=== PATIENT | male | born 1950 | race Caucasian/White ===

== ENCOUNTER 2017-06-15 05:14 | Emergency (ER) | payer OTHER, MEDICARE ==
[2017-06-15] MEDS ORDERED: Sodium Chloride 0.9% 2.5 ML Syringe FLUSH PRN (06:01)
[2017-06-15] MEDS ORDERED: Sodium Chloride 0.9% 10 ML Syringe FLUSH PRN (06:01)
[2017-06-15] MEDS ORDERED: Sodium Chloride 0.9% 1,000 ML IV ONE (06:03)
--- NOTE | 2017-06-15 06:03 | EDM.PDOC ---
ED HPI GENERAL MEDICAL PROBLEM - General Chief Complaint: Skin Complaint Stated Complaint: LIGHT-HEADED, FEVERISH, NEW MEDICINE Time Seen by Provider: 06/15/17 06:59 - History of Present Illness INITIAL COMMENTS - FREE TEXT/NARRATIVE: HISTORY AND PHYSICAL: History of present illness: Patient 67-year-old male presents with a concern of intermittent fever chills who recently had a cellulitis on his right leg for which he was put on Bactrim. He's had no chest pain no shortness of breath describes an episode of diaphoresis today. He denies abdominal pain and does also admit that the cellulitis on his right leg is markedly improved. Review of systems: As per history of present illness and below otherwise all systems reviewed and negative. Past medical history: As per history of present illness and as reviewed below otherwise noncontributory. Surgical history: As per history of present illness and as reviewed below otherwise noncontributory. Social history: No reported history of drug or alcohol abuse. Family history: As per history of present illness and as reviewed below otherwise noncontributory. Physical exam: HEENT: Atraumatic, normocephalic, pupils reactive, negative for conjunctival pallor or scleral icterus, mucous membranes moist, throat clear, neck supple, nontender, trachea midline. Lungs: Clear to auscultation, breath sounds equal bilaterally, chest nontender. Heart: S1S2, regular, negative for clicks, rubs, or JVD. Abdomen: Soft, nondistended, nontender. Negative for masses or hepatosplenomegaly. Negative for costovertebral tenderness. Pelvis: Stable nontender. Genitourinary: Deferred. Rectal: Deferred. Extremities: Patient is a small excoriated area on his right lower leg minutes proximally 2 cm in diameter is no fluctuance no induration neurovascular exam is unremarkable Neuro: Awake, alert, oriented. Cranial nerves II through XII unremarkable. Cerebellum unremarkable. Motor and sensory unremarkable throughout. Exam nonfocal. Diagnostics: CBC CMP troponin PT/INR chest x-ray influenza screen x-ray right tib-fib blood culture 2 UA urine culture Therapeutics: Saline 1 L bolus Impression: #1 history of fever #2 history of cellulitis right leg improving Definitive disposition and diagnosis as appropriate pending reevaluation and review of above. - Related Data Allergies Allergy/AdvReac Type Severity Reaction Status Date / Time No Known Allergies Allergy Verified 06/15/17 05:20 Home Meds: Home Meds Aspirin/Calcium Carbonate/Mag [Aspirin Buffered 325 mg Tab] 81 tab PO DAILY 10/03 [History] Ascorbic Acid/Bioflavonoids [Vit C-Bioflavonoids SA] 1,000 mg PO DAILY 03/14/16 [History] Coconut Oil 1,200 mg PO DAILY 03/14/16 [History] Fish Oil/DHA/EPA [Fish Oil 1,200 MG] 1 cap PO QID 03/14/16 [History] Flaxseed Oil [Flax Oil] 1 cap PO BID 03/14/16 [History] Glucosam HCl/[place] A/C/Mn [Glucosamine-Chondroitin Cap] 2 cap PO DAILY [History] Losartan Potassium 1 tab PO DAILY 03/14/16 [History] Lutein/Min/Vit C/Vit E Acetate [Ocuvite Lutein] 1 cap PO DAILY 03/14/16 [History ] Multivit&Min/FA/Lycopene/[place] [Bladder 2.2] 1 cap PO DAILY 03/14/16 [History] Neuro-Ps 50 mg PO DAILY 03/14/16 [History] Niacin (Inositol Niacinate) [Niacin Flush Free 500 mg Cap] 1 cap PO DAILY [History] Ubidecarenone [Co Q-10] 2 cap PO DAILY 03/14/16 [History] amLODIPine [Norvasc] 5 mg PO DAILY 03/14/16 [History] Finasteride 5 mg PO DAILY 06/15/17 [History] Mupirocin Oint [Bactroban Nasal Oint] 1 applic TOP TID 06/15/17 [History] Sulfamethoxazole/Trimethoprim [Bactrim Ds Tablet] 1 tab PO BID 06/15/17 [History ] Tamsulosin [Tamsulosin 24 Hr] 0.4 mg PO DAILY 06/15/17 [History] Past Medical History HEENT History: Reports: Impaired Vision Other HEENT History: wears reading glasses Cardiovascular History: Reports: Arrhythmia, High Cholesterol, Hypertension Respiratory History: Reports: None Gastrointestinal History: Reports: None Genitourinary History: Reports: None Musculoskeletal History: Reports: Fracture Neurological History: Reports: Vertigo Other Neuro History: hx of motion sickness, hx of vertigo Psychiatric History: Reports: None Endocrine/Metabolic History: Reports: None Hematologic History: Reports: None Immunologic History: Reports: None Oncologic (Cancer) History: Reports: None Dermatologic History: Reports: None - Infectious Disease History Infectious Disease History: Reports: None - Past Surgical History Head Surgeries/Procedures: Reports: None HEENT Surgical History: Reports: None Respiratory Surgical History: Reports: None GI Surgical History: Reports: None Male Surgical History: Reports: None Endocrine Surgical History: Reports: None Musculoskeletal Surgical History: Reports: ORIF Other Musculoskeletal Surgeries/Procedures:: ORIF left ring finger with pin removal Oncologic Surgical History: Reports: None Dermatological Surgical History: Reports: None Social & Family History - Family History Family Medical History: Noncontributory - Tobacco Use Smoking Status *Q: Never Smoker - Recreational Drug Use Recreational Drug Use: No Drug Use in Last 12 Months: No ED ROS GENERAL - Review of Systems Review Of Systems: ROS reveals no pertinent complaints other than HPI. ED EXAM, SKIN/RASH Exam: See Below (See dictation) Course - Vital Signs Last Recorded V/S: Last Vital Signs Temp 36.1 C 06/15/17 05:14 Pulse 69 06/15/17 05:14 Resp 18 06/15/17 05:14 BP 140/75 06/15/17 05:14 Pulse Ox 98 06/15/17 05:14 - Orders/Labs/Meds Orders: Active Orders 24 hr Category Date Time Status EKG Documentation Completion [RC] STAT Care 06/15/17 06:01 Active Chest 2V [CR] Stat Exams 06/15/17 06:03 Ordered Tibia Fibula Rt [CR] Stat Exams 06/15/17 06:03 Ordered COMPREHENSIVE METABOLIC PN,CMP [CHEM] Stat Lab 06/15/17 06:20 Results CULTURE BLOOD [BC] Stat Lab 06/15/17 06:20 Received CULTURE BLOOD [BC] Stat Lab 06/15/17 06:30 Received CULTURE URINE [RM] Stat Lab 06/15/17 06:02 Ordered TROPONIN I [CHEM] Stat Lab 06/15/17 06:20 Results UA W/MICROSCOPIC [URIN] Stat Lab 06/15/17 06:02 Ordered Sodium Chloride 0.9% [Normal Saline] 1,000 ml Med 06/15/17 06:03 Active IV STAT Sodium Chloride 0.9% [Saline Flush] Med 06/15/17 06:01 Active 10 ml FLUSH ASDIRECTED PRN Sodium Chloride 0.9% [Saline Flush] Med 06/15/17 06:01 Active 2.5 ml FLUSH ASDIRECTED PRN Saline Lock Insert [OM.PC] Stat Oth 06/15/17 06:01 Ordered Medication Orders Sodium Chloride (Normal Saline) 1,000 mls @ 999 mls/hr IV STAT ONE Stop: 06/15/17 07:03 Last Admin: 06/15/17 06:28 Dose: 999 mls/hr Sodium Chloride (Saline Flush) 10 ml FLUSH ASDIRECTED PRN PRN Reason: Keep Vein Open Sodium Chloride (Saline Flush) 2.5 ml FLUSH ASDIRECTED PRN PRN Reason: Keep Vein Open Labs: Laboratory Tests 06/15/17 06/15/17 06/15/17 Range/Units 06:20 06:20 06:20 WBC 3.83 L (4.0-11.0) K/uL RBC 5.41 (4.50-5.90) M/uL Hgb 15.0 (13.0-17.0) g/dL Hct 43.7 (38.0-50.0) % MCV 80.8 (80.0-98.0) fL MCH 27.7 (27.0-32.0) pg MCHC 34.3 (31.0-37.0) g/dL RDW Std Deviation 40.8 (28.0-62.0) fl RDW Coeff of Harika 14 (11.0-15.0) % Plt Count 109 L (150-400) K/uL MPV 9.00 (7.40-12.00) fL Neut % (Auto) 72.8 (48.0-80.0) % Lymph % (Auto) 9.9 L (16.0-40.0) % [place] % (Auto) 11.0 (0.0-15.0) % Eos % (Auto) 6.0 (0.0-7.0) % Baso % (Auto) 0.3 (0.0-1.5) % Neut # (Auto) 2.8 (1.4-5.7) K/uL Lymph # (Auto) 0.4 L (0.6-2.4) K/uL [place] # (Auto) 0.4 (0.0-0.8) K/uL Eos # (Auto) 0.2 (0.0-0.7) K/uL Baso # (Auto) 0.0 (0.0-0.1) K/uL Nucleated RBC % 0.0 /100WBC Nucleated RBCs # 0 K/uL INR 1.02 Lactate 1.0 (0.20-2.00) mmol/L Sodium (136-146) mmol/L Potassium (3.5-5.1) mmol/L Chloride (98-110) mmol/L Carbon Dioxide (21-31) mmol/L BUN (6.0-23.0) mg/dL Creatinine (0.6-1.5) mg/dL Est Cr Clr Drug Dosing Estimated GFR (MDRD) ml/min Glucose (60-110) mg/dL Calcium (8.8-10.8) mg/dL Total Bilirubin (0.1-1.5) mg/dL AST (5-40) IU/L ALT (8-54) IU/L Alkaline Phosphatase (40-150) Total Protein (6.0-8.0) g/dL Albumin (3.4-4.8) g/dL Globulin (2.0-3.5) g/dL Albumin/Globulin Ratio (1.3-2.8) 06/15/17 Range/Units 06:20 WBC (4.0-11.0) K/uL RBC (4.50-5.90) M/uL Hgb (13.0-17.0) g/dL Hct (38.0-50.0) % MCV (80.0-98.0) fL MCH (27.0-32.0) pg MCHC (31.0-37.0) g/dL RDW Std Deviation (28.0-62.0) fl RDW Coeff of Harika (11.0-15.0) % Plt Count (150-400) K/uL MPV (7.40-12.00) fL Neut % (Auto) (48.0-80.0) % Lymph % (Auto) (16.0-40.0) % [place] % (Auto) (0.0-15.0) % Eos % (Auto) (0.0-7.0) % Baso % (Auto) (0.0-1.5) % Neut # (Auto) (1.4-5.7) K/uL Lymph # (Auto) (0.6-2.4) K/uL [place] # (Auto) (0.0-0.8) K/uL Eos # (Auto) (0.0-0.7) K/uL Baso # (Auto) (0.0-0.1) K/uL Nucleated RBC % /100WBC Nucleated RBCs # K/uL INR Lactate (0.20-2.00) mmol/L Sodium 135 L (136-146) mmol/L Potassium 3.7 (3.5-5.1) mmol/L Chloride 105 (98-110) mmol/L Carbon Dioxide 20 L (21-31) mmol/L BUN 22 (6.0-23.0) mg/dL Creatinine 1.6 H (0.6-1.5) mg/dL Est Cr Clr Drug Dosing TNP Estimated GFR (MDRD) 43.1 ml/min Glucose 112 H (60-110) mg/dL Calcium 9.4 (8.8-10.8) mg/dL Total Bilirubin 1.3 (0.1-1.5) mg/dL AST 69 H (5-40) IU/L ALT 103 H (8-54) IU/L Alkaline Phosphatase 99 (40-150) Total Protein 6.3 (6.0-8.0) g/dL Albumin 3.8 (3.4-4.8) g/dL Globulin 2.5 (2.0-3.5) g/dL Albumin/Globulin Ratio 1.5 (1.3-2.8) Meds: Medications Generic Name Dose Route Start Last Admin Trade Name Freq PRN Reason Stop Dose Admin Sodium Chloride 1,000 mls @ 999 mls/hr 06/15/17 06:03 06/15/17 06:28 Normal Saline IV 06/15/17 07:03 999 mls/hr STAT ONE Administration Sodium Chloride 10 ml 06/15/17 06:01 Saline Flush FLUSH ASDIRECTED PRN Keep Vein Open Sodium Chloride 2.5 ml 06/15/17 06:01 Saline Flush FLUSH ASDIRECTED PRN Keep Vein Open Departure - Departure Time of Disposition: 06:59 Disposition: Home, Self-Care 01 Condition: Good Clinical Impression: Cellulitis, Encounter for medical screening examination - Discharge Information Referrals: Olga Lidia Gu, [employer] [Primary Care Provider] - Forms: ED Department Discharge Additional Instructions: The following information is given to patients seen in the emergency department who are being discharged to home. This information is to outline your options for follow-up care. We provide all patients seen in our emergency department with a follow-up referral. The need for follow-up, as well as the timing and circumstances, are variable depending upon the specifics of your emergency department visit. If you don't have a primary care physician on staff, we will provide you with a referral. We always advise you to contact your personal physician following an emergency department visit to inform them of the circumstance of the visit and for follow-up with them and/or the need for any referrals to a consulting specialist. The emergency department will also refer you to a specialist when appropriate. This referral assures that you have the opportunity for followup care with a specialist. All of these measure are taken in an effort to provide you with optimal care, which includes your followup. Under all circumstances we always encourage you to contact your private physician who remains a resource for coordinating your care. When calling for followup care, please make the office aware that this follow-up is from your recent emergency room visit. If for any reason you are refused follow-up, please contact the [facility] emergency department at and asked to speak to the emergency department charge nurse. Continue medications as prescribed follow-up primary medical doctor on the today 's return as needed as discussed - My Orders Last 24 Hours: My Active Orders 06/15/17 06:01 EKG Documentation Completion [RC] STAT Sodium Chloride 0.9% [Saline Flush] 10 ml FLUSH ASDIRECTED PRN Sodium Chloride 0.9% [Saline Flush] 2.5 ml FLUSH ASDIRECTED PRN Saline Lock Insert [OM.PC] Stat 06/15/17 06:02 CULTURE URINE [RM] Stat UA W/MICROSCOPIC [URIN] Stat 06/15/17 06:03 Chest 2V [CR] Stat Tibia Fibula Rt [CR] Stat Sodium Chloride 0.9% [Normal Saline] 1,000 ml IV STAT 06/15/17 06:20 COMPREHENSIVE METABOLIC PN,CMP [CHEM] Stat CULTURE BLOOD [BC] Stat TROPONIN I [CHEM] Stat 06/15/17 06:30 CULTURE BLOOD [BC] Stat - Assessment/Plan Last 24 Hours: My Active Orders 06/15/17 06:01 EKG Documentation Completion [RC] STAT Sodium Chloride 0.9% [Saline Flush] 10 ml FLUSH ASDIRECTED PRN Sodium Chloride 0.9% [Saline Flush] 2.5 ml FLUSH ASDIRECTED PRN Saline Lock Insert [OM.PC] Stat 06/15/17 06:02 CULTURE URINE [RM] Stat UA W/MICROSCOPIC [URIN] Stat 06/15/17 06:03 Chest 2V [CR] Stat Tibia Fibula Rt [CR] Stat Sodium Chloride 0.9% [Normal Saline] 1,000 ml IV STAT 06/15/17 06:20 COMPREHENSIVE METABOLIC PN,CMP [CHEM] Stat CULTURE BLOOD [BC] Stat TROPONIN I [CHEM] Stat 06/15/17 06:30 CULTURE BLOOD [BC] Stat
[2017-06-15 06:53] LABS: CHLORIDE,CL 105 mmol/L (98-110); SODIUM,NA 135 mmol/L (136-146)
[2017-06-15 08:06] VITALS: BP 125/73
--- NOTE | 2017-06-15 15:07 | CR ---
EXAM DATE: 06/15/17 PATIENT'S AGE: 67 Patient: LUIZA EASON Facility: [place], [place] Site . Site : 1950 Study: XRay Chest [id number]/26/2018 7:33:23 AM Ordering Physician: Nancy Umana Final Report: INDICATION: Fever and chills COMPARISON: none TECHNIQUE: Two view chest. FINDINGS: The lungs are clear. The heart, mediastinum and pulmonary vessels are of normal size. There is no evidence of pleural fluid. IMPRESSION: No pneumonia Dictated by Dong Horowitz MD @ Jun 15 2017 7:35AM (Electronic Signature) Report Signed by Proxy. [facility] HOSPITALRosemary
--- NOTE | 2017-06-15 15:08 | CR ---
EXAM DATE: 06/15/17 PATIENT'S AGE: 67 Patient: LUIZA EASON Facility: [place], [place] Site . Site : 1950 Study: XRay Extremity Right TIB FIB [id number]/26/2018 7:34:04 AM Ordering Physician: Nancy Umana Final Report: INDICATION: Nonhealing sore within the right lower leg. TECHNIQUE: 2-view tibia and fibula. COMPARISON: none FINDINGS: The knee and ankle are anatomically aligned. There is no evidence of a bone erosion, fracture or periosteal new bone formation within the tibia and fibula. There is no evidence gas within the soft tissues. IMPRESSION: No evidence of osteomyelitis. Dictated by Dong Horowitz MD @ Jun 15 2017 7:35AM (Electronic Signature) Report Signed by Proxy. ANAMIKA
== END 2017-06-15 08:04 | disposition home or self-care (01) ==
LOC: MW.ED 05:14
DX: L03.115 Cellulitis of right lower limb (principal); I10 Essential (primary) hypertension; E78.00 Pure hypercholesterolemia, unspecified; Z79.899 Other long term (current) drug therapy; Z79.82 Long term (current) use of aspirin
CPT/HCPCS: 36415; 71046; 73590; 80053; 81001; 82962; 83605; 84484; 85025; 85610; 87040; 87086; 87804; 93005; 96360; 99284; J7040; 99283

== ENCOUNTER 2019-02-17 09:37 | Emergency (ER) | payer OTHER, MEDICARE ==
[2019-02-17] MEDS ORDERED: Sodium Chloride 0.9% 1,000 ML IV SCH (09:45)
--- NOTE | 2019-02-17 09:48 | EDM.PDOC ---
ED HPI GENERAL MEDICAL PROBLEM - General Chief Complaint: General Stated Complaint: [facility] REFERRAL Time Seen by Provider: 02/17/19 09:48 Source of Information: Reports: Patient - History of Present Illness INITIAL COMMENTS - FREE TEXT/NARRATIVE: HISTORY AND PHYSICAL: History of present illness: [Patient presents with complaint of fever last night, temperature measured at 100.2 He was known to be neutropenic on file from 1028 followed to the cancer Center here in town, they had called updating that the patient would be in for an evaluation at current he feels well no fever nausea vomiting chills sweats no chest pain shortness breath headache dizziness palpitation no bowel or urine symptoms Repeat lab reveals white count has improved he is no longer neutropenic and is afebrile Review of systems: As per history of present illness and below otherwise all systems reviewed and negative. Past medical history: As per history of present illness and as reviewed below otherwise noncontributory. Surgical history: As per history of present illness and as reviewed below otherwise noncontributory. Social history: No reported history of drug or alcohol abuse. Family history: As per history of present illness and as reviewed below otherwise noncontributory. Physical exam: HEENT: Atraumatic, normocephalic, pupils reactive, negative for conjunctival pallor or scleral icterus, mucous membranes moist, throat clear, neck supple, nontender, trachea midline. Lungs: Clear to auscultation, breath sounds equal bilaterally, chest nontender. Heart: S1S2, regular, negative for clicks, rubs, or JVD. Abdomen: Soft, nondistended, nontender. Negative for masses or hepatosplenomegaly. Negative for costovertebral tenderness. Pelvis: Stable nontender. Genitourinary: Deferred. Rectal: Deferred. Extremities: Atraumatic, negative for cords or calf pain. Neurovascular unremarkable. Neuro: Awake, alert, oriented. Cranial nerves II through XII unremarkable. Cerebellum unremarkable. Motor and sensory unremarkable throughout. Exam nonfocal. Diagnostics: [CBC CMP UA blood cultures 2 Chest x-ray ] Therapeutics: [Normal saline Zosyn Vancomycin Patient offered admission however he refuses In lieu of this Augmentin and ProAir HFA provided return if symptoms persist or worsen ] Impression: [Afebrile Mild dehydration Chronic history of baseline ] Definitive disposition and diagnosis as appropriate pending reevaluation and review of above. Right Lower Back Pain Score (Numeric/FACES): 1 - Related Data Allergies Allergy/AdvReac Type Severity Reaction Status Date / Time No Known Allergies Allergy Verified 06/15/17 05:20 Home Meds: Home Meds Losartan Potassium 50 tab PO DAILY 03/14/16 [History] amLODIPine [Norvasc] 5 mg PO DAILY 03/14/16 [History] Finasteride 5 mg PO DAILY 06/15/17 [History] Morphine 15 mg PO Q4H PRN 02/17/19 [History] Past Medical History HEENT History: Reports: Impaired Vision Other HEENT History: wears reading glasses Cardiovascular History: Reports: Arrhythmia, High Cholesterol, Hypertension Respiratory History: Reports: None Gastrointestinal History: Reports: None Genitourinary History: Reports: None Musculoskeletal History: Reports: Fracture Neurological History: Reports: Vertigo Other Neuro History: hx of motion sickness, hx of vertigo Psychiatric History: Reports: None Endocrine/Metabolic History: Reports: None Hematologic History: Reports: None Immunologic History: Reports: None Oncologic (Cancer) History: Reports: None Dermatologic History: Reports: None - Infectious Disease History Infectious Disease History: Reports: None - Past Surgical History Head Surgeries/Procedures: Reports: None HEENT Surgical History: Reports: None Respiratory Surgical History: Reports: None GI Surgical History: Reports: None Male Surgical History: Reports: None Endocrine Surgical History: Reports: None Musculoskeletal Surgical History: Reports: ORIF Other Musculoskeletal Surgeries/Procedures:: ORIF left ring finger with pin removal Oncologic Surgical History: Reports: None Dermatological Surgical History: Reports: None Social & Family History - Family History Family Medical History: Noncontributory ED ROS GENERAL - Review of Systems Review Of Systems: See Below ED EXAM, GENERAL - Physical Exam Exam: See Below Course - Vital Signs Last Recorded V/S: Last Vital Signs Temp 96.8 F 02/17/19 11:10 Pulse 90 02/17/19 11:10 Resp 18 02/17/19 11:10 BP 109/57 L 02/17/19 11:10 Pulse Ox 97 02/17/19 11:10 - Orders/Labs/Meds Orders: Active Orders 24 hr Category Date Time Status RT Aerosol Therapy [RC] ASDIRECTED Care 02/17/19 10:58 Active CULTURE BLOOD [BC] Stat Lab 02/17/19 10:00 Received CULTURE BLOOD [BC] Stat Lab 02/17/19 10:15 Received Sodium Chloride 0.9% [Normal Saline] 1,000 ml Med 02/17/19 09:45 Active IV STAT Blood Culture x2 Reflex Set [OM.PC] Stat Oth 02/17/19 09:40 Ordered Medication Orders Sodium Chloride (Normal Saline) 1,000 mls @ 125 mls/hr IV STAT SMITH Last Admin: 02/17/19 09:59 Dose: 125 mls/hr Labs: Laboratory Tests 02/17/19 02/17/19 02/17/19 Range/Units 10:00 10:00 10:00 WBC 6.23 (4.0-11.0) K/uL RBC 4.38 L (4.50-5.90) M/uL Hgb 11.5 L (13.0-17.0) g/dL Hct 34.8 L (38.0-50.0) % MCV 79.5 L (80.0-98.0) fL MCH 26.3 L (27.0-32.0) pg MCHC 33.0 (31.0-37.0) g/dL RDW Std Deviation 40.2 (28.0-62.0) fl RDW Coeff of Harika 14 (11.0-15.0) % Plt Count 160 (150-400) K/uL MPV 9.70 (7.40-12.00) fL Add Manual Diff YES Neutrophils % (Manual) 47 L (48.0-80.0) % Band Neutrophils % 22 % Lymphocytes % (Manual) 18 (16.0-40.0) % Monocytes % (Manual) 9 (0.0-15.0) % Basophils % (Manual) 3 H (0.0-1.5) % Metamyelocytes % 1 % Nucleated RBC % 0.4 /100WBC Absolute Seg Neuts 2.9 (1.4-5.7) Band Neutrophils # 1.4 Lymphocytes # (Manual) 1.1 (0.6-2.4) Monocytes # (Manual) 0.6 (0.0-0.8) Basophils # (Manual) 0.2 H (0.0-0.1) Absolute Metamyelocyte 0.1 Nucleated RBCs # 0 K/uL Lactate 2.0 (0.20-2.00) mmol/L Sodium 140 (136-148) mmol/L Potassium 3.8 (3.5-5.1) mmol/L Chloride 102 (98-107) mmol/L Carbon Dioxide 27.2 (21.0-32.0) mmol/L BUN 13 (7.0-18.0) mg/dL Creatinine 1.0 (0.8-1.3) mg/dL Est Cr Clr Drug Dosing 68.74 mL/min Estimated GFR (MDRD) > 60.0 ml/min Glucose 117 H (74-106) mg/dL Calcium 8.7 (8.5-10.1) mg/dL Total Bilirubin 0.5 (0.2-1.0) mg/dL AST 20 (15-37) IU/L ALT 48 (14-63) IU/L Alkaline Phosphatase 74 (46-116) U/L B-Natriuretic Peptide (<100) PG/ML Total Protein 6.4 (6.4-8.2) g/dL Albumin 2.9 L (3.4-5.0) g/dL Globulin 3.5 (2.6-4.0) g/dL Albumin/Globulin Ratio 0.8 L (0.9-1.6) Urine Color Urine Appearance Urine pH (5.0-8.0) Ur Specific [place] (1.001-1.035) Urine Protein (NEGATIVE) mg/dL Urine Glucose (UA) (NEGATIVE) mg/dL Urine Ketones (NEGATIVE) mg/dL Urine Occult Blood (NEGATIVE) Urine Nitrite (NEGATIVE) Urine Bilirubin (NEGATIVE) Urine Urobilinogen (<2.0) EU/dL Ur Leukocyte Esterase (NEGATIVE) Urine RBC (0-2/HPF) Urine WBC (0-5/HPF) Ur Epithelial Cells (NONE-FEW) Calcium Oxalate Crystal (NEGATIVE) Urine Bacteria (NEGATIVE) Urine Mucus (NONE-MOD) 02/17/19 02/17/19 Range/Units 10:00 11:45 WBC (4.0-11.0) K/uL RBC (4.50-5.90) M/uL Hgb (13.0-17.0) g/dL Hct (38.0-50.0) % MCV (80.0-98.0) fL MCH (27.0-32.0) pg MCHC (31.0-37.0) g/dL RDW Std Deviation (28.0-62.0) fl RDW Coeff of Harika (11.0-15.0) % Plt Count (150-400) K/uL MPV (7.40-12.00) fL Add Manual Diff Neutrophils % (Manual) (48.0-80.0) % Band Neutrophils % % Lymphocytes % (Manual) (16.0-40.0) % Monocytes % (Manual) (0.0-15.0) % Basophils % (Manual) (0.0-1.5) % Metamyelocytes % % Nucleated RBC % /100WBC Absolute Seg Neuts (1.4-5.7) Band Neutrophils # Lymphocytes # (Manual) (0.6-2.4) Monocytes # (Manual) (0.0-0.8) Basophils # (Manual) (0.0-0.1) Absolute Metamyelocyte Nucleated RBCs # K/uL Lactate (0.20-2.00) mmol/L Sodium (136-148) mmol/L Potassium (3.5-5.1) mmol/L Chloride (98-107) mmol/L Carbon Dioxide (21.0-32.0) mmol/L BUN (7.0-18.0) mg/dL Creatinine (0.8-1.3) mg/dL Est Cr Clr Drug Dosing mL/min Estimated GFR (MDRD) ml/min Glucose (74-106) mg/dL Calcium (8.5-10.1) mg/dL Total Bilirubin (0.2-1.0) mg/dL AST (15-37) IU/L ALT (14-63) IU/L Alkaline Phosphatase (46-116) U/L B-Natriuretic Peptide 24 (<100) PG/ML Total Protein (6.4-8.2) g/dL Albumin (3.4-5.0) g/dL Globulin (2.6-4.0) g/dL Albumin/Globulin Ratio (0.9-1.6) Urine Color YELLOW Urine Appearance HAZY Urine pH 6.0 (5.0-8.0) Ur Specific [place] 1.020 (1.001-1.035) Urine Protein TRACE H (NEGATIVE) mg/dL Urine Glucose (UA) NEGATIVE (NEGATIVE) mg/dL Urine Ketones NEGATIVE (NEGATIVE) mg/dL Urine Occult Blood NEGATIVE (NEGATIVE) Urine Nitrite NEGATIVE (NEGATIVE) Urine Bilirubin NEGATIVE (NEGATIVE) Urine Urobilinogen 0.2 (<2.0) EU/dL Ur Leukocyte Esterase NEGATIVE (NEGATIVE) Urine RBC 0-2 (0-2/HPF) Urine WBC 0-2 (0-5/HPF) Ur Epithelial Cells RARE (NONE-FEW) Calcium Oxalate Crystal FEW (NEGATIVE) Urine Bacteria FEW (NEGATIVE) Urine Mucus LIGHT (NONE-MOD) Meds: Medications Generic Name Dose Route Start Last Admin Trade Name Freq PRN Reason Stop Dose Admin Sodium Chloride 1,000 mls @ 125 mls/hr 02/17/19 09:45 02/17/19 09:59 Normal Saline IV 125 mls/hr STAT SMITH Administration Discontinued Medications Generic Name Dose Route Start Last Admin Trade Name Freq PRN Reason Stop Dose Admin Albuterol/Ipratropium 3 ml 02/17/19 10:58 02/17/19 11:20 Duoneb 3.0-0.5 Mg/3 Ml NEB 02/17/19 10:59 3 ml ONETIME ONE Administration Piperacillin Sod/Tazobactam 50 mls @ 100 mls/hr 02/17/19 10:13 02/17/19 10:29 Sod 3.375 gm/ Sodium Chloride IV 02/17/19 10:42 100 mls/hr ONETIME ONE Administration Vancomycin HCl 1 gm/ Sodium 250 mls @ 166 mls/hr 02/17/19 10:12 02/17/19 11: 08 Chloride IV 02/17/19 11:42 166 mls/hr ONETIME ONE Administration Departure - Departure Time of Disposition: 12:15 Disposition: Home, Self-Care 01 Condition: Good Clinical Impression: Cough, Encounter for medical screening examination - Discharge Information Referrals: [facility] [Primary Care Provider] - Forms: ED Department Discharge Additional Instructions: The following information is given to patients seen in the emergency department who are being discharged to home. This information is to outline your options for follow-up care. We provide all patients seen in our emergency department with a follow-up referral. The need for follow-up, as well as the timing and circumstances, are variable depending upon the specifics of your emergency department visit. If you don't have a primary care physician on staff, we will provide you with a referral. We always advise you to contact your personal physician following an emergency department visit to inform them of the circumstance of the visit and for follow-up with them and/or the need for any referrals to a consulting specialist. The emergency department will also refer you to a specialist when appropriate. This referral assures that you have the opportunity for follow-up care with a specialist. All of these measure are taken in an effort to provide you with optimal care, which includes your follow-up. Under all circumstances we always encourage you to contact your private physician who remains a resource for coordinating your care. When calling for follow-up care, please make the office aware that this follow-up is from your recent emergency room visit. If for any reason you are refused follow-up, please contact the [facility] emergency department at and asked to speak to the emergency department charge nurse. - My Orders Last 24 Hours: My Active Orders 02/17/19 09:40 Blood Culture x2 Reflex Set [OM.PC] Stat 02/17/19 09:45 Sodium Chloride 0.9% [Normal Saline] 1,000 ml IV STAT 02/17/19 10:00 CULTURE BLOOD [BC] Stat 02/17/19 10:15 CULTURE BLOOD [BC] Stat 02/17/19 10:58 RT Aerosol Therapy [RC] ASDIRECTED - Assessment/Plan Last 24 Hours: My Active Orders 02/17/19 09:40 Blood Culture x2 Reflex Set [OM.PC] Stat 02/17/19 09:45 Sodium Chloride 0.9% [Normal Saline] 1,000 ml IV STAT 02/17/19 10:00 CULTURE BLOOD [BC] Stat 02/17/19 10:15 CULTURE BLOOD [BC] Stat 02/17/19 10:58 RT Aerosol Therapy [RC] ASDIRECTED
[2019-02-17] MEDS ORDERED: Piperacillin/Tazobactam 3.375 GM in Sodium Chloride 0.9% 50 ML IV ONE (10:13)
--- NOTE | 2019-02-17 10:20 | CR ---
INDICATION: Fever COMPARISON: Two view chest dated 06/15/2017. TECHNIQUE: Portable AP erect chest performed at 10:03 a.m. FINDINGS: The lungs are clear. There is stable scarring at the left lung base. The heart, mediastinum and pulmonary vessels are of normal size. There is no evidence of pleural fluid. IMPRESSION: No pneumonia Dictated by Dong Horowitz MD @ Feb 17 2019 10:18AM Signed by Dr. Dong Horowitz @ Feb 17 2019 10:18AM
[2019-02-17 10:40] LABS: BLOOD UREA NITROGEN,BUN 13 mg/dL (7.0-18.0); CARBON DIOXIDE,CO2 27.2 mmol/L (21.0-32.0); CHLORIDE,CL 102 mmol/L (98-107); GLUCOSE RANDOM 117 mg/dL (74-106); POTASSIUM,K 3.8 mmol/L (3.5-5.1); SODIUM,NA 140 mmol/L (136-148)
[2019-02-17] MEDS ORDERED: Albuterol/Ipratropium 3.0-0.5 MG/3 ML Neb Soln NEB ONE (10:58)
[2019-02-17 14:19] VITALS: BP 103/65; PULSE 89
== END 2019-02-17 12:41 | disposition home or self-care (01) ==
LOC: MW.ED 09:37
DX: E86.0 Dehydration (principal); R05 Cough; I10 Essential (primary) hypertension; Z79.899 Other long term (current) drug therapy
CPT/HCPCS: 36415; 71045; 80053; 81001; 83605; 83880; 85025; 87040; 94640; 96365; 96367; 99284; J2543; J3370; J7040; J7050; J7620-GY

== ENCOUNTER 2019-02-18 21:31 | Emergency (ER) | payer OTHER, MEDICARE | END 2019-02-18 21:50 | disposition home or self-care (01) | LOC: MW.ED 21:31 | DX: Z53.21 Procedure and treatment not carried out due to patient leaving prior to being seen by health care provider (principal) ==

== ENCOUNTER 2019-02-25 06:40 | Day surgery (SDC) | payer OTHER, MEDICARE ==
[~2019-02-25 06:40] MED LIST: Lactated Ringers 1,000 ML IV SCH; Sodium Chloride 0.9% 10 ML SDV IV PRN; Sodium Chloride 0.9% 10 ML Syringe FLUSH PRN; Sodium Chloride 0.9% 2.5 ML Syringe FLUSH PRN; ceFAZolin 2 GM in Premix Bag 1 BAG IV ONE
[2019-02-25] MEDS ORDERED: fentaNYL 100 MCG/2 ML SDV ONE (07:12)
[2019-02-25] MEDS ORDERED: Lidocaine 2% 5 ML SDV ONE (07:12)
[2019-02-25] MEDS ORDERED: Propofol 200 MG/20 ML SDV ONE (07:12)
[2019-02-25] MEDS ORDERED: Midazolam 1 MG/ML 2 ML SDV ONE (07:12)
[2019-02-25] MEDS ORDERED: Bupivacaine 0.5% 10 ML SDV ONE (07:18)
[2019-02-25] MEDS ORDERED: Octyl 2-Cyanoacrylate 1 Tube ONE (07:19)
[2019-02-25] MEDS ORDERED: Iopamidol 408 MG/ML 50 ML SDV ONE (07:19)
[2019-02-25] MEDS ORDERED: Heparin Sodium 100 Units/ML 3 ML Syringe ONE (07:19)
[2019-02-25] MEDS ORDERED: Lidocaine 1% 20 ML MDV ONE (07:19)
--- NOTE | 2019-02-25 07:41 | PCM.PREANE ---
Preanesthetic Assessment - Anesthesia/Transfusion/Family Hx Anesthesia History: Prior Anesthesia Without Reaction Family History of Anesthesia Reaction: No Transfusion History: No Prior Transfusion(s) - Review of Systems General: No Symptoms Pulmonary: No Symptoms Cardiovascular: No Symptoms Gastrointestinal: No Symptoms Neurological: No Symptoms Other: Reports: None - Physical Assessment NPO Status Date: 02/24/19 Vital Signs: Last Vital Signs Temp 97.9 F 02/25/19 06:53 Pulse 101 H 02/25/19 06:53 Resp 14 02/25/19 06:53 BP 111/70 02/25/19 06:53 Pulse Ox 97 02/25/19 06:53 Height: 5 ft 9 in Weight: 78.925 kg ASA Class: 2 Mental Status: Alert & Oriented x3 Dentition: Reports: Normal Dentition ROM/Head Extension: Full Lungs: Clear to Auscultation, Normal Respiratory Effort Cardiovascular: Regular Rate, Regular Rhythm - Allergies Allergies/Adverse Reactions: Allergies Allergy/AdvReac Type Severity Reaction Status Date / Time No Known Allergies Allergy Verified 02/25/19 07:18 - Blood Blood Available: No - Anesthesia Plan Pre-Op Medication Ordered: None - Acknowledgements Anesthesia Type Planned: General Anesthesia Pt an Appropriate Candidate for the Planned Anesthesia: Yes Alternatives and Risks of Anesthesia Discussed w Pt/Guardian: Yes Pt/Guardian Understands and Agrees with Anesthesia Plan: Yes Additional Comments: PMH: bph, htn , periph neuropathy, renal cell ca, t cell lymphoma, con narcotics - fent patch x2 and oral morphine PLAN: GA with either ett or LMA PreAnesthesia Questionnaire HEENT History: Reports: Impaired Vision Other HEENT History: wears reading glasses Cardiovascular History: Reports: Arrhythmia, High Cholesterol, Hypertension Respiratory History: Reports: Other (See Below) Other Respiratory History: over 1 week ago was prescribed inhaler for cough and congestion, no problems now Gastrointestinal History: Reports: None Genitourinary History: Reports: Other (See Below) Other Genitourinary History: kidney cancer Musculoskeletal History: Reports: Fracture Neurological History: Reports: Vertigo Other Neuro History: hx of motion sickness, hx of vertigo Psychiatric History: Reports: None Endocrine/Metabolic History: Reports: None Hematologic History: Reports: None Immunologic History: Reports: None Oncologic (Cancer) History: Reports: Other (See Below) Other Oncologic History: T-cell lymphoma CD30+ (positive), kidney cancer Dermatologic History: Reports: None - Infectious Disease History Infectious Disease History: Reports: None - Past Surgical History Head Surgeries/Procedures: Reports: None HEENT Surgical History: Reports: None Cardiovascular Surgical History: Reports: None Respiratory Surgical History: Reports: None GI Surgical History: Reports: None Male Surgical History: Reports: None Endocrine Surgical History: Reports: None Neurological Surgical History: Reports: None Musculoskeletal Surgical History: Reports: Arthroscopic Knee, ORIF Other Musculoskeletal Surgeries/Procedures:: ORIF left ring finger with pin removal Oncologic Surgical History: Reports: None Dermatological Surgical History: Reports: None - SUBSTANCE USE Smoking Status *Q: Never Smoker Recreational Drug Use History: No - HOME MEDS Home Medications: Home Meds Losartan Potassium 50 tab PO DAILY 03/14/16 [History] amLODIPine [Norvasc] 5 mg PO DAILY 03/14/16 [History] Finasteride 5 mg PO DAILY 06/15/17 [History] Morphine 15 mg PO Q4H PRN 02/17/19 [History] Albuterol Sulfate [Albuterol Sulfate Hfa] 2 puff INH ASDIRECTED PRN 02/24/19 [ History] Amoxicillin/Potassium Clav [Amox-Clav 875-125 mg Tablet] 1 tab PO BID 02/24/19 [ History] fentaNYL [Fentanyl] 1 patch TRDERM ASDIRECTED 02/24/19 [History] - CURRENT (IN HOUSE) MEDS Current Meds: Current Medications Lactated Ringer's (Ringers, Lactated) 1,000 mls @ 125 mls/hr IV ASDIRECTED SMITH Last Admin: 02/25/19 06:59 Dose: 125 mls/hr Sodium Chloride (Saline Flush) 10 ml FLUSH ASDIRECTED PRN PRN Reason: Keep Vein Open Sodium Chloride (Saline Flush) 2.5 ml FLUSH ASDIRECTED PRN PRN Reason: Keep Vein Open Sodium Chloride (Normal Saline) 10 ml IV ASDIRECTED PRN PRN Reason: IV Use Discontinued Medications Bupivacaine HCl (Sensorcaine-Mpf 0.5%) Confirm Administered Dose 10 ml .ROUTE .STK-MED ONE Stop: 02/25/19 07:19 Fentanyl (Sublimaze) Confirm Administered Dose 100 mcg .ROUTE .STK-MED ONE Stop: 02/25/19 07:13 Heparin Sodium (Porcine) (Heparin Lock Flush 100 Units/Ml) Confirm Administered Dose 600 unit .ROUTE .STK-MED ONE Stop: 02/25/19 07:20 Cefazolin Sodium/Dextrose 2 gm (/ Premix) 50 mls @ 100 mls/hr IV ONETIME ONE Stop: 02/24/19 12:18 Iopamidol (Isovue-200 (41%)) Confirm Administered Dose 50 ml .ROUTE .STK-MED ONE Stop: 02/25/19 07:20 Lidocaine (Xylocaine-Mpf 2%) Confirm Administered Dose 5 ml .ROUTE .STK-MED ONE Stop: 02/25/19 07:13 Lidocaine HCl (Xylocaine 1%) Confirm Administered Dose 20 ml .ROUTE .STK-MED ONE Stop: 02/25/19 07:20 Midazolam HCl (Versed 1 Mg/Ml) Confirm Administered Dose 2 mg .ROUTE .STK-MED ONE Stop: 02/25/19 07:13 Octyl Cyanoacrylate (Dermabond Advance) Confirm Administered Dose 1 applic .ROUTE .STK-MED ONE Stop: 02/25/19 07:20 Propofol (Diprivan 20 Ml) Confirm Administered Dose 400 mg .ROUTE .STK-MED ONE Stop: 02/25/19 07:13
[2019-02-25] MEDS ORDERED: Sodium Chloride 0.9% 20 ML ONE (08:11)
[2019-02-25] MEDS ORDERED: ceFAZolin 1 GM Vial ONE (08:11)
[2019-02-25] MEDS ORDERED: ePHEDrine 50 MG/ML SDV ONE (08:18)
[2019-02-25] MEDS ORDERED: Phenylephrine/Normal Saline 100 MCG/ML 10 ML Syringe ONE (08:26)
--- NOTE | 2019-02-25 09:20 | PCM.OPNOTE ---
- General Post-Op/Procedure Note Date of Surgery/Procedure: 02/25/19 Operative Procedure(s): Internal jugular port a cath placement Findings: Unable to place guidewire into SVC through left IJ approach. Switched to RIJ and placed with no issues. Pre Op Diagnosis: T cell lymphoma, renal cell carcinoma Post-Op Diagnosis: same Anesthesia Technique: General LMA Primary Surgeon: Rita Martinez Fluid Replacement, Intraop: 1,200 EBL in mLs: 10 Complications: Left carotid arterial puncture. Needle removed pressure held. No immediate complications Condition: Good
--- NOTE | 2019-02-25 09:48 | CR ---
HISTORY: Port placement. TECHNIQUE: One view of the chest. COMPARISON: 02/17/2019. FINDINGS: Right-sided Port-A-Cath with catheter terminating with mid SVC. No pneumothorax. No consolidation or pulmonary edema. Small area of linear atelectasis or scarring lateral to the left heart border as before. No moderate or large pleural effusion. Cardiac size within normal limits. IMPRESSION: 1. Right-sided Port-A-Cath with catheter terminating within the mid SVC. 2. No acute lung infiltrate or pneumothorax. Dictated by Nkio Bear MD @ 02/25/2019 9:48:07 AM Dictated by: Niko Bear MD @ 02/25/2019 09:48:12 (Electronically Signed)
--- NOTE | 2019-02-25 09:48 | PCM.POSTAN ---
POST ANESTHESIA ASSESSMENT - MENTAL STATUS Mental Status: Alert, Oriented - VITAL SIGNS Vital Signs: Last Vital Signs Temp 99.1 F 02/25/19 09:05 Pulse 90 02/25/19 09:35 Resp 18 02/25/19 09:35 BP 105/63 02/25/19 09:35 Pulse Ox 93 L 02/25/19 09:35 - RESPIRATORY Respiratory Status: Respiratory Rate WNL, Airway Patent, O2 Saturation Stable - CARDIOVASCULAR CV Status: Pulse Rate WNL, Blood Pressure Stable - GASTROINTESTINAL GI Status: No Symptoms - POST OP HYDRATION Hydration Status: Adequate & Stable
[2019-02-25 10:35] VITALS: BP 116/74; PULSE 90
--- NOTE | 2019-02-25 14:05 | OR ---
SURGEON: RITA MARTINEZ MD DATE OF PROCEDURE: 02/25/2019 PREOPERATIVE DIAGNOSES: Renal cell cancer, T-cell lymphoma. POSTOPERATIVE DIAGNOSES: Renal cell cancer, T-cell lymphoma. PROCEDURE PERFORMED: Right internal jugular Port-A-Cath placement. PRIMARY SURGEON: Rita Martinez MD. ANESTHESIA: General LMA. FLUIDS: 1200 mL of crystalloid. ESTIMATED BLOOD LOSS: 10 mL. FINDINGS: Unable to pass guidewire into the SVC through the left internal jugular vein, so Port-A-Cath placed to right internal jugular vein. COMPLICATIONS: Left carotid puncture. Immediately noticed. Needle removed and pressure held. No immediate complications. INDICATIONS: The patient is a 68-year-old male who presents with renal cell carcinoma as well as T-cell lymphoma. He will be undergoing chemotherapy and is in need of a Port- A-Cath placement. I explained the procedure; expected perioperative course; and the risks including bleeding, infection, or damage to surrounding structures. The patient verbalized understanding and wishes to proceed. PROCEDURE IN DETAIL: The patient was brought into the OR and placed on the OR table in supine position. A time-out was completed verifying the patient's name, age, date of , allergies, and procedure to be performed. General LMA anesthesia was induced. A pillow was placed under the patient's shoulders and the neck supported. Both arms were tucked to the patient's side. An ultrasound was brought in to visualize the anatomy of the left and right side of the neck. The left internal jugular vein was smaller than the right internal jugular vein. However, the patient was noted preoperatively to have a small right pleural effusion and so the decision was made to attempt placement on the left side. The neck and chest were prepped and draped in usual standard fashion. I identified the vascular anatomy of the neck on the left side using my ultrasound. 0.5% Marcaine plain and 1% lidocaine plain mixed in a 1:1 ratio were injected over the left internal jugular vein site. Using an ultrasound, I guided a needle into the left internal jugular vein and immediate return of venous blood was noted. I attempted to place a guidewire down into the vein, but met immediate resistance. The guidewire was removed and it was noted that I was no longer in the vein. I then used an ultrasound to visualize the needle right above the vein. Pressure was applied; however, I noticed an immediate return of pulsatile blood. The needle was removed and pressure was held on the left side of the neck for 2 minutes. After this, I re-examined the carotid artery along its length using the ultrasound. No large hematoma or abnormality was noted along the carotid artery. I made one last attempt at accessing the left internal jugular vein using the ultrasound. This time, I was able to get into the left internal jugular vein and placed a guidewire without difficulty. Fluoroscopy was brought in. At the entrance to the superior vena cava, the guidewire was coiled. Using fluoroscopy, I attempted to straighten this out, guide the wire into the SVC. Despite multiple attempts, I was unable to do so. The guidewire was removed and pressure held at the neck. The decision was made to attempt placement instead on the right side. I then moved over to the right side of the neck. I anesthetized the area overlying the right internal jugular vein. Using ultrasound guidance, I placed a guide needle into the right internal jugular vein. A return of venous blood was noted. The guidewire was placed through the needle and into the right internal jugular vein. The wire passed easily into the vena cava. Fluoroscopy verified this. I then turned my attention to the right upper chest wall. I anesthetized this area and the area of my catheter placement with the 1:1 lidocaine-Marcaine mixture. A 15 blade was used to make a 4 cm incision 2 fingerbreadths below the right lateral clavicle. Cautery was used to dissect down to the level of the chest wall and a subcutaneous pocket was made. A tunneling device was used to tunnel the catheter tubing from the chest wall site up to the guidewire site on the neck. Using a vascular dilator and sheath, I dilated the vascular tract under fluoroscopic guidance. The dilator and guidewire were removed and the catheter tubing was placed down the vascular sheath. The vascular sheath was pulled away. Fluoroscopy was then used to guide the catheter tubing into the SVC. I then aspirated at the end of my catheter tubing and a good return of venous blood was noted. The catheter tubing was then trimmed to fit and placed on the Port-A-Cath device. The port was placed in the subcutaneous chest wall pocket. I accessed the port and had a good return of venous blood. The device was then locked with heparinized saline, 3 mL of this was used. The port was then secured to the chest wall with interrupted 2-0 Prolene at the 3 o'clock, 6 o'clock, and 9 o'clock position. The subcutaneous fat layer was closed with interrupted 3-0 Vicryl sutures. The skin was closed with running 4-0 Monocryl stitch. The guidewire site at the right side of the neck was closed with an interrupted 4-0 Monocryl stitch. Dermabond and sterile dressings were applied. I applied a sterile dressing over the puncture site on the left side of the neck. The patient tolerated the procedure well and was taken to PACU in stable condition. All counts were complete and correct at the end of the case. During the case, the patient was in reverse Trendelenburg position. A chest x-ray was taken at the end of the case. There appears to be no evidence of a pneumothorax or hemothorax. RIKI FUENTES /[id number]
--- NOTE | 2019-02-25 16:37 | CR ---
Chest: Single fluoroscopic spot view of the upper chest was obtained. Study shows port placement. Tip lies within the expected region of the superior vena cava. Fluoroscopy time given as 203 seconds. Impression: Procedural study as noted above. Diagnostic code #2 MTDD
== END 2019-02-25 11:05 | disposition home or self-care (01) ==
LOC: MW.SDS 06:40
PROVIDERS: ATTEND Surgery
DX: C64.9 Malignant neoplasm of unspecified kidney, except renal pelvis (principal); C84.40 Peripheral T-cell lymphoma, not elsewhere classified, unspecified site; I10 Essential (primary) hypertension; N40.1 Benign prostatic hyperplasia with lower urinary tract symptoms; R35.1 Nocturia; M17.12 Unilateral primary osteoarthritis, left knee; E78.00 Pure hypercholesterolemia, unspecified; Z79.2 Long term (current) use of antibiotics; Z79.899 Other long term (current) drug therapy
CPT/HCPCS: 36415; 36561; 71045; 76000; 85025; A9270; J0690; J1642; J2001; J2250; J2370; J2704; J3010; J3490; J7120; Q9966

== ENCOUNTER 2019-03-09 22:44 | Inpatient (IN) | payer MEDICARE, OTHER ==
[2019-03-09] MEDS ORDERED: Sodium Chloride 0.9% 1,000 ML IV ONE (23:01)
--- NOTE | 2019-03-09 23:18 | EDM.PDOC ---
ED HPI GENERAL MEDICAL PROBLEM - General Chief Complaint: Fever Stated Complaint: FEVER Time Seen by Provider: 03/10/19 01:08 - History of Present Illness INITIAL COMMENTS - FREE TEXT/NARRATIVE: HISTORY AND PHYSICAL: History of present illness: Patient is a 5-year-old white male with history of T-cell lymphoma was currently undergoing chemotherapy and presents with concern of fever he's had some slight suprapubic discomfort and was concerned about possible urinary tract infection his temperature was as high as 101 yesterday this is insulin controlled with Tylenol he was 100.4 today there's been no cough shortness of breath vomiting he does have right-sided abdominal pain that is been stable and presumptively related to his lymphoma per patient. Review of systems: As per history of present illness and below otherwise all systems reviewed and negative. Past medical history: As per history of present illness and as reviewed below otherwise noncontributory. Surgical history: As per history of present illness and as reviewed below otherwise noncontributory. Social history: No reported history of drug or alcohol abuse. Family history: As per history of present illness and as reviewed below otherwise noncontributory. Physical exam: HEENT: Atraumatic, normocephalic, pupils reactive, negative for conjunctival pallor or scleral icterus, mucous membranes moist, throat clear, neck supple, nontender, trachea midline. Lungs: Clear to auscultation, breath sounds equal bilaterally, chest nontender. Heart: S1S2, regular, negative for clicks, rubs, or JVD. Abdomen: Soft, nondistended, nonlocalized right-sided tenderness. Negative for masses or hepatosplenomegaly. Negative for costovertebral tenderness. Pelvis: Stable nontender. Genitourinary: Deferred. Rectal: Deferred. Extremities: Atraumatic, negative for cords or calf pain. Neurovascular unremarkable. Neuro: Awake, alert, oriented. Cranial nerves II through XII unremarkable. Cerebellum unremarkable. Motor and sensory unremarkable throughout. Exam nonfocal. Diagnostics: CBC CMP chest x-ray blood culture 2 UA influenza screen lactic acid Therapeutics: Saline 1 L bolus Impression: #1 fever #2 history of T-cell lymphoma Definitive disposition and diagnosis as appropriate pending reevaluation and review of above. right flank Pain Score (Numeric/FACES): 3 - Related Data Allergies Allergy/AdvReac Type Severity Reaction Status Date / Time No Known Allergies Allergy Verified 02/25/19 07:18 Home Meds: Home Meds Losartan Potassium 50 tab PO DAILY 03/14/16 [History] amLODIPine [Norvasc] 5 mg PO DAILY 03/14/16 [History] Finasteride 5 mg PO DAILY 06/15/17 [History] Morphine 15 mg PO Q4H PRN 02/17/19 [History] fentaNYL [Fentanyl] 1 patch TRDERM ASDIRECTED 02/24/19 [History] Past Medical History HEENT History: Reports: Impaired Vision Other HEENT History: wears reading glasses Cardiovascular History: Reports: Arrhythmia, High Cholesterol, Hypertension Respiratory History: Reports: Other (See Below) Other Respiratory History: over 1 week ago was prescribed inhaler for cough and congestion, no problems now Gastrointestinal History: Reports: None Genitourinary History: Reports: Other (See Below) Other Genitourinary History: kidney cancer Musculoskeletal History: Reports: Fracture Neurological History: Reports: Vertigo Other Neuro History: hx of motion sickness, hx of vertigo Psychiatric History: Reports: None Endocrine/Metabolic History: Reports: None Hematologic History: Reports: None Immunologic History: Reports: None Oncologic (Cancer) History: Reports: Other (See Below) Other Oncologic History: T-cell lymphoma CD30+ (positive), kidney cancer Dermatologic History: Reports: None - Infectious Disease History Infectious Disease History: Reports: Chicken Pox, MRSA, Mumps - Past Surgical History Head Surgeries/Procedures: Reports: None HEENT Surgical History: Reports: None Cardiovascular Surgical History: Reports: None Respiratory Surgical History: Reports: None GI Surgical History: Reports: None Male Surgical History: Reports: None Endocrine Surgical History: Reports: None Neurological Surgical History: Reports: None Musculoskeletal Surgical History: Reports: Arthroscopic Knee, ORIF Other Musculoskeletal Surgeries/Procedures:: ORIF left ring finger with pin removal Oncologic Surgical History: Reports: None Dermatological Surgical History: Reports: None Social & Family History - Family History Family Medical History: Noncontributory - Tobacco Use Smoking Status *Q: Never Smoker - Caffeine Use Caffeine Use: Reports: Coffee - Recreational Drug Use Recreational Drug Use: No ED ROS GENERAL - Review of Systems Review Of Systems: Comprehensive ROS is negative, except as noted in HPI. ED EXAM, GENERAL - Physical Exam Exam: See Below (See dictation) Course - Vital Signs Last Recorded V/S: Last Vital Signs Temp 37.4 C 03/10/19 00:28 Pulse 91 03/10/19 00:28 Resp 16 03/10/19 00:28 BP 145/75 H 03/10/19 00:28 Pulse Ox 96 03/10/19 00:28 - Orders/Labs/Meds Orders: Active Orders 24 hr Category Date Time Status CULTURE BLOOD [BC] Stat Lab 03/09/19 23:38 Received CULTURE BLOOD [BC] Stat Lab 03/09/19 23:53 Received Cefepime [Maxipime in D5W 2 GM/50 ML] 2 gm Med 03/10/19 01:05 Active Premix Bag 1 bag IV ONETIME Blood Culture x2 Reflex Set [OM.PC] Stat Oth 03/09/19 23:01 Ordered Medication Orders Cefepime HCl 2 gm/ Premix 50 mls @ 100 mls/hr IV ONETIME ONE Stop: 03/10/19 01:34 Labs: Laboratory Tests 03/09/19 03/09/19 03/09/19 Range/Units 23:38 23:38 23:38 WBC 0.68 L (4.0-11.0) K/uL RBC 3.41 L (4.50-5.90) M/uL Hgb 8.9 L (13.0-17.0) g/dL Hct 26.9 L (38.0-50.0) % MCV 78.9 L (80.0-98.0) fL MCH 26.1 L (27.0-32.0) pg MCHC 33.1 (31.0-37.0) g/dL RDW Std Deviation 42.3 (28.0-62.0) fl RDW Coeff of Harika 15 (11.0-15.0) % Plt Count 118 L (150-400) K/uL MPV 8.80 (7.40-12.00) fL Add Manual Diff YES Neutrophils % (Manual) 33 L (48.0-80.0) % Band Neutrophils % 23 % Lymphocytes % (Manual) 31 (16.0-40.0) % Monocytes % (Manual) 8 (0.0-15.0) % Basophils % (Manual) 4 H (0.0-1.5) % Myelocytes % 1 % Nucleated RBC % 0.0 /100WBC Absolute Seg Neuts 0.2 L (1.4-5.7) Band Neutrophils # 0.2 Lymphocytes # (Manual) 0.2 L (0.6-2.4) Monocytes # (Manual) 0.1 (0.0-0.8) Basophils # (Manual) 0.0 (0.0-0.1) Absolute Myelocytes 0 Nucleated RBCs # 0 K/uL Lactate 2.2 H* (0.20-2.00) mmol/L Sodium 135 L (136-148) mmol/L Potassium 3.5 (3.5-5.1) mmol/L Chloride 101 (98-107) mmol/L Carbon Dioxide 26.2 (21.0-32.0) mmol/L BUN 15 (7.0-18.0) mg/dL Creatinine 1.0 (0.8-1.3) mg/dL Est Cr Clr Drug Dosing 68.74 mL/min Estimated GFR (MDRD) > 60.0 ml/min Glucose 160 H (74-106) mg/dL Calcium 8.6 (8.5-10.1) mg/dL Total Bilirubin 0.5 (0.2-1.0) mg/dL AST 23 (15-37) IU/L ALT 58 (14-63) IU/L Alkaline Phosphatase 70 (46-116) U/L Total Protein 6.0 L (6.4-8.2) g/dL Albumin 2.8 L (3.4-5.0) g/dL Globulin 3.2 (2.6-4.0) g/dL Albumin/Globulin Ratio 0.9 (0.9-1.6) Urine Color Urine Appearance Urine pH (5.0-8.0) Ur Specific Maybeury (1.001-1.035) Urine Protein (NEGATIVE) mg/dL Urine Glucose (UA) (NEGATIVE) mg/dL Urine Ketones (NEGATIVE) mg/dL Urine Occult Blood (NEGATIVE) Urine Nitrite (NEGATIVE) Urine Bilirubin (NEGATIVE) Urine Urobilinogen (<2.0) EU/dL Ur Leukocyte Esterase (NEGATIVE) Urine RBC (0-2/HPF) Urine WBC (0-5/HPF) Ur Epithelial Cells (NONE-FEW) Amorphous Sediment (NEGATIVE) Urine Bacteria (NEGATIVE) 03/10/19 Range/Units 00:25 WBC (4.0-11.0) K/uL RBC (4.50-5.90) M/uL Hgb (13.0-17.0) g/dL Hct (38.0-50.0) % MCV (80.0-98.0) fL MCH (27.0-32.0) pg MCHC (31.0-37.0) g/dL RDW Std Deviation (28.0-62.0) fl RDW Coeff of Harika (11.0-15.0) % Plt Count (150-400) K/uL MPV (7.40-12.00) fL Add Manual Diff Neutrophils % (Manual) (48.0-80.0) % Band Neutrophils % % Lymphocytes % (Manual) (16.0-40.0) % Monocytes % (Manual) (0.0-15.0) % Basophils % (Manual) (0.0-1.5) % Myelocytes % % Nucleated RBC % /100WBC Absolute Seg Neuts (1.4-5.7) Band Neutrophils # Lymphocytes # (Manual) (0.6-2.4) Monocytes # (Manual) (0.0-0.8) Basophils # (Manual) (0.0-0.1) Absolute Myelocytes Nucleated RBCs # K/uL Lactate (0.20-2.00) mmol/L Sodium (136-148) mmol/L Potassium (3.5-5.1) mmol/L Chloride (98-107) mmol/L Carbon Dioxide (21.0-32.0) mmol/L BUN (7.0-18.0) mg/dL Creatinine (0.8-1.3) mg/dL Est Cr Clr Drug Dosing mL/min Estimated GFR (MDRD) ml/min Glucose (74-106) mg/dL Calcium (8.5-10.1) mg/dL Total Bilirubin (0.2-1.0) mg/dL AST (15-37) IU/L ALT (14-63) IU/L Alkaline Phosphatase (46-116) U/L Total Protein (6.4-8.2) g/dL Albumin (3.4-5.0) g/dL Globulin (2.6-4.0) g/dL Albumin/Globulin Ratio (0.9-1.6) Urine Color YELLOW Urine Appearance CLEAR Urine pH 6.5 (5.0-8.0) Ur Specific Maybeury 1.015 (1.001-1.035) Urine Protein TRACE H (NEGATIVE) mg/dL Urine Glucose (UA) NEGATIVE (NEGATIVE) mg/dL Urine Ketones NEGATIVE (NEGATIVE) mg/dL Urine Occult Blood NEGATIVE (NEGATIVE) Urine Nitrite NEGATIVE (NEGATIVE) Urine Bilirubin NEGATIVE (NEGATIVE) Urine Urobilinogen 0.2 (<2.0) EU/dL Ur Leukocyte Esterase NEGATIVE (NEGATIVE) Urine RBC 0-1 (0-2/HPF) Urine WBC 0-1 (0-5/HPF) Ur Epithelial Cells RARE (NONE-FEW) Amorphous Sediment LIGHT (NEGATIVE) Urine Bacteria RARE (NEGATIVE) Meds: Medications Generic Name Dose Route Start Last Admin Trade Name Freq PRN Reason Stop Dose Admin Cefepime HCl 2 gm/ Premix 50 mls @ 100 mls/hr 03/10/19 01:05 IV 03/10/19 01:34 ONETIME ONE Discontinued Medications Generic Name Dose Route Start Last Admin Trade Name Freq PRN Reason Stop Dose Admin Sodium Chloride 1,000 mls @ 999 mls/hr 03/09/19 23:01 03/09/19 23:38 Normal Saline IV 03/10/19 00:01 999 mls/hr .Bolus ONE Administration Departure - Departure Time of Disposition: 01:09 Disposition: Admitted As Inpatient 64 Condition: Good Clinical Impression: Fever and neutropenia, Lymphoma - Discharge Information Referrals: PCP,None [Primary Care Provider] - Forms: ED Department Discharge - My Orders Last 24 Hours: My Active Orders 03/09/19 23:01 Blood Culture x2 Reflex Set [OM.PC] Stat 03/09/19 23:38 CULTURE BLOOD [BC] Stat 03/09/19 23:53 CULTURE BLOOD [BC] Stat 03/10/19 01:05 Cefepime [Maxipime in D5W 2 GM/50 ML] 2 gm Premix Bag 1 bag IV ONETIME - Assessment/Plan Last 24 Hours: My Active Orders 03/09/19 23:01 Blood Culture x2 Reflex Set [OM.PC] Stat 03/09/19 23:38 CULTURE BLOOD [BC] Stat 03/09/19 23:53 CULTURE BLOOD [BC] Stat 03/10/19 01:05 Cefepime [Maxipime in D5W 2 GM/50 ML] 2 gm Premix Bag 1 bag IV ONETIME
--- NOTE | 2019-03-09 23:30 | CR ---
INDICATION: Fever TECHNIQUE: Frontal view of the chest. COMPARISON: Single view chest 02/25/2019 FINDINGS/IMPRESSION: The lungs are clear. There is no sizable pleural effusion or pneumothorax. The cardiomediastinal silhouette is normal. Infusion port is noted in the right chest wall with catheter tip in the SVC. The visualized osseous structures are unremarkable. Dictated by Cici Mendes MD @ Mar 09 2019 11:27PM Signed by Dr. Cici Mendes @ Mar 09 2019 11:28PM
[2019-03-10 00:15] LABS: BLOOD UREA NITROGEN,BUN 15 mg/dL (7.0-18.0); CARBON DIOXIDE,CO2 26.2 mmol/L (21.0-32.0); CHLORIDE,CL 101 mmol/L (98-107); GLUCOSE RANDOM 160 mg/dL (74-106); POTASSIUM,K 3.5 mmol/L (3.5-5.1); SODIUM,NA 135 mmol/L (136-148)
[2019-03-10] MEDS ORDERED: Cefepime 2 GM in Premix Bag 1 BAG IV ONE (01:05)
[2019-03-10] MEDS ORDERED: Cefepime 2 GM in Premix Bag 1 BAG IV SCH (03:00)
[2019-03-10] MEDS: Sodium Chloride 0.9% 1,000 ML IV SCH ×3 (03:41→22:33)
[2019-03-10] MEDS ORDERED: Ondansetron 4 MG Tab.DIS PO PRN (08:35)
[2019-03-10] MEDS ORDERED: Acetaminophen 325 MG Tab PO PRN (08:35)
[2019-03-10] MEDS ORDERED: Ondansetron 4 MG/2 ML SDV IVPUSH PRN (08:35)
[2019-03-10] MEDS ORDERED: Morphine 10 MG/ML Syringe IVPUSH PRN (08:35)
[2019-03-10] MEDS ORDERED: Non-Formulary Medication 1 Each (Fentanyl [Fentanyl] 1 PATCH) TRDERM SCH (08:45)
[2019-03-10] MEDS: amLODIPine 5 MG Tab PO SCH (09:14)
[2019-03-10] MEDS: Losartan 50 MG Tab PO SCH (09:14)
[2019-03-10] MEDS: Finasteride 5 MG Tab PO SCH (09:15)
[2019-03-10] MEDS: Cefepime 2 GM in Premix Bag 1 BAG IV SCH ×2 (09:16→17:14)
--- NOTE | 2019-03-10 09:16 | PCM.HP.2 ---
H&P History of Present Illness - General Date of Service: 03/10/19 Admit Problem/Dx: Admission Diagnosis/Problem Admission Diagnosis/Problem Neutropenia Source of Information: Patient History Limitations: Reports: No Limitations - History of Present Illness Initial Comments - Free Text/Narative: 68-year-old male admitted for neutropenic fever. He has a history of renal cell carcinoma and T-cell lymphoma. Patient notes that he has had a low-grade fever for the past 2 days and then when his fever hit 100.4 F he decided to come to the ER. He reports having increased phlegm production felt in the back of his throat but has not had a cough. He reports having a mild headache and has right- sided flank and abdominal pain which he states is chronic for him. He also reports some lower abdomen pressure discomfort. He denies any blurry vision, dental pain, nausea, vomiting, shortness of breath, chest pain, skin rashes, diarrhea or pain when urinating. He has received 2 rounds of chemotherapy which are 3 weeks apart. He follows-up with oncologist through the [facility] and reports that he will be going to [place] in March for follow-up appointment. In the ER, patient was afebrile and received 1 L fluid bolus, blood cultures obtained, UA was negative, influenza test negative and CXR was negative. WBC count was 0.68. Lactate level was initially 2.2 but then 0.9 on repeat after IV fluids. Patient was started on cefepime and admitted for further evaluation. right flank Pain Score (Numeric/FACES): 3 - Related Data Allergies/Adverse Reactions: Allergies Allergy/AdvReac Type Severity Reaction Status Date / Time No Known Allergies Allergy Verified 03/10/19 02:20 Home Medications: Home Meds Losartan Potassium 50 tab PO DAILY 03/14/16 [History] amLODIPine [Norvasc] 5 mg PO DAILY 03/14/16 [History] Finasteride 5 mg PO DAILY 06/15/17 [History] Morphine 15 mg PO Q4H PRN 02/17/19 [History] fentaNYL [Fentanyl] 12 mcg TRDERM Q72H MDD 37.5 mcg/hr 02/24/19 [History] fentaNYL [Duragesic] 25 mcg TD Q72H MDD 37.5mcg/hr 03/10/19 [History] Past Medical History HEENT History: Reports: Impaired Vision Other HEENT History: wears reading glasses Cardiovascular History: Reports: Arrhythmia, High Cholesterol, Hypertension Respiratory History: Reports: Other (See Below) Other Respiratory History: over 1 week ago was prescribed inhaler for cough and congestion, no problems now Gastrointestinal History: Reports: None Genitourinary History: Reports: Other (See Below) Other Genitourinary History: kidney cancer Musculoskeletal History: Reports: Fracture Neurological History: Reports: Vertigo Other Neuro History: hx of motion sickness, hx of vertigo Psychiatric History: Reports: None Endocrine/Metabolic History: Reports: None Hematologic History: Reports: None Immunologic History: Reports: None Oncologic (Cancer) History: Reports: Other (See Below) Other Oncologic History: T-cell lymphoma CD30+ (positive), kidney cancer. chemo last -9 days ago, next apt in [place] 03/21 Dermatologic History: Reports: None - Infectious Disease History Infectious Disease History: Reports: Chicken Pox, MRSA, Mumps - Past Surgical History Head Surgeries/Procedures: Reports: None HEENT Surgical History: Reports: None Cardiovascular Surgical History: Reports: None Respiratory Surgical History: Reports: None GI Surgical History: Reports: None Male Surgical History: Reports: None Endocrine Surgical History: Reports: None Neurological Surgical History: Reports: None Musculoskeletal Surgical History: Reports: Arthroscopic Knee, ORIF Other Musculoskeletal Surgeries/Procedures:: ORIF left ring finger with pin removal Oncologic Surgical History: Reports: None Dermatological Surgical History: Reports: None Social & Family History - Family History Family Medical History: Noncontributory - Tobacco Use Smoking Status *Q: Never Smoker Second Hand Smoke Exposure: No - Caffeine Use Caffeine Use: Reports: Coffee - Recreational Drug Use Recreational Drug Use: No H&P Review of Systems - Review of Systems: Review Of Systems: Comprehensive ROS is negative, except as noted in HPI. Exam - Exam Exam: See Below - Vital Signs Vital Signs: Last Vital Signs Temp 97.9 F 03/10/19 07:05 Pulse 79 03/10/19 07:05 Resp 16 03/10/19 07:05 BP 137/77 03/10/19 09:14 Pulse Ox 95 03/10/19 07:05 Weight: 174 lb 13.225 oz - Exam General: Alert, Oriented, Cooperative, Other (NAD) HEENT: Conjunctiva Clear, EOMI, Hearing Intact, Mucosa Moist & [place], Posterior Pharynx Clear Neck: Supple, Trachea Midline Lungs: Clear to Auscultation, Normal Respiratory Effort Cardiovascular: Regular Rate, Regular Rhythm GI/Abdominal Exam: Normal Bowel Sounds, Soft, Distended, Other (tender to palpation on right side of abdomen and right flank) Extremities: Normal Inspection, No Pedal Edema Skin: Warm, Dry, Intact, Other (port on right side of chest). No: Rash Neurological: Cranial Nerves Intact, Strength Equal Bilateral, Normal Speech, Normal Tone Neuro Extensive - Motor, Sensory, Reflexes: CN II-XII Intact Psychiatric: Alert, Normal Affect, Normal Mood - Patient Data Lab Results Last 24 hrs: Laboratory Results - last 24 hr 03/09/19 03/09/19 03/09/19 Range/Units 23:38 23:38 23:38 WBC 0.68 L (4.0-11.0) K/uL RBC 3.41 L (4.50-5.90) M/uL Hgb 8.9 L (13.0-17.0) g/dL Hct 26.9 L (38.0-50.0) % MCV 78.9 L (80.0-98.0) fL MCH 26.1 L (27.0-32.0) pg MCHC 33.1 (31.0-37.0) g/dL RDW Std Deviation 42.3 (28.0-62.0) fl RDW Coeff of Harika 15 (11.0-15.0) % Plt Count 118 L (150-400) K/uL MPV 8.80 (7.40-12.00) fL Add Manual Diff YES Neutrophils % (Manual) 33 L (48.0-80.0) % Band Neutrophils % 23 % Lymphocytes % (Manual) 31 (16.0-40.0) % Monocytes % (Manual) 8 (0.0-15.0) % Basophils % (Manual) 4 H (0.0-1.5) % Myelocytes % 1 % Nucleated RBC % 0.0 /100WBC Absolute Seg Neuts 0.2 L (1.4-5.7) Band Neutrophils # 0.2 Lymphocytes # (Manual) 0.2 L (0.6-2.4) Monocytes # (Manual) 0.1 (0.0-0.8) Basophils # (Manual) 0.0 (0.0-0.1) Absolute Myelocytes 0 Nucleated RBCs # 0 K/uL Lactate 2.2 H* (0.20-2.00) mmol/L Sodium 135 L (136-148) mmol/L Potassium 3.5 (3.5-5.1) mmol/L Chloride 101 (98-107) mmol/L Carbon Dioxide 26.2 (21.0-32.0) mmol/L BUN 15 (7.0-18.0) mg/dL Creatinine 1.0 (0.8-1.3) mg/dL Est Cr Clr Drug Dosing 68.74 mL/min Estimated GFR (MDRD) > 60.0 ml/min Glucose 160 H (74-106) mg/dL Calcium 8.6 (8.5-10.1) mg/dL Total Bilirubin 0.5 (0.2-1.0) mg/dL AST 23 (15-37) IU/L ALT 58 (14-63) IU/L Alkaline Phosphatase 70 (46-116) U/L Total Protein 6.0 L (6.4-8.2) g/dL Albumin 2.8 L (3.4-5.0) g/dL Globulin 3.2 (2.6-4.0) g/dL Albumin/Globulin Ratio 0.9 (0.9-1.6) Urine Color Urine Appearance Urine pH (5.0-8.0) Ur Specific [place] (1.001-1.035) Urine Protein (NEGATIVE) mg/dL Urine Glucose (UA) (NEGATIVE) mg/dL Urine Ketones (NEGATIVE) mg/dL Urine Occult Blood (NEGATIVE) Urine Nitrite (NEGATIVE) Urine Bilirubin (NEGATIVE) Urine Urobilinogen (<2.0) EU/dL Ur Leukocyte Esterase (NEGATIVE) Urine RBC (0-2/HPF) Urine WBC (0-5/HPF) Ur Epithelial Cells (NONE-FEW) Amorphous Sediment (NEGATIVE) Urine Bacteria (NEGATIVE) 03/10/19 03/10/19 Range/Units 00:25 04:43 WBC (4.0-11.0) K/uL RBC (4.50-5.90) M/uL Hgb (13.0-17.0) g/dL Hct (38.0-50.0) % MCV (80.0-98.0) fL MCH (27.0-32.0) pg MCHC (31.0-37.0) g/dL RDW Std Deviation (28.0-62.0) fl RDW Coeff of Harika (11.0-15.0) % Plt Count (150-400) K/uL MPV (7.40-12.00) fL Add Manual Diff Neutrophils % (Manual) (48.0-80.0) % Band Neutrophils % % Lymphocytes % (Manual) (16.0-40.0) % Monocytes % (Manual) (0.0-15.0) % Basophils % (Manual) (0.0-1.5) % Myelocytes % % Nucleated RBC % /100WBC Absolute Seg Neuts (1.4-5.7) Band Neutrophils # Lymphocytes # (Manual) (0.6-2.4) Monocytes # (Manual) (0.0-0.8) Basophils # (Manual) (0.0-0.1) Absolute Myelocytes Nucleated RBCs # K/uL Lactate 0.9 (0.20-2.00) mmol/L Sodium (136-148) mmol/L Potassium (3.5-5.1) mmol/L Chloride (98-107) mmol/L Carbon Dioxide (21.0-32.0) mmol/L BUN (7.0-18.0) mg/dL Creatinine (0.8-1.3) mg/dL Est Cr Clr Drug Dosing mL/min Estimated GFR (MDRD) ml/min Glucose (74-106) mg/dL Calcium (8.5-10.1) mg/dL Total Bilirubin (0.2-1.0) mg/dL AST (15-37) IU/L ALT (14-63) IU/L Alkaline Phosphatase (46-116) U/L Total Protein (6.4-8.2) g/dL Albumin (3.4-5.0) g/dL Globulin (2.6-4.0) g/dL Albumin/Globulin Ratio (0.9-1.6) Urine Color YELLOW Urine Appearance CLEAR Urine pH 6.5 (5.0-8.0) Ur Specific [place] 1.015 (1.001-1.035) Urine Protein TRACE H (NEGATIVE) mg/dL Urine Glucose (UA) NEGATIVE (NEGATIVE) mg/dL Urine Ketones NEGATIVE (NEGATIVE) mg/dL Urine Occult Blood NEGATIVE (NEGATIVE) Urine Nitrite NEGATIVE (NEGATIVE) Urine Bilirubin NEGATIVE (NEGATIVE) Urine Urobilinogen 0.2 (<2.0) EU/dL Ur Leukocyte Esterase NEGATIVE (NEGATIVE) Urine RBC 0-1 (0-2/HPF) Urine WBC 0-1 (0-5/HPF) Ur Epithelial Cells RARE (NONE-FEW) Amorphous Sediment LIGHT (NEGATIVE) Urine Bacteria RARE (NEGATIVE) Result Diagrams: 03/09/19 23:38 03/09/19 23:38 Darryn Results Last 24 hrs: Microbiology 03/09/19 23:39 Influenza Type A Antigen Screen - Final Nasopharyngeal Swab NEGATIVE INFLUENZA A VIRUS AG REFERENCE RANGE: NEGATIVE Influenza Type B Antigen Screen - Final NEGATIVE INFLUENZA B VIRUS AG REFERENCE RANGE: NEGATIVE Problem List Initiated/Reviewed/Updated: Yes Orders Last 24hrs: Active Orders 24 hr Category Date Time Status Patient Status [ADT] Stat ADT 03/10/19 01:10 Active Antiembolic Devices [RC] PER UNIT ROUTINE Care 03/10/19 08:36 Active Oxygen Therapy [RC] PRN Care 03/10/19 08:35 Active Up ad Maria Isabel [RC] ASDIRECTED Care 03/10/19 08:35 Active VTE/DVT Education [RC] PER UNIT ROUTINE Care 03/10/19 08:35 Active Vital Signs [RC] Q4H Care 03/10/19 08:35 Active Neutropenic [DIET] Diet 03/10/19 Breakfast Active CULTURE BLOOD [BC] Stat Lab 03/09/19 23:38 Received CULTURE BLOOD [BC] Stat Lab 03/09/19 23:53 Received CULTURE URINE [RM] Stat Lab 03/10/19 00:25 Received Cefepime [Maxipime in D5W 2 GM/50 ML] 2 gm Med 03/10/19 09:00 Active Premix Bag 1 bag IV Q8H Finasteride [Proscar] Med 03/10/19 09:00 Active 5 mg PO DAILY Losartan [Cozaar] Med 03/10/19 09:00 Active 50 mg PO DAILY Morphine Med 03/10/19 08:37 Active 15 mg PO Q4H PRN Ondansetron [Zofran ODT] Med 03/10/19 08:35 Active 4 mg PO Q4H PRN Ondansetron [Zofran] Med 03/10/19 08:35 Active 4 mg IVPUSH Q4H PRN Sodium Chloride 0.9% [Normal Saline] 1,000 ml Med 03/10/19 03:30 Active IV ASDIRECTED amLODIPine [Norvasc] Med 03/10/19 09:00 Active 5 mg PO DAILY fentaNYL [Fentanyl] Med 03/10/19 08:45 Pending 1 patch TRDERM ASDIRECTED Blood Culture x2 Reflex Set [OM.PC] Stat Ot 03/09/19 23:01 Ordered Sequential Compression Device [OM.PC] Per Unit Routine Oth 03/10/19 08:35 Ordered Resuscitation Status Routine Resus Stat 03/10/19 08:35 Ordered Medication Orders Amlodipine Besylate (Norvasc) 5 mg PO DAILY [facility] Last Admin: 03/10/19 09:14 Dose: 5 mg Finasteride (Proscar) 5 mg PO DAILY [facility] Last Admin: 03/10/19 09:15 Dose: 5 mg Cefepime HCl 2 gm/ Premix 50 mls @ 100 mls/hr IV Q8H [facility] Sodium Chloride (Normal Saline) 1,000 mls @ 125 mls/hr IV ASDIRECTED [facility] Last Admin: 03/10/19 03:41 Dose: 125 mls/hr Losartan Potassium (Cozaar) 50 mg PO DAILY [facility] Last Admin: 03/10/19 09:14 Dose: 50 mg Morphine Sulfate (Morphine) 15 mg PO Q4H PRN PRN Reason: Pain Non-Formulary Medication (Fentanyl [Fentanyl]) 1 patch TRDERM ASDIRECTED [facility] Ondansetron HCl (Zofran) 4 mg IVPUSH Q4H PRN PRN Reason: Nausea Ondansetron HCl (Zofran Odt) 4 mg PO Q4H PRN PRN Reason: nausea, able to take PO Assessment/Plan Comment:: Assessment: 1. Neutropenic Fever in the setting of #2 and #3. 2. T-cell lymphoma. 3. Renal cell carcinoma. 4. Pancytopenia. 5. Past medical history of HTN. Plan: 1. For neutropenic fever, will continue to monitor patient's vital signs and temperature. Will continue cefepime. Daily CBC and BMP. UA was negative. CXR was negative. Blood cultures pending. Patient did receive Neulasta on 03/01/19. IV fluids 125 cc/hr. 2. For PMH will continue with home medications.
[2019-03-10] MEDS: Heparin Sodium 5,000 Units/ML Vial SUBCUT SCH ×2 (14:49→23:54)
[2019-03-11] MEDS: Heparin Sodium 5,000 Units/ML Vial SUBCUT SCH ×3 (06:27→21:47)
[2019-03-11 06:33] LABS: BLOOD UREA NITROGEN,BUN 11 mg/dL (7.0-18.0); CARBON DIOXIDE,CO2 22.9 mmol/L (21.0-32.0); CHLORIDE,CL 102 mmol/L (98-107); GLUCOSE RANDOM 99 mg/dL (74-106); POTASSIUM,K 3.6 mmol/L (3.5-5.1); SODIUM,NA 135 mmol/L (136-148)
[2019-03-11] MEDS: amLODIPine 5 MG Tab PO SCH (08:36)
[2019-03-11] MEDS: Finasteride 5 MG Tab PO SCH (08:36)
[2019-03-11] MEDS: Losartan 50 MG Tab PO SCH (08:36)
[2019-03-11] MEDS: Cefepime 2 GM in Premix Bag 1 BAG IV SCH ×4 (08:48→16:21)
[2019-03-11] MEDS: Morphine 15 MG Tab PO PRN ×2 (08:53→20:12)
--- NOTE | 2019-03-11 15:16 | PCM.PN ---
- General Info Date of Service: 03/11/19 Subjective Update: Patient reports not sleeping well overnight due to difficulty with IV line. He has been afebrile, denies productive cough, shortness of breath or pain. Tolerating oral diet well. Has has bowel movement. - Patient Data Vitals - Most Recent: Last Vital Signs Temp 98.8 F 03/11/19 12:00 Pulse 91 03/11/19 12:00 Resp 20 03/11/19 12:00 BP 125/62 03/11/19 12:00 Pulse Ox 95 03/11/19 12:00 Weight - Most Recent: 174 lb 2.643 oz I&O - Last 24 Hours: Intake & Output 03/11/19 03/11/19 03/11/19 06:59 14:59 22:59 Intake Total 540 50 Balance 540 50 Lab Results Last 24 Hours: Laboratory Results - last 24 hr 03/11/19 03/11/19 Range/Units 05:32 05:32 WBC 1.83 L (4.0-11.0) K/uL RBC 3.35 L (4.50-5.90) M/uL Hgb 8.7 L (13.0-17.0) g/dL Hct 26.4 L (38.0-50.0) % MCV 78.8 L (80.0-98.0) fL MCH 26.0 L (27.0-32.0) pg MCHC 33.0 (31.0-37.0) g/dL RDW Std Deviation 42.6 (28.0-62.0) fl RDW Coeff of Harika 15 (11.0-15.0) % Plt Count 114 L (150-400) K/uL MPV 8.80 (7.40-12.00) fL Add Manual Diff YES Neutrophils % (Manual) 61 (48.0-80.0) % Band Neutrophils % 5 % Lymphocytes % (Manual) 22 (16.0-40.0) % Monocytes % (Manual) 10 (0.0-15.0) % Eosinophils % (Manual) 1 (0.0-7.0) % Basophils % (Manual) 1 (0.0-1.5) % Nucleated RBC % 0.0 /100WBC Absolute Seg Neuts 1.1 L (1.4-5.7) Band Neutrophils # 0.1 Lymphocytes # (Manual) 0.4 L (0.6-2.4) Monocytes # (Manual) 0.2 (0.0-0.8) Eosinophils # (Manual) 0.0 (0.0-0.7) Basophils # (Manual) 0.0 (0.0-0.1) Nucleated RBCs # 0 K/uL Sodium 135 L (136-148) mmol/L Potassium 3.6 (3.5-5.1) mmol/L Chloride 102 (98-107) mmol/L Carbon Dioxide 22.9 (21.0-32.0) mmol/L BUN 11 (7.0-18.0) mg/dL Creatinine 0.9 (0.8-1.3) mg/dL Est Cr Clr Drug Dosing 76.37 mL/min Estimated GFR (MDRD) > 60.0 ml/min Glucose 99 (74-106) mg/dL Calcium 8.5 (8.5-10.1) mg/dL Darryn Results Last 24 Hours: Microbiology 03/09/19 23:53 Aerobic Blood Culture - Preliminary Blood - Venous - Lab Draw NO GROWTH AFTER 1 DAY Anaerobic Blood Culture - Preliminary NO GROWTH AFTER 1 DAY 03/09/19 23:38 Aerobic Blood Culture - Preliminary Blood - Venous NO GROWTH AFTER 1 DAY Anaerobic Blood Culture - Preliminary NO GROWTH AFTER 1 DAY Med Orders - Current: Current Medications Amlodipine Besylate (Norvasc) 5 mg PO DAILY [facility] Last Admin: 03/11/19 08:36 Dose: 5 mg Fentanyl (Duragesic) 12 mcg TRDERM Q72H [facility] Fentanyl (Duragesic) 25 mcg TRDERM Q72H [facility] Finasteride (Proscar) 5 mg PO DAILY [facility] Last Admin: 03/11/19 08:36 Dose: 5 mg Heparin Sodium (Porcine) (Heparin Sodium) 5,000 units SUBCUT Q8H [facility] Last Admin: 03/11/19 13:09 Dose: 5,000 units Cefepime HCl 2 gm/ Premix 50 mls @ 100 mls/hr IV Q8H [facility] Last Admin: 03/11/19 08:48 Dose: 100 mls/hr Losartan Potassium (Cozaar) 50 mg PO DAILY [facility] Last Admin: 03/11/19 08:36 Dose: 50 mg Miscellaneous Information (Remove Patch) 1 ea TRDERM Q72H [facility] Morphine Sulfate (Morphine) 15 mg PO Q4H PRN PRN Reason: Pain Last Admin: 03/11/19 08:53 Dose: 15 mg Ondansetron HCl (Zofran) 4 mg IVPUSH Q4H PRN PRN Reason: Nausea Ondansetron HCl (Zofran Odt) 4 mg PO Q4H PRN PRN Reason: nausea, able to take PO Discontinued Medications Acetaminophen (Tylenol) 650 mg PO Q4H PRN PRN Reason: Pain (Mild 1-3)/fever Sodium Chloride (Normal Saline) 1,000 mls @ 999 mls/hr IV .Bolus ONE Stop: 03/10/19 00:01 Last Admin: 03/09/19 23:38 Dose: 999 mls/hr Cefepime HCl 2 gm/ Premix 50 mls @ 100 mls/hr IV ONETIME ONE Stop: 03/10/19 01:34 Last Admin: 03/10/19 01:27 Dose: 100 mls/hr Cefepime HCl 2 gm/ Premix 50 mls @ 100 mls/hr IV Q8H [facility] Sodium Chloride (Normal Saline) 1,000 mls @ 125 mls/hr IV ASDIRECTED [facility] Last Admin: 03/10/19 22:33 Dose: 125 mls/hr Morphine Sulfate (Morphine) 2 mg IVPUSH Q2H PRN PRN Reason: Pain (severe 7-10) Stop: 03/11/19 08:36 - Exam General: Alert, Oriented, Cooperative, No Acute Distress Lungs: Clear to Auscultation, Normal Respiratory Effort Cardiovascular: Regular Rate, Regular Rhythm Extremities: Normal Inspection, No Pedal Edema - Problem List Review Problem List Initiated/Reviewed/Updated: Yes - Plan Plan:: Assessment: 1. Neutropenic fever in the setting of #2 and #3. 2. T-cell lymphoma. 3. Renal cell carcinoma. 4. Pancytopenia. 5. Past medical history of HTN. Plan: 1. Will continue to monitor patient's vital signs for fever. He has been afebrile for past 24 hours. Continue cefepime. Blood cultures negative @ 24 hours. Discontinue IV fluids. 2. For PMH will continue with home medications. 3. DVT prophylaxis, heparin 5000 units subcut q8h.
[2019-03-12] MEDS: Cefepime 2 GM in Premix Bag 1 BAG IV SCH ×2 (00:26→08:39)
[2019-03-12] MEDS: Heparin Sodium 5,000 Units/ML Vial SUBCUT SCH (05:29)
[2019-03-12 06:21] LABS: BLOOD UREA NITROGEN,BUN 10 mg/dL (7.0-18.0); CARBON DIOXIDE,CO2 25.1 mmol/L (21.0-32.0); CHLORIDE,CL 101 mmol/L (98-107); GLUCOSE RANDOM 96 mg/dL (74-106); POTASSIUM,K 3.8 mmol/L (3.5-5.1); SODIUM,NA 136 mmol/L (136-148)
[2019-03-12 08:37] VITALS: BP 145/86; PULSE 81
[2019-03-12] MEDS: Finasteride 5 MG Tab PO SCH (08:38)
[2019-03-12] MEDS: Losartan 50 MG Tab PO SCH (08:38)
[2019-03-12] MEDS: amLODIPine 5 MG Tab PO SCH (08:39)
--- NOTE | 2019-03-12 11:35 | PCM.DCSUM1 ---
<Chris Steiner M - Last Filed: 03/12/19 12:06> Discharge Summary - Hospital Course Free Text/Narrative:: 68-year-old with PMH of T-cell lymphoma and renal cell carcinoma on chemotherapy. Patient admitted for fever with neutropenia. Patient reported that he had low-grade fever for 2 days prior to admission. He was started on IV cefepime. A source of infection was attempted to be found. UA was negative, CXR negative, influenza test negative and blood cultures negative after 2 days. Patient remained hemodynamically stable and afebrile throughout his hospital stay. His WBC count and neutrophil count improved during his hospitalization. Patient discharged on levaquin 750 mg qd for 5 days. Advised to follow-up with his PCP. Patient follows up with oncologist through the [facility] who he is due back to see next week. He has gone through two rounds of chemotherapy so far , three weeks apart. - Discharge Data Discharge Date: 03/12/19 Discharge Disposition: Home, Self-Care 01 Condition: Stable - Referral to Home Health Primary Care Physician: PCP None - Patient Instructions Diet: Usual Diet as Tolerated Activity: As Tolerated Notify Provider of: Fever, Increased Pain, Swelling and Redness, Drainage, Nausea and/or Vomiting - Discharge Plan *PRESCRIPTION DRUG MONITORING PROGRAM REVIEWED*: Not Applicable *COPY OF PRESCRIPTION DRUG MONITORING REPORT IN PATIENT MELISSA: Not Applicable Prescriptions/Med Rec: Levofloxacin [Levaquin] 750 mg PO DAILY 5 Days #5 tablet Home Medications: Home Meds RX: Losartan Potassium 50 tab PO DAILY 03/14/16 [History] RX: amLODIPine [Norvasc] 5 mg PO DAILY 03/14/16 [History] RX: Finasteride 5 mg PO DAILY 06/15/17 [History] RX: Morphine 15 mg PO Q4H PRN 02/17/19 [History] RX: fentaNYL [Fentanyl] 12 mcg TRDERM Q72H MDD 37.5 mcg/hr 02/24/19 [History] RX: fentaNYL [Duragesic] 25 mcg TD Q72H MDD 37.5mcg/hr 03/10/19 [History] RX: Tamsulosin HCl [Flomax] 0.4 mg PO DAILY 03/11/19 [History] Levofloxacin [Levaquin] 750 mg PO DAILY 5 Days #5 tablet 03/12/19 [Rx] Patient Handouts: Levofloxacin tablets, Neutropenia Referrals: [facility] [Outside] Mariya Jones MD [Ordering Only Provider] - - Discharge Summary/Plan Comment DC Time >30 min.: No - Patient Data Vitals - Most Recent: Last Vital Signs Temp 98.5 F 03/12/19 08:00 Pulse 81 03/12/19 08:00 Resp 16 03/12/19 08:00 BP 145/86 H 03/12/19 08:39 Pulse Ox 95 03/12/19 08:00 Weight - Most Recent: 77.3 kg I&O - Last 24 hours: Intake & Output 03/11/19 03/12/19 03/12/19 22:59 06:59 14:59 Intake Total 370 480 Output Total 300 Balance 370 180 Lab Results - Last 24 hrs: Laboratory Results - last 24 hr 03/12/19 03/12/19 Range/Units 05:30 05:30 WBC 2.31 L (4.0-11.0) K/uL RBC 3.41 L (4.50-5.90) M/uL Hgb 9.0 L (13.0-17.0) g/dL Hct 26.9 L (38.0-50.0) % MCV 78.9 L (80.0-98.0) fL MCH 26.4 L (27.0-32.0) pg MCHC 33.5 (31.0-37.0) g/dL RDW Std Deviation 43.2 (28.0-62.0) fl RDW Coeff of Harika 15 (11.0-15.0) % Plt Count 119 L (150-400) K/uL MPV 9.60 (7.40-12.00) fL Add Manual Diff YES Neutrophils % (Manual) 65 (48.0-80.0) % Band Neutrophils % 2 % Lymphocytes % (Manual) 16 (16.0-40.0) % Monocytes % (Manual) 15 (0.0-15.0) % Basophils % (Manual) 1 (0.0-1.5) % Myelocytes % 1 % Nucleated RBC % 0.0 /100WBC Absolute Seg Neuts 1.5 (1.4-5.7) Band Neutrophils # 0 Lymphocytes # (Manual) 0.4 L (0.6-2.4) Monocytes # (Manual) 0.3 (0.0-0.8) Basophils # (Manual) 0.0 (0.0-0.1) Absolute Myelocytes 0 Nucleated RBCs # 0 K/uL Sodium 136 (136-148) mmol/L Potassium 3.8 (3.5-5.1) mmol/L Chloride 101 (98-107) mmol/L Carbon Dioxide 25.1 (21.0-32.0) mmol/L BUN 10 (7.0-18.0) mg/dL Creatinine 1.0 (0.8-1.3) mg/dL Est Cr Clr Drug Dosing 68.74 mL/min Estimated GFR (MDRD) > 60.0 ml/min Glucose 96 (74-106) mg/dL Calcium 8.3 L (8.5-10.1) mg/dL JEREMIAS Results - Last 24 hrs: Microbiology 03/10/19 00:25 Urine Culture - Final Urine, Clean Catch MIXED MICHOACANO 1,000-10,000 CFU/ML 03/09/19 23:53 Aerobic Blood Culture - Preliminary Blood - Venous - Lab Draw NO GROWTH AFTER 2 DAYS Anaerobic Blood Culture - Preliminary NO GROWTH AFTER 2 DAYS 03/09/19 23:38 Aerobic Blood Culture - Preliminary Blood - Venous NO GROWTH AFTER 2 DAYS Anaerobic Blood Culture - Preliminary NO GROWTH AFTER 2 DAYS Med Orders - Current: Current Medications Amlodipine Besylate (Norvasc) 5 mg PO DAILY [facility] Last Admin: 03/12/19 08:39 Dose: 5 mg Fentanyl (Duragesic) 12 mcg TRDERM Q72H [facility] Fentanyl (Duragesic) 25 mcg TRDERM Q72H [facility] Finasteride (Proscar) 5 mg PO DAILY [facility] Last Admin: 03/12/19 08:38 Dose: 5 mg Heparin Sodium (Porcine) (Heparin Sodium) 5,000 units SUBCUT Q8H [facility] Last Admin: 03/12/19 05:29 Dose: 5,000 units Heparin Sodium (Porcine) (Heparin Lock Flush 100 Units/Ml) 500 units FLUSH ASDIRECTED PRN PRN Reason: Other Cefepime HCl 2 gm/ Premix 50 mls @ 100 mls/hr IV Q8H [facility] Last Admin: 03/12/19 08:39 Dose: 100 mls/hr Losartan Potassium (Cozaar) 50 mg PO DAILY [facility] Last Admin: 03/12/19 08:38 Dose: 50 mg Miscellaneous Information (Remove Patch) 1 ea TRDERM Q72H SMITH Morphine Sulfate (Morphine) 15 mg PO Q4H PRN PRN Reason: Pain Last Admin: 03/11/19 20:12 Dose: 15 mg Ondansetron HCl (Zofran) 4 mg IVPUSH Q4H PRN PRN Reason: Nausea Ondansetron HCl (Zofran Odt) 4 mg PO Q4H PRN PRN Reason: nausea, able to take PO Discontinued Medications Acetaminophen (Tylenol) 650 mg PO Q4H PRN PRN Reason: Pain (Mild 1-3)/fever Sodium Chloride (Normal Saline) 1,000 mls @ 999 mls/hr IV .Bolus ONE Stop: 03/10/19 00:01 Last Admin: 03/09/19 23:38 Dose: 999 mls/hr Cefepime HCl 2 gm/ Premix 50 mls @ 100 mls/hr IV ONETIME ONE Stop: 03/10/19 01:34 Last Admin: 03/10/19 01:27 Dose: 100 mls/hr Cefepime HCl 2 gm/ Premix 50 mls @ 100 mls/hr IV Q8H SMITH Sodium Chloride (Normal Saline) 1,000 mls @ 125 mls/hr IV ASDIRECTED SMITH Last Admin: 03/10/19 22:33 Dose: 125 mls/hr Morphine Sulfate (Morphine) 2 mg IVPUSH Q2H PRN PRN Reason: Pain (severe 7-10) Stop: 03/11/19 08:36 <Tristen Hernandez - Last Filed: 03/12/19 19:02> Discharge Summary - Referral to Home Health Primary Care Physician: PCP None - Patient Data Vitals - Most Recent: Last Vital Signs Temp 36.9 C 03/12/19 08:00 Pulse 81 03/12/19 08:00 Resp 16 03/12/19 08:00 BP 145/86 H 03/12/19 08:39 Pulse Ox 95 03/12/19 08:00 I&O - Last 24 hours: Intake & Output 03/12/19 03/12/19 03/12/19 06:59 14:59 22:59 Intake Total 480 1050 Output Total 300 Balance 180 1050 Lab Results - Last 24 hrs: Laboratory Results - last 24 hr 03/12/19 03/12/19 Range/Units 05:30 05:30 WBC 2.31 L (4.0-11.0) K/uL RBC 3.41 L (4.50-5.90) M/uL Hgb 9.0 L (13.0-17.0) g/dL Hct 26.9 L (38.0-50.0) % MCV 78.9 L (80.0-98.0) fL MCH 26.4 L (27.0-32.0) pg MCHC 33.5 (31.0-37.0) g/dL RDW Std Deviation 43.2 (28.0-62.0) fl RDW Coeff of Harika 15 (11.0-15.0) % Plt Count 119 L (150-400) K/uL MPV 9.60 (7.40-12.00) fL Add Manual Diff YES Neutrophils % (Manual) 65 (48.0-80.0) % Band Neutrophils % 2 % Lymphocytes % (Manual) 16 (16.0-40.0) % Monocytes % (Manual) 15 (0.0-15.0) % Basophils % (Manual) 1 (0.0-1.5) % Myelocytes % 1 % Nucleated RBC % 0.0 /100WBC Absolute Seg Neuts 1.5 (1.4-5.7) Band Neutrophils # 0 Lymphocytes # (Manual) 0.4 L (0.6-2.4) Monocytes # (Manual) 0.3 (0.0-0.8) Basophils # (Manual) 0.0 (0.0-0.1) Absolute Myelocytes 0 Nucleated RBCs # 0 K/uL Sodium 136 (136-148) mmol/L Potassium 3.8 (3.5-5.1) mmol/L Chloride 101 (98-107) mmol/L Carbon Dioxide 25.1 (21.0-32.0) mmol/L BUN 10 (7.0-18.0) mg/dL Creatinine 1.0 (0.8-1.3) mg/dL Est Cr Clr Drug Dosing 68.74 mL/min Estimated GFR (MDRD) > 60.0 ml/min Glucose 96 (74-106) mg/dL Calcium 8.3 L (8.5-10.1) mg/dL JEREMIAS Results - Last 24 hrs: Microbiology 11/21/19 00:25 Urine Culture - Final Urine, Clean Catch MIXED MICHOACANO 1,000-10,000 CFU/ML 03/09/19 23:53 Aerobic Blood Culture - Preliminary Blood - Venous - Lab Draw NO GROWTH AFTER 2 DAYS Anaerobic Blood Culture - Preliminary NO GROWTH AFTER 2 DAYS 03/09/19 23:38 Aerobic Blood Culture - Preliminary Blood - Venous NO GROWTH AFTER 2 DAYS Anaerobic Blood Culture - Preliminary NO GROWTH AFTER 2 DAYS Med Orders - Current: Current Medications Discontinued Medications Acetaminophen (Tylenol) 650 mg PO Q4H PRN PRN Reason: Pain (Mild 1-3)/fever Amlodipine Besylate (Norvasc) 5 mg PO DAILY [facility] Last Admin: 03/12/19 08:39 Dose: 5 mg Fentanyl (Duragesic) 12 mcg TRDERM Q72H SMITH Fentanyl (Duragesic) 25 mcg TRDERM Q72H [facility] Finasteride (Proscar) 5 mg PO DAILY [facility] Last Admin: 03/12/19 08:38 Dose: 5 mg Heparin Sodium (Porcine) (Heparin Sodium) 5,000 units SUBCUT Q8H [facility] Last Admin: 03/12/19 05:29 Dose: 5,000 units Heparin Sodium (Porcine) (Heparin Lock Flush 100 Units/Ml) 500 units FLUSH ASDIRECTED PRN PRN Reason: Other Last Admin: 03/12/19 11:42 Dose: 500 units Sodium Chloride (Normal Saline) 1,000 mls @ 999 mls/hr IV .Bolus ONE Stop: 03/10/19 00:01 Last Admin: 03/09/19 23:38 Dose: 999 mls/hr Cefepime HCl 2 gm/ Premix 50 mls @ 100 mls/hr IV ONETIME ONE Stop: 03/10/19 01:34 Last Admin: 03/10/19 01:27 Dose: 100 mls/hr Cefepime HCl 2 gm/ Premix 50 mls @ 100 mls/hr IV Q8H [facility] Cefepime HCl 2 gm/ Premix 50 mls @ 100 mls/hr IV Q8H [facility] Last Admin: 03/12/19 08:39 Dose: 100 mls/hr Sodium Chloride (Normal Saline) 1,000 mls @ 125 mls/hr IV ASDIRECTED [facility] Last Admin: 03/10/19 22:33 Dose: 125 mls/hr Losartan Potassium (Cozaar) 50 mg PO DAILY SMITH Last Admin: 03/12/19 08:38 Dose: 50 mg Miscellaneous Information (Remove Patch) 1 ea TRDERM Q72H SMITH Morphine Sulfate (Morphine) 2 mg IVPUSH Q2H PRN PRN Reason: Pain (severe 7-10) Stop: 03/11/19 08:36 Morphine Sulfate (Morphine) 15 mg PO Q4H PRN PRN Reason: Pain Last Admin: 03/11/19 20:12 Dose: 15 mg Ondansetron HCl (Zofran) 4 mg IVPUSH Q4H PRN PRN Reason: Nausea Ondansetron HCl (Zofran Odt) 4 mg PO Q4H PRN PRN Reason: nausea, able to take PO - Free Text/Narrative Note: I have seen and evaluated the patient with the resident. I have discussed findings and treatment plan with the resident. I agree with the assessment and plan in the following note.
[2019-03-12] MEDS ORDERED: fentaNYL 25 MCG/HR Transdermal Patch TRDERM SCH (18:00)
[2019-03-12] MEDS ORDERED: fentaNYL 12 MCG/HR Transdermal Patch TRDERM SCH (18:00)
== END 2019-03-12 12:15 | disposition home or self-care (01) | DRG 809 ==
LOC: MW.ED 22:44 → MW.MS 03-10 01:10
PROVIDERS: ADMIT Internal Medicine; ATTEND Internal Medicine
DX: R50.9 Fever, unspecified (principal); D70.9 Neutropenia, unspecified; C85.90 Non-Hodgkin lymphoma, unspecified, unspecified site; H54.7 Unspecified visual loss; C91.50 Adult T-cell lymphoma/leukemia (HTLV-1-associated) not having achieved remission; C64.9 Malignant neoplasm of unspecified kidney, except renal pelvis; Z85.528 Personal history of other malignant neoplasm of kidney; Z86.14 Personal history of Methicillin resistant Staphylococcus aureus infection; E78.00 Pure hypercholesterolemia, unspecified; R50.81 Fever presenting with conditions classified elsewhere; I10 Essential (primary) hypertension; Z79.899 Other long term (current) drug therapy
CPT/HCPCS: 36415; 71045; 80053; 81001; 83605; 85025; 87040 ×2; 87086; 87804 ×2; 96360; 99285; J7040; 80048; 99284; A9270-GY; J0692; J1642; J1644

== ENCOUNTER 2019-04-22 15:37 | Inpatient (IN) | payer OTHER, MEDICARE ==
[2019-04-22] MEDS ORDERED: Acetaminophen 500 MG Tab PO ONE (17:24)
--- NOTE | 2019-04-22 17:43 | EDM.PDOC ---
ED HPI GENERAL MEDICAL PROBLEM - General Chief Complaint: Fever Stated Complaint: FEELING SICK AFTER CHEMO Time Seen by Provider: 04/22/19 17:38 Source of Information: Reports: Patient, Family History Limitations: Reports: No Limitations - History of Present Illness INITIAL COMMENTS - FREE TEXT/NARRATIVE: Is a 69-year-old male who is undergoing chemotherapy for lymphoma with mass who started feeling febrile last night and had a temperature of 100.1 earlier today and is now running a temperature of 102.8. Patient is feeling rigors and has a slight cough. He denies any dysuria or hematuria. He denies any change in his chronic abdominal pain. Patient last underwent chemotherapy in [facility] on April 14. He denies any headache or any rash. There is been no vomiting or diarrhea. Patient has had no change in his appetite. Duration: Day(s): Location: Reports: Generalized Severity: Moderate Improves with: Reports: None Worsens with: Reports: None Associated Symptoms: Reports: Cough, Fever/Chills. Denies: cough w sputum, Headaches, Loss of Appetite, Malaise, Nausea/Vomiting, Rash, Shortness of Breath - Related Data Allergies Allergy/AdvReac Type Severity Reaction Status Date / Time No Known Allergies Allergy Verified 04/22/19 16:19 Home Meds: Home Meds Losartan Potassium 50 tab PO DAILY 03/14/16 [History] amLODIPine [Norvasc] 5 mg PO DAILY 03/14/16 [History] Finasteride 5 mg PO DAILY 06/15/17 [History] Morphine 15 mg PO Q4H PRN 02/17/19 [History] fentaNYL [Fentanyl] 12 mcg TRDERM Q72H MDD 37.5 mcg/hr 02/24/19 [History] fentaNYL [Duragesic] 25 mcg TD Q72H MDD 37.5mcg/hr 03/10/19 [History] Tamsulosin HCl [Flomax] 0.4 mg PO DAILY 03/11/19 [History] Past Medical History HEENT History: Reports: Impaired Vision Other HEENT History: wears reading glasses Cardiovascular History: Reports: Arrhythmia, High Cholesterol, Hypertension Respiratory History: Reports: Other (See Below) Other Respiratory History: over 1 week ago was prescribed inhaler for cough and congestion, no problems now Gastrointestinal History: Reports: None Genitourinary History: Reports: BPH, Other (See Below) Other Genitourinary History: kidney cancer Musculoskeletal History: Reports: Fracture Neurological History: Reports: Vertigo Other Neuro History: hx of motion sickness, hx of vertigo Psychiatric History: Reports: None Endocrine/Metabolic History: Reports: None Hematologic History: Reports: None Immunologic History: Reports: None Oncologic (Cancer) History: Reports: Other (See Below) Other Oncologic History: T-cell lymphoma CD30+ (positive), kidney cancer. Dermatologic History: Reports: None - Infectious Disease History Infectious Disease History: Reports: Chicken Pox, MRSA, Mumps - Past Surgical History Head Surgeries/Procedures: Reports: None HEENT Surgical History: Reports: None Cardiovascular Surgical History: Reports: None Respiratory Surgical History: Reports: None GI Surgical History: Reports: None Male Surgical History: Reports: None Endocrine Surgical History: Reports: None Neurological Surgical History: Reports: None Musculoskeletal Surgical History: Reports: Arthroscopic Knee, ORIF Other Musculoskeletal Surgeries/Procedures:: ORIF left ring finger with pin removal Oncologic Surgical History: Reports: Bone Marrow Aspiration Dermatological Surgical History: Reports: None Social & Family History - Family History Family Medical History: Noncontributory - Tobacco Use Smoking Status *Q: Never Smoker - Caffeine Use Caffeine Use: Reports: Coffee - Recreational Drug Use Recreational Drug Use: No ED ROS GENERAL - Review of Systems Review Of Systems: Comprehensive ROS is negative, except as noted in HPI. Constitutional: Reports: Fever, Chills. Denies: Malaise, Decreased Appetite ED EXAM, SEPSIS - Physical Exam Exam: Not Obtained Text/Narrative:: Exam: See Below Exam Limited By: No Limitations Head: Atraumatic, positive for rigors. Neck: Normal Inspection. No: Carotid Bruit, Lymphadenopathy (R) Respiratory/Chest: No Respiratory Distress, Lungs Clear, Normal Breath Sounds, No Accessory Muscle Use. No: Chest Non-Tender Cardiovascular: Normal Peripheral Pulses, Regular Rate, Rhythm, No Edema, No JVD GI/Abdominal: Normal Bowel Sounds, Tender abdomen with soft swelling/mass. No: Non-Tender, Splenomegaly Back Exam: Normal Inspection. No: CVA Tenderness (R) Extremities: Normal Inspection. No: No Pedal Edema Neurological: Alert, Oriented, Normal Cognition Psychiatric: Normal Affect Skin Exam: Warm Lymphatic: No Adenopathy Course - Vital Signs Last Recorded V/S: Last Vital Signs Temp 39.3 C H 04/22/19 17:59 Pulse 116 H 04/22/19 16:17 Resp 18 04/22/19 16:17 BP 122/63 04/22/19 16:17 Pulse Ox 96 04/22/19 16:17 - Orders/Labs/Meds Orders: Active Orders 24 hr Category Date Time Status Admission Status [Patient Status] [ADT] Stat ADT 04/22/19 19:07 Active Communication Order [RC] DAILY Care 04/22/19 19:13 Active Heart Healthy Diet [DIET] Diet 04/23/19 Breakfast Active CBC WITH AUTO DIFF [HEME] Stat Lab 04/22/19 17:45 Results CULTURE BLOOD [BC] Stat Lab 04/22/19 17:45 Received CULTURE BLOOD [BC] Stat Lab 04/22/19 18:09 Received Cefepime [Maxipime in D5W 1 GM/50 ML] 1 gm Med 04/22/19 19:15 Active Premix Bag 1 bag IV Q8H Cefepime [Maxipime in D5W 2 GM/50 ML] 2 gm Med 04/22/19 18:48 Active Premix Bag 1 bag IV ONETIME Finasteride [Proscar] Med 04/23/19 09:00 Ordered 5 mg PO DAILY Levofloxacin/Dextrose 5%-Water [Levaquin in D5W 500 MG/ Med 04/22/19 18:48 Active 100 ML] 500 mg Premix Bag 1 bag IV ONETIME Losartan Potassium Med 04/23/19 09:00 Ordered 50 tab PO DAILY Morphine Med 04/22/19 19:15 Ordered 15 mg PO Q4H PRN Pantoprazole [ProTONIX] Med 04/23/19 09:00 Active 40 mg PO DAILY Tamsulosin [Flomax] Med 04/23/19 09:00 Ordered 0.4 mg PO DAILY amLODIPine Med 04/23/19 09:00 Ordered 5 mg PO DAILY fentaNYL [Duragesic] Med 04/22/19 19:15 Ordered 25 mcg TOP Q72H fentaNYL [Fentanyl] Med 04/22/19 19:15 Ordered 12 mcg TRDERM Q72H Blood Culture x2 Reflex Set [OM.PC] Stat Oth 04/22/19 17:46 Ordered Code Status [Resuscitation Status] Stat Resus Stat 04/22/19 19:07 Ordered Medication Orders Cefepime HCl 2 gm/ Premix 50 mls @ 100 mls/hr IV ONETIME ONE Stop: 04/22/19 19:17 Levofloxacin/Dextrose 500 mg/ (Premix) 100 mls @ 100 mls/hr IV ONETIME ONE Stop: 04/22/19 19:47 Last Admin: 04/22/19 19:16 Dose: 100 mls/hr Cefepime HCl 1 gm/ Premix 50 mls @ 100 mls/hr IV Q8H SMITH Pantoprazole Sodium (Protonix) 40 mg PO DAILY SMITH Labs: Laboratory Tests 04/22/19 04/22/19 04/22/19 Range/Units 17:45 17:45 17:56 WBC 0.15 L (4.0-11.0) K/uL RBC 3.08 L (4.50-5.90) M/uL Hgb 8.1 L (13.0-17.0) g/dL Hct 25.5 L (38.0-50.0) % MCV 82.8 (80.0-98.0) fL MCH 26.3 L (27.0-32.0) pg MCHC 31.8 (31.0-37.0) g/dL RDW Std Deviation 55.6 (28.0-62.0) fl RDW Coeff of Harika 19 H (11.0-15.0) % Plt Count 83 L (150-400) K/uL MPV 9.40 (7.40-12.00) fL Add Manual Diff YES Nucleated RBC % 0.0 /100WBC Nucleated RBCs # 0 K/uL Lactate (0.20-2.00) mmol/L Sodium 135 L (136-148) mmol/L Potassium 3.6 (3.5-5.1) mmol/L Chloride 98 (98-107) mmol/L Carbon Dioxide 26.0 (21.0-32.0) mmol/L BUN 20 H (7.0-18.0) mg/dL Creatinine 1.0 (0.8-1.3) mg/dL Est Cr Clr Drug Dosing 68.86 mL/min Estimated GFR (MDRD) > 60.0 ml/min Glucose 119 H (74-106) mg/dL Calcium 9.1 (8.5-10.1) mg/dL Total Bilirubin 1.1 H (0.2-1.0) mg/dL AST 21 (15-37) IU/L ALT 47 (14-63) IU/L Alkaline Phosphatase 81 (46-116) U/L Total Protein 6.6 (6.4-8.2) g/dL Albumin 3.5 (3.4-5.0) g/dL Globulin 3.1 (2.6-4.0) g/dL Albumin/Globulin Ratio 1.1 (0.9-1.6) Urine Color YELLOW Urine Appearance CLEAR Urine pH 6.0 (5.0-8.0) Ur Specific [place] 1.015 (1.001-1.035) Urine Protein TRACE H (NEGATIVE) mg/dL Urine Glucose (UA) NEGATIVE (NEGATIVE) mg/dL Urine Ketones NEGATIVE (NEGATIVE) mg/dL Urine Occult Blood NEGATIVE (NEGATIVE) Urine Nitrite NEGATIVE (NEGATIVE) Urine Bilirubin NEGATIVE (NEGATIVE) Urine Urobilinogen 0.2 (<2.0) EU/dL Ur Leukocyte Esterase NEGATIVE (NEGATIVE) Urine RBC 0-2 (0-2/HPF) Urine WBC 0-2 (0-5/HPF) Ur Epithelial Cells RARE (NONE-FEW) Urine Bacteria FEW (NEGATIVE) 04/22/19 Range/Units 18:09 WBC (4.0-11.0) K/uL RBC (4.50-5.90) M/uL Hgb (13.0-17.0) g/dL Hct (38.0-50.0) % MCV (80.0-98.0) fL MCH (27.0-32.0) pg MCHC (31.0-37.0) g/dL RDW Std Deviation (28.0-62.0) fl RDW Coeff of Harika (11.0-15.0) % Plt Count (150-400) K/uL MPV (7.40-12.00) fL Add Manual Diff Nucleated RBC % /100WBC Nucleated RBCs # K/uL Lactate 1.4 (0.20-2.00) mmol/L Sodium (136-148) mmol/L Potassium (3.5-5.1) mmol/L Chloride (98-107) mmol/L Carbon Dioxide (21.0-32.0) mmol/L BUN (7.0-18.0) mg/dL Creatinine (0.8-1.3) mg/dL Est Cr Clr Drug Dosing mL/min Estimated GFR (MDRD) ml/min Glucose (74-106) mg/dL Calcium (8.5-10.1) mg/dL Total Bilirubin (0.2-1.0) mg/dL AST (15-37) IU/L ALT (14-63) IU/L Alkaline Phosphatase (46-116) U/L Total Protein (6.4-8.2) g/dL Albumin (3.4-5.0) g/dL Globulin (2.6-4.0) g/dL Albumin/Globulin Ratio (0.9-1.6) Urine Color Urine Appearance Urine pH (5.0-8.0) Ur Specific [place] (1.001-1.035) Urine Protein (NEGATIVE) mg/dL Urine Glucose (UA) (NEGATIVE) mg/dL Urine Ketones (NEGATIVE) mg/dL Urine Occult Blood (NEGATIVE) Urine Nitrite (NEGATIVE) Urine Bilirubin (NEGATIVE) Urine Urobilinogen (<2.0) EU/dL Ur Leukocyte Esterase (NEGATIVE) Urine RBC (0-2/HPF) Urine WBC (0-5/HPF) Ur Epithelial Cells (NONE-FEW) Urine Bacteria (NEGATIVE) Meds: Medications Generic Name Dose Route Start Last Admin Trade Name Freq PRN Reason Stop Dose Admin Cefepime HCl 2 gm/ Premix 50 mls @ 100 mls/hr 04/22/19 18:48 IV 04/22/19 19:17 ONETIME ONE Levofloxacin/Dextrose 500 mg/ 100 mls @ 100 mls/hr 04/22/19 18:48 04/22/19 19 :16 Premix IV 04/22/19 19:47 100 mls/hr ONETIME ONE Administration Cefepime HCl 1 gm/ Premix 50 mls @ 100 mls/hr 04/22/19 19:15 IV Q8H SMITH Pantoprazole Sodium 40 mg 04/23/19 09:00 Protonix PO DAILY SMITH Discontinued Medications Generic Name Dose Route Start Last Admin Trade Name Freq PRN Reason Stop Dose Admin Acetaminophen 1,000 mg 04/22/19 17:24 04/22/19 17:59 Tylenol Extra Strength PO 04/22/19 17:25 1,000 mg ONETIME ONE Administration Levofloxacin/Dextrose 750 mg/ 150 mls @ 100 mls/hr 04/23/19 19:15 Premix IV Q24H SMITH - Re-Assessments/Exams Free Text/Narrative Re-Assessment/Exam: 04/22/19 19:17 Patient's chest x-ray is abnormal and that he read as a left-sided effusion possibly infiltrate. His white blood cell count is 0.14. Urine shows no sign of infection. Patient's lactate is 1.4. He has been started on cefepime and Levaquin and will be admitted to the hospital at this time. Blood cultures still pending. Has been given some Tylenol upon his arrival. Departure - Departure Time of Disposition: 19:18 Disposition: Admitted As Inpatient 64 Condition: Fair Clinical Impression: Fever and chills, Pneumonia, Chemotherapy induced neutropenia - Discharge Information Referrals: Phil Murphy, PIGGERY WORKER [Primary Care Provider] - Forms: ED Department Discharge Additional Instructions: Patient is being admitted to the hospital at this time. Hospitalist is Dr. Hernandez. Sepsis Event Note - Evaluation Sepsis Screening Result: No Definite Risk - Focused Exam Vital Signs: Vital Signs Temp Temp Pulse Resp BP Pulse Ox 04/22/19 17:59 39.3 C H 04/22/19 16:17 38.4 C H 116 H 18 122/63 96 Date Exam was Performed: 04/22/19 Time Exam was Performed: 19:17 - My Orders Last 24 Hours: My Active Orders 04/22/19 17:45 CBC WITH AUTO DIFF [HEME] Stat CULTURE BLOOD [BC] Stat 04/22/19 17:46 Blood Culture x2 Reflex Set [OM.PC] Stat 04/22/19 18:09 CULTURE BLOOD [BC] Stat 04/22/19 18:48 Cefepime [Maxipime in D5W 2 GM/50 ML] 2 gm Premix Bag 1 bag IV ONETIME Levofloxacin/Dextrose 5%-Water [Levaquin in D5W 500 MG/100 ML] 500 mg Premix Bag 1 bag IV ONETIME - Assessment/Plan Last 24 Hours: My Active Orders 04/22/19 17:45 CBC WITH AUTO DIFF [HEME] Stat CULTURE BLOOD [BC] Stat 04/22/19 17:46 Blood Culture x2 Reflex Set [OM.PC] Stat 04/22/19 18:09 CULTURE BLOOD [BC] Stat 04/22/19 18:48 Cefepime [Maxipime in D5W 2 GM/50 ML] 2 gm Premix Bag 1 bag IV ONETIME Levofloxacin/Dextrose 5%-Water [Levaquin in D5W 500 MG/100 ML] 500 mg Premix Bag 1 bag IV ONETIME
[2019-04-22] MEDS ORDERED: Sodium Chloride 0.9% 1,000 ML IV ONE ×2 (17:45→19:29)
[2019-04-22 18:28] LABS: BLOOD UREA NITROGEN,BUN 20 mg/dL (7.0-18.0); CHLORIDE,CL 98 mmol/L (98-107); GLUCOSE RANDOM 119 mg/dL (74-106); POTASSIUM,K 3.6 mmol/L (3.5-5.1); SODIUM,NA 135 mmol/L (136-148)
[2019-04-22] MEDS ORDERED: Levofloxacin/Dextrose 5%-Water 500 MG in Premix Bag 1 BAG IV ONE (18:48)
[2019-04-22] MEDS ORDERED: Cefepime 2 GM in Premix Bag 1 BAG IV ONE (18:48)
--- NOTE | 2019-04-22 18:55 | CR ---
HISTORY: Fever. On chemotherapy. TECHNIQUE: Two-view chest. COMPARISON: Chest x-ray 03/09/2019. FINDINGS: Right-sided port is unchanged. Unchanged elevation the right hemidiaphragm. No airspace consolidation. No pleural effusion or pneumothorax. Pulmonary vasculature is within normal limits. Cardiomediastinal silhouette is within normal limits. IMPRESSION: No acute findings. No change from 03/09/2019. Dictated by Sebastian Schroeder MD @ Apr 22 2019 6:53PM Signed by Dr. Sebastian Schroeder @ Apr 22 2019 6:54PM
[2019-04-22] MEDS ORDERED: Morphine 15 MG Tab PO PRN (19:15)
[2019-04-22] MEDS ORDERED: Non-Formulary Medication 1 Each (Fentanyl [Fentanyl] 12 MCG) TRDERM SCH (19:15)
[2019-04-22] MEDS ORDERED: Cefepime 1 GM in Premix Bag 1 BAG IV SCH (19:15)
[2019-04-22] MEDS ORDERED: fentaNYL 25 MCG/HR Transdermal Patch TOP SCH (19:15)
--- NOTE | 2019-04-22 19:18 | PCM.HP.2 ---
H&P History of Present Illness - General Date of Service: 04/22/19 Admit Problem/Dx: Admission Diagnosis/Problem Admission Diagnosis/Problem Neutropenia Source of Information: Patient History Limitations: Reports: No Limitations - History of Present Illness Initial Comments - Free Text/Narative: Patient is a 69-year-old male with a past medical history of T-cell lymphoma, renal cell carcinoma presenting with 1 day of elevated temperature; T-max 102.5 at home. Patient endorsed a mild sore throat and neck pain; had 2 ultrasounds done this morning suggesting no acute processes appreciated; patient visited cancer center this morning and received 1 L of IV fluids; after returning home patient began to feel feverish with chills. Patient otherwise denies any other significant complaints except a mild nonproductive cough and sore throat. States he has had some mild diarrhea as well however this is his baseline considering it is been 8 days since his last chemotherapy treatment. Patient otherwise is not complaining of any acute chest pain, shortness of breath, headache, rashes or any other concerning acute symptoms at this time. ED course: Patient found to be neutropenic with elevated temperature. Chest x- ray negative. UA negative. Admitted to inpatient for antibiotic treatment and observation. - Related Data Allergies/Adverse Reactions: Allergies Allergy/AdvReac Type Severity Reaction Status Date / Time No Known Allergies Allergy Verified 04/22/19 16:19 Home Medications: Home Meds Losartan Potassium 50 tab PO DAILY 03/14/16 [History] amLODIPine [Norvasc] 5 mg PO DAILY 03/14/16 [History] Finasteride 5 mg PO DAILY 06/15/17 [History] Morphine 15 mg PO Q4H PRN 02/17/19 [History] fentaNYL [Fentanyl] 12 mcg TRDERM Q72H MDD 37.5 mcg/hr 02/24/19 [History] fentaNYL [Duragesic] 25 mcg TD Q72H MDD 37.5mcg/hr 03/10/19 [History] Tamsulosin HCl [Flomax] 0.4 mg PO DAILY 03/11/19 [History] Past Medical History HEENT History: Reports: Impaired Vision Other HEENT History: wears reading glasses Cardiovascular History: Reports: Arrhythmia, High Cholesterol, Hypertension Respiratory History: Reports: Other (See Below) Other Respiratory History: over 1 week ago was prescribed inhaler for cough and congestion, no problems now Gastrointestinal History: Reports: None Genitourinary History: Reports: BPH, Other (See Below) Other Genitourinary History: kidney cancer Musculoskeletal History: Reports: Fracture Neurological History: Reports: Vertigo Other Neuro History: hx of motion sickness, hx of vertigo Psychiatric History: Reports: None Endocrine/Metabolic History: Reports: None Hematologic History: Reports: None Immunologic History: Reports: None Oncologic (Cancer) History: Reports: Other (See Below) Other Oncologic History: T-cell lymphoma CD30+ (positive), kidney cancer. Dermatologic History: Reports: None - Infectious Disease History Infectious Disease History: Reports: Chicken Pox, MRSA, Mumps - Past Surgical History Head Surgeries/Procedures: Reports: None HEENT Surgical History: Reports: None Cardiovascular Surgical History: Reports: None Respiratory Surgical History: Reports: None GI Surgical History: Reports: None Male Surgical History: Reports: None Endocrine Surgical History: Reports: None Neurological Surgical History: Reports: None Musculoskeletal Surgical History: Reports: Arthroscopic Knee, ORIF Other Musculoskeletal Surgeries/Procedures:: ORIF left ring finger with pin removal Oncologic Surgical History: Reports: Bone Marrow Aspiration Dermatological Surgical History: Reports: None Social & Family History - Family History Family Medical History: Noncontributory - Tobacco Use Smoking Status *Q: Never Smoker - Caffeine Use Caffeine Use: Reports: Coffee - Recreational Drug Use Recreational Drug Use: No H&P Review of Systems - Review of Systems: Review Of Systems: See Below General: Reports: Fever, Chills, Weakness, Fatigue HEENT: Reports: Rhinitis, Sore Throat. Denies: Headaches Pulmonary: Reports: Cough. Denies: Shortness of Breath, Wheezing, Sputum Cardiovascular: Denies: Chest Pain, Palpitations, Edema Gastrointestinal: Reports: Diarrhea (mild at baseline ). Denies: Abdominal Pain , Constipation Genitourinary: Reports: Other (suprapubic pain ; denies dysuria and or color discooloration ) Musculoskeletal: Reports: No Symptoms Skin: Denies: Rash Psychiatric: Denies: Confusion, Depression Neurological: Denies: Confusion, Headache Hematologic/Lymphatic: Reports: Swollen Glands Exam - Exam Exam: See Below - Vital Signs Vital Signs: Last Vital Signs Temp 102.8 F H 04/22/19 17:59 Pulse 116 H 04/22/19 16:17 Resp 18 04/22/19 16:17 BP 122/63 04/22/19 16:17 Pulse Ox 96 04/22/19 16:17 Weight: 180 lb - Exam General: Alert, Oriented HEENT: EOMI, Hearing Intact, Mucosa Moist & [place], Nares Patent, Pupils Equal, TMs Clear (increaed cerumen appreciated ), Other (minimal scleral icterus ) Neck: Supple, Trachea Midline Lungs: Clear to Auscultation, Normal Respiratory Effort Cardiovascular: Regular Rate, Regular Rhythm GI/Abdominal Exam: Other (diffuse abdominal tenderness w/ organomegaly ; + suprapubic tenderness; baseline per patient especially since recent chemotherpy ) Back Exam: Normal Inspection Extremities: No Pedal Edema Skin: Warm, Dry Neuro Extensive - Mental Status: Alert, Oriented x3, Normal Mood/Affect Psychiatric: Alert, Normal Affect, Normal Mood - Patient Data Lab Results Last 24 hrs: Laboratory Results - last 24 hr 04/22/19 04/22/19 04/22/19 Range/Units 17:45 17:45 17:56 WBC 0.15 L (4.0-11.0) K/uL RBC 3.08 L (4.50-5.90) M/uL Hgb 8.1 L (13.0-17.0) g/dL Hct 25.5 L (38.0-50.0) % MCV 82.8 (80.0-98.0) fL MCH 26.3 L (27.0-32.0) pg MCHC 31.8 (31.0-37.0) g/dL RDW Std Deviation 55.6 (28.0-62.0) fl RDW Coeff of Harika 19 H (11.0-15.0) % Plt Count 83 L (150-400) K/uL MPV 9.40 (7.40-12.00) fL Add Manual Diff YES Nucleated RBC % 0.0 /100WBC Nucleated RBCs # 0 K/uL Lactate (0.20-2.00) mmol/L Sodium 135 L (136-148) mmol/L Potassium 3.6 (3.5-5.1) mmol/L Chloride 98 (98-107) mmol/L Carbon Dioxide 26.0 (21.0-32.0) mmol/L BUN 20 H (7.0-18.0) mg/dL Creatinine 1.0 (0.8-1.3) mg/dL Est Cr Clr Drug Dosing 68.86 mL/min Estimated GFR (MDRD) > 60.0 ml/min Glucose 119 H (74-106) mg/dL Calcium 9.1 (8.5-10.1) mg/dL Total Bilirubin 1.1 H (0.2-1.0) mg/dL AST 21 (15-37) IU/L ALT 47 (14-63) IU/L Alkaline Phosphatase 81 (46-116) U/L Total Protein 6.6 (6.4-8.2) g/dL Albumin 3.5 (3.4-5.0) g/dL Globulin 3.1 (2.6-4.0) g/dL Albumin/Globulin Ratio 1.1 (0.9-1.6) Urine Color YELLOW Urine Appearance CLEAR Urine pH 6.0 (5.0-8.0) Ur Specific [place] 1.015 (1.001-1.035) Urine Protein TRACE H (NEGATIVE) mg/dL Urine Glucose (UA) NEGATIVE (NEGATIVE) mg/dL Urine Ketones NEGATIVE (NEGATIVE) mg/dL Urine Occult Blood NEGATIVE (NEGATIVE) Urine Nitrite NEGATIVE (NEGATIVE) Urine Bilirubin NEGATIVE (NEGATIVE) Urine Urobilinogen 0.2 (<2.0) EU/dL Ur Leukocyte Esterase NEGATIVE (NEGATIVE) Urine RBC 0-2 (0-2/HPF) Urine WBC 0-2 (0-5/HPF) Ur Epithelial Cells RARE (NONE-FEW) Urine Bacteria FEW (NEGATIVE) 04/22/19 Range/Units 18:09 WBC (4.0-11.0) K/uL RBC (4.50-5.90) M/uL Hgb (13.0-17.0) g/dL Hct (38.0-50.0) % MCV (80.0-98.0) fL MCH (27.0-32.0) pg MCHC (31.0-37.0) g/dL RDW Std Deviation (28.0-62.0) fl RDW Coeff of Harika (11.0-15.0) % Plt Count (150-400) K/uL MPV (7.40-12.00) fL Add Manual Diff Nucleated RBC % /100WBC Nucleated RBCs # K/uL Lactate 1.4 (0.20-2.00) mmol/L Sodium (136-148) mmol/L Potassium (3.5-5.1) mmol/L Chloride (98-107) mmol/L Carbon Dioxide (21.0-32.0) mmol/L BUN (7.0-18.0) mg/dL Creatinine (0.8-1.3) mg/dL Est Cr Clr Drug Dosing mL/min Estimated GFR (MDRD) ml/min Glucose (74-106) mg/dL Calcium (8.5-10.1) mg/dL Total Bilirubin (0.2-1.0) mg/dL AST (15-37) IU/L ALT (14-63) IU/L Alkaline Phosphatase (46-116) U/L Total Protein (6.4-8.2) g/dL Albumin (3.4-5.0) g/dL Globulin (2.6-4.0) g/dL Albumin/Globulin Ratio (0.9-1.6) Urine Color Urine Appearance Urine pH (5.0-8.0) Ur Specific [place] (1.001-1.035) Urine Protein (NEGATIVE) mg/dL Urine Glucose (UA) (NEGATIVE) mg/dL Urine Ketones (NEGATIVE) mg/dL Urine Occult Blood (NEGATIVE) Urine Nitrite (NEGATIVE) Urine Bilirubin (NEGATIVE) Urine Urobilinogen (<2.0) EU/dL Ur Leukocyte Esterase (NEGATIVE) Urine RBC (0-2/HPF) Urine WBC (0-5/HPF) Ur Epithelial Cells (NONE-FEW) Urine Bacteria (NEGATIVE) Result Diagrams: 04/22/19 17:45 04/22/19 17:45 Darryn Results Last 24 hrs: Microbiology 04/22/19 18:45 Influenza Type A Antigen Screen - Final Nasopharyngeal Swab NEGATIVE INFLUENZA A VIRUS AG REFERENCE RANGE: NEGATIVE Influenza Type B Antigen Screen - Final NEGATIVE INFLUENZA B VIRUS AG REFERENCE RANGE: NEGATIVE Sepsis Event Note - Evaluation Sepsis Screening Result: No Definite Risk - Focused Exam Vital Signs: Vital Signs Temp Temp Pulse Resp BP Pulse Ox 04/22/19 17:59 102.8 F H 04/22/19 16:17 101.1 F H 116 H 18 122/63 96 Date Exam was Performed: 04/22/19 Time Exam was Performed: 19:23 Problem List Initiated/Reviewed/Updated: Yes Orders Last 24hrs: Active Orders 24 hr Category Date Time Status Admission Status [Patient Status] [ADT] Stat ADT 04/22/19 19:07 Active Communication Order [RC] DAILY Care 04/22/19 19:13 Ordered Heart Healthy Diet [DIET] Diet 04/23/19 Breakfast Active CBC WITH AUTO DIFF [HEME] Stat Lab 04/22/19 17:45 Results CULTURE BLOOD [BC] Stat Lab 04/22/19 17:45 Received CULTURE BLOOD [BC] Stat Lab 04/22/19 18:09 Received Cefepime [Maxipime in D5W 1 GM/50 ML] 1 gm Med 04/22/19 19:15 Active Premix Bag 1 bag IV Q8H Finasteride [Proscar] Med 04/23/19 09:00 Ordered 5 mg PO DAILY Levofloxacin/Dextrose 5%-Water [Levaquin in D5W 500 MG/ Med 04/22/19 18:48 Active 100 ML] 500 mg Premix Bag 1 bag IV ONETIME Losartan Potassium Med 04/23/19 09:00 Ordered 50 tab PO DAILY Morphine Med 04/22/19 19:15 Ordered 15 mg PO Q4H PRN Pantoprazole [ProTONIX] Med 04/23/19 09:00 Active 40 mg PO DAILY Tamsulosin [Flomax] Med 04/23/19 09:00 Ordered 0.4 mg PO DAILY amLODIPine Med 04/23/19 09:00 Ordered 5 mg PO DAILY fentaNYL [Duragesic] Med 04/22/19 19:15 Ordered 25 mcg TOP Q72H fentaNYL [Fentanyl] Med 04/22/19 19:15 Ordered 12 mcg TRDERM Q72H Blood Culture x2 Reflex Set [OM.PC] Stat Oth 04/22/19 17:46 Ordered Code Status [Resuscitation Status] Stat Resus Stat 04/22/19 19:07 Ordered Medication Orders Fentanyl (Duragesic) 25 mcg TOP Q72H [facility] Finasteride (Proscar) 5 mg PO DAILY [facility] Levofloxacin/Dextrose 500 mg/ (Premix) 100 mls @ 100 mls/hr IV ONETIME ONE Stop: 04/22/19 19:47 Last Admin: 04/22/19 19:16 Dose: 100 mls/hr Cefepime HCl 1 gm/ Premix 50 mls @ 100 mls/hr IV Q8H [facility] Morphine Sulfate (Morphine) 15 mg PO Q4H PRN PRN Reason: Pain Non-Formulary Medication (Amlodipine) 5 mg PO DAILY [facility] Non-Formulary Medication (Fentanyl [Fentanyl]) 12 mcg TRDERM Q72H [facility] Non-Formulary Medication (Losartan Potassium) 50 tab PO DAILY [facility] Pantoprazole Sodium (Protonix) 40 mg PO DAILY [facility] Tamsulosin HCl (Flomax) 0.4 mg PO DAILY [facility] Assessment/Plan Comment:: Assessment: 1. Neutropenic Fever in the setting of #2 and #3. 2. T-cell lymphoma. 3. Renal cell carcinoma. 4. Pancytopenia. 5. Past medical history of HTN. Plan: 1. For neutropenic fever, will continue to monitor patient's vital signs and temperature. Will continue cefepime. Daily CBC and BMP. UA was negative. CXR was negative. Blood cultures pending. Patient did receive Neulasta on 03/01/19. IV fluids 125 cc/hr. 2. For PMH will continue with home medications.
[2019-04-22] MEDS ORDERED: Lidocaine/Prilocaine 2.5-2.5% Crm 5 GM Kit TOP ONE (19:23)
[2019-04-22] MEDS: Dronabinol 2.5 MG Cap PO SCH (21:33)
[2019-04-22] MEDS ORDERED: Cefepime 50 ML ONE (21:53)
[2019-04-23] MEDS: Acetaminophen 500 MG Tab PO PRN ×3 (00:21→20:11)
[2019-04-23] MEDS: Cefepime 1 GM in Premix Bag 1 BAG IV SCH ×3 (06:13→22:52)
[2019-04-23] MEDS ORDERED: Morphine 2 MG/ML Syringe IVPUSH ONE (06:28)
[2019-04-23 07:08] LABS: BLOOD UREA NITROGEN,BUN 16 mg/dL (7.0-18.0); CARBON DIOXIDE,CO2 26.6 mmol/L (21.0-32.0); CHLORIDE,CL 102 mmol/L (98-107); GLUCOSE RANDOM 114 mg/dL (74-106); POTASSIUM,K 3.7 mmol/L (3.5-5.1); SODIUM,NA 137 mmol/L (136-148)
[2019-04-23] MEDS: Pantoprazole 40 MG Tab.CR PO SCH (08:04)
[2019-04-23] MEDS: Tamsulosin 0.4 MG Cap.ER PO SCH (08:05)
[2019-04-23] MEDS: Dronabinol 2.5 MG Cap PO SCH ×2 (08:05→20:12)
[2019-04-23] MEDS: Finasteride 5 MG Tab PO SCH (08:07)
[2019-04-23] MEDS ORDERED: AMLODIPINE 5 MG PO SCH (09:00)
[2019-04-23] MEDS ORDERED: LOSARTAN POTASSIUM PO SCH (09:00)
[2019-04-23] MEDS ORDERED: Losartan 50 MG Tab PO SCH (09:08)
[2019-04-23] MEDS ORDERED: amLODIPine 5 MG Tab PO SCH (09:08)
[2019-04-23] MEDS: Losartan 50 MG Tab PO SCH (11:24)
[2019-04-23] MEDS: amLODIPine 5 MG Tab PO SCH (11:24)
[2019-04-23] MEDS ORDERED: Filgrastim 300 MCG/ML SDV SUBCUT ONE (11:50)
[2019-04-23] MEDS: Aluminum Hydroxide/Magnesium Hydroxide/Simethicone Susp 30 ML Cup PO PRN (12:16)
--- NOTE | 2019-04-23 16:36 | PCM.PN ---
- General Info Date of Service: 04/23/19 Functional Status: Reports: Pain Controlled - Review of Systems General: Reports: Fever, Fatigue. Denies: Weakness, Chills HEENT: Reports: No Symptoms Pulmonary: Reports: No Symptoms. Denies: Shortness of Breath, Cough Cardiovascular: Reports: No Symptoms. Denies: Chest Pain, Palpitations Gastrointestinal: Reports: Decreased Appetite, Diarrhea, Nausea. Denies: Constipation Genitourinary: Reports: No Symptoms Musculoskeletal: Reports: No Symptoms Neurological: Reports: Headache. Denies: Dizziness Psychiatric: Reports: No Symptoms - Patient Data Vitals - Most Recent: Last Vital Signs Temp 97.3 F 04/23/19 15:43 Pulse 94 04/23/19 15:43 Resp 16 04/23/19 15:43 BP 107/58 L 04/23/19 15:43 Pulse Ox 96 04/23/19 15:43 Weight - Most Recent: 179 lb 7.3 oz I&O - Last 24 Hours: Intake & Output 04/23/19 04/23/19 04/23/19 06:59 14:59 22:59 Intake Total 1092 13 Output Total 600 Balance 492 13 Lab Results Last 24 Hours: Laboratory Results - last 24 hr 04/22/19 04/22/19 04/22/19 Range/Units 17:45 17:45 17:56 WBC 0.15 L (4.0-11.0) K/uL RBC 3.08 L (4.50-5.90) M/uL Hgb 8.1 L (13.0-17.0) g/dL Hct 25.5 L (38.0-50.0) % MCV 82.8 (80.0-98.0) fL MCH 26.3 L (27.0-32.0) pg MCHC 31.8 (31.0-37.0) g/dL RDW Std Deviation 55.6 (28.0-62.0) fl RDW Coeff of Harika 19 H (11.0-15.0) % Plt Count 83 L (150-400) K/uL MPV 9.40 (7.40-12.00) fL Add Manual Diff YES Neutrophils % (Manual) 9 L (48.0-80.0) % Band Neutrophils % 6 % Lymphocytes % (Manual) 73 H (16.0-40.0) % Monocytes % (Manual) 9 (0.0-15.0) % Eosinophils % (Manual) 3 (0.0-7.0) % Nucleated RBC % 0.0 /100WBC Absolute Seg Neuts 0.0 L (1.4-5.7) Band Neutrophils # 0 Lymphocytes # (Manual) 0.1 L (0.6-2.4) Monocytes # (Manual) 0.0 (0.0-0.8) Eosinophils # (Manual) 0.0 (0.0-0.7) Nucleated RBCs # 0 K/uL Lactate (0.20-2.00) mmol/L Sodium 135 L (136-148) mmol/L Potassium 3.6 (3.5-5.1) mmol/L Chloride 98 (98-107) mmol/L Carbon Dioxide 26.0 (21.0-32.0) mmol/L BUN 20 H (7.0-18.0) mg/dL Creatinine 1.0 (0.8-1.3) mg/dL Est Cr Clr Drug Dosing 68.86 mL/min Estimated GFR (MDRD) > 60.0 ml/min Glucose 119 H (74-106) mg/dL Calcium 9.1 (8.5-10.1) mg/dL Total Bilirubin 1.1 H (0.2-1.0) mg/dL AST 21 (15-37) IU/L ALT 47 (14-63) IU/L Alkaline Phosphatase 81 (46-116) U/L Troponin I (0.000-0.056) ng/mL Total Protein 6.6 (6.4-8.2) g/dL Albumin 3.5 (3.4-5.0) g/dL Globulin 3.1 (2.6-4.0) g/dL Albumin/Globulin Ratio 1.1 (0.9-1.6) Urine Color YELLOW Urine Appearance CLEAR Urine pH 6.0 (5.0-8.0) Ur Specific [place] 1.015 (1.001-1.035) Urine Protein TRACE H (NEGATIVE) mg/dL Urine Glucose (UA) NEGATIVE (NEGATIVE) mg/dL Urine Ketones NEGATIVE (NEGATIVE) mg/dL Urine Occult Blood NEGATIVE (NEGATIVE) Urine Nitrite NEGATIVE (NEGATIVE) Urine Bilirubin NEGATIVE (NEGATIVE) Urine Urobilinogen 0.2 (<2.0) EU/dL Ur Leukocyte Esterase NEGATIVE (NEGATIVE) Urine RBC 0-2 (0-2/HPF) Urine WBC 0-2 (0-5/HPF) Ur Epithelial Cells RARE (NONE-FEW) Urine Bacteria FEW (NEGATIVE) Blood Type Antibody Screen Crossmatch 04/22/19 04/23/19 04/23/19 Range/Units 18:09 06:12 06:12 WBC 0.17 L (4.0-11.0) K/uL RBC 2.50 L (4.50-5.90) M/uL Hgb 6.6 L (13.0-17.0) g/dL Hct 20.7 L (38.0-50.0) % MCV 82.8 (80.0-98.0) fL MCH 26.4 L (27.0-32.0) pg MCHC 31.9 (31.0-37.0) g/dL RDW Std Deviation 55.9 (28.0-62.0) fl RDW Coeff of Harika 18 H (11.0-15.0) % Plt Count 61 L (150-400) K/uL MPV 9.30 (7.40-12.00) fL Add Manual Diff YES Neutrophils % (Manual) 16 L (48.0-80.0) % Band Neutrophils % 8 % Lymphocytes % (Manual) 66 H (16.0-40.0) % Monocytes % (Manual) 10 (0.0-15.0) % Eosinophils % (Manual) (0.0-7.0) % Nucleated RBC % 0.0 /100WBC Absolute Seg Neuts 0.0 L (1.4-5.7) Band Neutrophils # 0 Lymphocytes # (Manual) 0.1 L (0.6-2.4) Monocytes # (Manual) 0.0 (0.0-0.8) Eosinophils # (Manual) (0.0-0.7) Nucleated RBCs # 0 K/uL Lactate 1.4 (0.20-2.00) mmol/L Sodium 137 (136-148) mmol/L Potassium 3.7 (3.5-5.1) mmol/L Chloride 102 (98-107) mmol/L Carbon Dioxide 26.6 (21.0-32.0) mmol/L BUN 16 (7.0-18.0) mg/dL Creatinine 1.0 (0.8-1.3) mg/dL Est Cr Clr Drug Dosing 67.75 mL/min Estimated GFR (MDRD) > 60.0 ml/min Glucose 114 H (74-106) mg/dL Calcium 8.2 L (8.5-10.1) mg/dL Total Bilirubin 1.1 H (0.2-1.0) mg/dL AST 16 (15-37) IU/L ALT 38 (14-63) IU/L Alkaline Phosphatase 62 (46-116) U/L Troponin I (0.000-0.056) ng/mL Total Protein 5.1 L (6.4-8.2) g/dL Albumin 2.8 L (3.4-5.0) g/dL Globulin 2.3 L (2.6-4.0) g/dL Albumin/Globulin Ratio 1.2 (0.9-1.6) Urine Color Urine Appearance Urine pH (5.0-8.0) Ur Specific [place] (1.001-1.035) Urine Protein (NEGATIVE) mg/dL Urine Glucose (UA) (NEGATIVE) mg/dL Urine Ketones (NEGATIVE) mg/dL Urine Occult Blood (NEGATIVE) Urine Nitrite (NEGATIVE) Urine Bilirubin (NEGATIVE) Urine Urobilinogen (<2.0) EU/dL Ur Leukocyte Esterase (NEGATIVE) Urine RBC (0-2/HPF) Urine WBC (0-5/HPF) Ur Epithelial Cells (NONE-FEW) Urine Bacteria (NEGATIVE) Blood Type Antibody Screen Crossmatch 04/23/19 04/23/19 Range/Units 06:12 11:46 WBC (4.0-11.0) K/uL RBC (4.50-5.90) M/uL Hgb (13.0-17.0) g/dL Hct (38.0-50.0) % MCV (80.0-98.0) fL MCH (27.0-32.0) pg MCHC (31.0-37.0) g/dL RDW Std Deviation (28.0-62.0) fl RDW Coeff of Harika (11.0-15.0) % Plt Count (150-400) K/uL MPV (7.40-12.00) fL Add Manual Diff Neutrophils % (Manual) (48.0-80.0) % Band Neutrophils % % Lymphocytes % (Manual) (16.0-40.0) % Monocytes % (Manual) (0.0-15.0) % Eosinophils % (Manual) (0.0-7.0) % Nucleated RBC % /100WBC Absolute Seg Neuts (1.4-5.7) Band Neutrophils # Lymphocytes # (Manual) (0.6-2.4) Monocytes # (Manual) (0.0-0.8) Eosinophils # (Manual) (0.0-0.7) Nucleated RBCs # K/uL Lactate (0.20-2.00) mmol/L Sodium (136-148) mmol/L Potassium (3.5-5.1) mmol/L Chloride (98-107) mmol/L Carbon Dioxide (21.0-32.0) mmol/L BUN (7.0-18.0) mg/dL Creatinine (0.8-1.3) mg/dL Est Cr Clr Drug Dosing mL/min Estimated GFR (MDRD) ml/min Glucose (74-106) mg/dL Calcium (8.5-10.1) mg/dL Total Bilirubin (0.2-1.0) mg/dL AST (15-37) IU/L ALT (14-63) IU/L Alkaline Phosphatase (46-116) U/L Troponin I < 0.050 (0.000-0.056) ng/mL Total Protein (6.4-8.2) g/dL Albumin (3.4-5.0) g/dL Globulin (2.6-4.0) g/dL Albumin/Globulin Ratio (0.9-1.6) Urine Color Urine Appearance Urine pH (5.0-8.0) Ur Specific [place] (1.001-1.035) Urine Protein (NEGATIVE) mg/dL Urine Glucose (UA) (NEGATIVE) mg/dL Urine Ketones (NEGATIVE) mg/dL Urine Occult Blood (NEGATIVE) Urine Nitrite (NEGATIVE) Urine Bilirubin (NEGATIVE) Urine Urobilinogen (<2.0) EU/dL Ur Leukocyte Esterase (NEGATIVE) Urine RBC (0-2/HPF) Urine WBC (0-5/HPF) Ur Epithelial Cells (NONE-FEW) Urine Bacteria (NEGATIVE) Blood Type AB POSITIVE Antibody Screen NEGATIVE Crossmatch See Detail Darryn Results Last 24 Hours: Microbiology 04/22/19 18:45 Influenza Type A Antigen Screen - Final Nasopharyngeal Swab NEGATIVE INFLUENZA A VIRUS AG REFERENCE RANGE: NEGATIVE Influenza Type B Antigen Screen - Final NEGATIVE INFLUENZA B VIRUS AG REFERENCE RANGE: NEGATIVE Med Orders - Current: Current Medications Acetaminophen (Tylenol Extra Strength) 1,000 mg PO Q6H PRN PRN Reason: Fever Last Admin: 04/23/19 13:08 Dose: 1,000 mg Al Hydroxide/Mg Hydroxide (Mag-Al Plus) 30 ml PO Q4H PRN PRN Reason: Abdominal Pain Last Admin: 04/23/19 12:16 Dose: 30 ml Amlodipine Besylate (Norvasc) 5 mg PO DAILY [facility] Last Admin: 04/23/19 11:24 Dose: 5 mg Dronabinol (Marinol) 2.5 mg PO BID [facility] Last Admin: 04/23/19 08:05 Dose: 2.5 mg Fentanyl (Duragesic) 25 mcg TOP Q72H [facility] Finasteride (Proscar) 5 mg PO DAILY [facility] Last Admin: 04/23/19 08:07 Dose: 5 mg Cefepime HCl 1 gm/ Premix 50 mls @ 100 mls/hr IV Q8H [facility] [place] Last Admin: 04/23/19 13:10 Dose: 100 mls/hr Losartan Potassium (Cozaar) 50 mg PO DAILY [facility] [place] Last Admin: 04/23/19 11:24 Dose: 50 mg Morphine Sulfate (Morphine) 15 mg PO Q4H PRN PRN Reason: Pain Last Admin: 04/23/19 06:06 Dose: 15 mg Ondansetron HCl (Zofran) 8 mg PO Q8H PRN PRN Reason: Nausea/Vomiting Pantoprazole Sodium (Protonix) 40 mg PO DAILY [facility] [place] Last Admin: 04/23/19 08:04 Dose: 40 mg Fentanyl 12 Mcg 1 each TRDERM Q72H [facility] Tamsulosin HCl (Flomax) 0.4 mg PO DAILY [facility] [place] Last Admin: 04/23/19 08:05 Dose: 0.4 mg Discontinued Medications Acetaminophen (Tylenol Extra Strength) 1,000 mg PO ONETIME ONE Stop: 04/22/19 17:25 Last Admin: 04/22/19 17:59 Dose: 1,000 mg Amlodipine Besylate (Norvasc) 5 mg PO DAILY [facility] [place] Fentanyl (Duragesic) 25 mcg TOP Q72H [facility] [place] Last Admin: 04/22/19 23:37 Dose: Not Given Filgrastim (Neupogen) 300 mcg SUBCUT ONETIME ONE Stop: 04/23/19 11:51 Last Admin: 04/23/19 12:17 Dose: 300 mcg Cefepime HCl 2 gm/ Premix 50 mls @ 100 mls/hr IV ONETIME ONE Stop: 04/22/19 19:17 Last Admin: 04/22/19 22:01 Dose: 100 mls/hr Levofloxacin/Dextrose 500 mg/ (Premix) 100 mls @ 100 mls/hr IV ONETIME ONE Stop: 04/22/19 19:47 Last Admin: 04/22/19 19:16 Dose: 100 mls/hr Cefepime HCl 1 gm/ Premix 50 mls @ 100 mls/hr IV Q8H [facility] [place] Last Admin: 04/22/19 23:38 Dose: Not Given Levofloxacin/Dextrose 750 mg/ (Premix) 150 mls @ 100 mls/hr IV Q24H [facility] [place] Sodium Chloride (Normal Saline) 1,000 mls @ 100 mls/hr IV STAT ONE Stop: 04/23/19 05:28 Last Admin: 04/22/19 22:02 Dose: 100 mls/hr Cefepime HCl (Maxipime In D5w 2 Gm/50 Ml) Confirm Administered Dose 50 mls @ as directed .ROUTE .STK-MED ONE Stop: 04/22/19 21:54 Last Admin: 04/22/19 22:09 Dose: Not Given Sodium Chloride (Normal Saline) 1,000 mls @ 999 mls/hr IV .BOLUS ONE Stop: 04/22/19 18:45 Last Admin: 04/22/19 17:45 Dose: 999 mls/hr Lidocaine/Prilocaine (Emla Crm) 1 gm TOP ONETIME ONE Stop: 04/22/19 19:24 Last Admin: 04/22/19 20:13 Dose: 1 applic Losartan Potassium (Cozaar) 50 mg PO DAILY [facility] [place] Morphine Sulfate (Morphine) 1 mg IVPUSH ONETIME ONE Stop: 04/23/19 06:29 Last Admin: 04/23/19 06:46 Dose: 1 mg Non-Formulary Medication (Amlodipine) 5 mg PO DAILY [facility] [place] Last Admin: 04/23/19 09:11 Dose: Not Given Non-Formulary Medication (Fentanyl [Fentanyl]) 12 mcg TRDERM Q72H [facility] [place] Last Admin: 04/22/19 23:37 Dose: Not Given Non-Formulary Medication (Losartan Potassium) 50 tab PO DAILY [facility] [place] Last Admin: 04/23/19 09:12 Dose: Not Given Non-Formulary Medication (Fentanyl [Fentanyl]) 12 mcg TRDERM Q72H [facility] - Exam General: Alert, Oriented HEENT: EOMI, Mucous Membr. Moist/[place] Neck: Supple Lungs: Other (minimal/faint expiratory coarse BS ) Cardiovascular: Regular Rate, Regular Rhythm GI/Abdominal Exam: Soft, Non-Tender Skin: Warm, Dry Psy/Mental Status: Alert, Normal Affect, Normal Mood Sepsis Event Note - Evaluation Sepsis Screening Result: No Definite Risk - Focused Exam Vital Signs: Vital Signs Temp Temp Pulse Resp BP BP Pulse Ox 04/23/19 15:43 97.3 F 94 16 107/58 L 96 04/23/19 15:18 97.4 F 94 16 107/58 L 96 04/23/19 15:03 98.4 F 96 16 124/56 L 96 04/23/19 13:38 97.3 F 04/23/19 13:08 99.5 F 04/23/19 12:00 99.5 F 94 18 140/66 95 04/23/19 11:24 138/69 04/23/19 07:58 98.1 F 95 20 138/69 95 Date Exam was Performed: 04/23/19 Time Exam was Performed: 16:32 - Problem List Review Problem List Initiated/Reviewed/Updated: Yes - My Orders Last 24 Hours: My Active Orders 04/22/19 19:07 Admission Status [Patient Status] [ADT] Stat Code Status [Resuscitation Status] Stat 04/22/19 19:13 Communication Order [RC] DAILY 04/22/19 19:15 Morphine 15 mg PO Q4H PRN 04/22/19 19:25 Ondansetron [Zofran] 8 mg PO Q8H PRN 04/22/19 19:30 Acetaminophen [Tylenol Extra Strength] 1,000 mg PO Q6H PRN 04/22/19 19:51 Antiembolic Devices [RC] PER UNIT ROUTINE SCD [Sequential Compression Device] [OM.PC] Routine 04/22/19 21:00 Dronabinol [Marinol] 2.5 mg PO BID 04/23/19 06:00 Cefepime [Maxipime in D5W 1 GM/50 ML] 1 gm Premix Bag 1 bag IV Q8H 04/23/19 09:00 Finasteride [Proscar] 5 mg PO DAILY Pantoprazole [ProTONIX] 40 mg PO DAILY Tamsulosin [Flomax] 0.4 mg PO DAILY 04/23/19 11:00 Losartan [Cozaar] 50 mg PO DAILY amLODIPine [Norvasc] 5 mg PO DAILY 04/23/19 11:11 Alum Hydrox/Mag Hydrox/Simeth [Mag-Al Plus] 30 ml PO Q4H PRN 04/23/19 11:13 Transfuse Red Blood Cells [COMM] Urgent 04/23/19 11:46 RED BLOOD CELLS LP [BBK] Routine TYPE AND SCREEN [BBK] Routine 04/23/19 15:59 CXR [Chest 1V Frontal] [CR] Routine 04/23/19 16:00 Communication Order [RC] ROUTINE 04/23/19 17:00 Patient's Own Medication [Ptom] 1 each TRDERM Q72H fentaNYL [Duragesic] 25 mcg TOP Q72H 04/23/19 Breakfast Neutropenic [DIET] - Plan Plan:: Assessment: 1. Neutropenic Fever in the setting of #2 and #3. 2. T-cell lymphoma. 3. Renal cell carcinoma. 4. Pancytopenia. 5. Past medical history of HTN. Plan: 1. For neutropenic fever, will continue to monitor patient's vital signs and temperature. Will continue cefepime. Daily CBC and BMP. UA was negative. CXR was negative repeat CXR in afternoon. Blood cultures pending. Patient did receive Neulasta on 03/01/19. One dose of Neupogen today. Given 2 units of PRBC this AM; recheck H/H thereafter. Fever :acetaminophen scheduled 2. For PMH will continue with home medications.
[2019-04-23] MEDS ORDERED: FENTANYL 12 MCG TRDERM SCH ×2 (17:00)
[2019-04-23] MEDS ORDERED: Non-Formulary Medication 1 Each (Fentanyl [Fentanyl] 12 MCG) TRDERM SCH (17:00)
[2019-04-23] MEDS ORDERED: fentaNYL 25 MCG/HR Transdermal Patch TOP SCH (17:00)
--- NOTE | 2019-04-23 17:44 | CR ---
HISTORY: Shortness of breath. TECHNIQUE: Portable frontal view the chest. COMPARISON: Chest x-ray 04/22/2019. FINDINGS: Right port is unchanged. Unchanged elevation of the right hemidiaphragm. Increased opacity at the medial right lung base with obscuration of some vessel margins. No focal consolidation on the left. No pleural effusion or pneumothorax. Cardiomediastinal silhouette is unchanged. IMPRESSION: Increased opacity at the medial right lung base suspicious for pneumonia. Dictated by Sebastian Schroeder MD @ Apr 23 2019 5:43PM Signed by Dr. Sebastian Schroeder @ Apr 23 2019 5:43PM
[2019-04-23] MEDS ORDERED: Levofloxacin/Dextrose 5%-Water 750 MG in Premix Bag 1 BAG IV ONE (19:01)
[2019-04-23] MEDS ORDERED: Levofloxacin/Dextrose 5%-Water 750 MG in Premix Bag 1 BAG IV SCH (19:15)
[2019-04-24] MEDS ORDERED: Levofloxacin/Dextrose 5%-Water 750 MG in Premix Bag 1 BAG IV ONE ×2
[2019-04-24] MEDS: Cefepime 1 GM in Premix Bag 1 BAG IV SCH ×3 (06:02→21:02)
[2019-04-24 06:58] LABS: BLOOD UREA NITROGEN,BUN 13 mg/dL (7.0-18.0); CARBON DIOXIDE,CO2 27.2 mmol/L (21.0-32.0); CHLORIDE,CL 103 mmol/L (98-107); GLUCOSE RANDOM 102 mg/dL (74-106); POTASSIUM,K 3.8 mmol/L (3.5-5.1); SODIUM,NA 137 mmol/L (136-148)
[2019-04-24] MEDS: Pantoprazole 40 MG Tab.CR PO SCH (08:35)
[2019-04-24] MEDS: Tamsulosin 0.4 MG Cap.ER PO SCH (08:36)
[2019-04-24] MEDS: Losartan 50 MG Tab PO SCH (08:38)
[2019-04-24] MEDS: Dronabinol 2.5 MG Cap PO SCH ×2 (08:39→20:55)
[2019-04-24] MEDS: amLODIPine 5 MG Tab PO SCH (08:39)
[2019-04-24] MEDS: Finasteride 5 MG Tab PO SCH (08:42)
--- NOTE | 2019-04-24 13:12 | PCM.PN ---
- General Info Date of Service: 04/24/19 Admission Dx/Problem (Free Text): Admission Diagnosis/Problem Admission Diagnosis/Problem Neutropenia - Review of Systems General: Denies: Fever, Weakness HEENT: Denies: Dysphasia, Ear Pain Pulmonary: Denies: Shortness of Breath, Pleuritic Chest Pain Cardiovascular: Denies: Chest Pain, Palpitations Gastrointestinal: Denies: Abdominal Pain, Constipation Genitourinary: Denies: Dysuria, Frequency Musculoskeletal: Denies: Neck Pain, Shoulder Pain Skin: Denies: Cyanosis, Jaundice - Patient Data Vitals - Most Recent: Last Vital Signs Temp 36.7 C 04/24/19 12:00 Pulse 95 04/24/19 12:00 Resp 20 04/24/19 12:00 BP 120/75 04/24/19 12:00 Pulse Ox 95 04/24/19 12:00 Weight - Most Recent: 81.4 kg I&O - Last 24 Hours: Intake & Output 04/23/19 04/24/19 04/24/19 22:59 06:59 14:59 Intake Total 1227 550 Output Total 500 Balance 727 550 Lab Results Last 24 Hours: Laboratory Results - last 24 hr 04/23/19 04/23/19 04/24/19 Range/Units 11:46 23:15 06:23 WBC 0.71 L (4.0-11.0) K/uL RBC 2.77 L (4.50-5.90) M/uL Hgb 7.0 L 7.4 L (13.0-17.0) g/dL Hct 21.3 L 22.6 L (38.0-50.0) % MCV 81.6 (80.0-98.0) fL MCH 26.7 L (27.0-32.0) pg MCHC 32.7 (31.0-37.0) g/dL RDW Std Deviation 53.5 (28.0-62.0) fl RDW Coeff of Harika 18 H (11.0-15.0) % Plt Count 52 L (150-400) K/uL MPV 10.40 (7.40-12.00) fL Add Manual Diff YES Neutrophils % (Manual) 30 L (48.0-80.0) % Band Neutrophils % 38 % Lymphocytes % (Manual) 20 (16.0-40.0) % Monocytes % (Manual) 10 (0.0-15.0) % Metamyelocytes % 2 % Nucleated RBC % 0.0 /100WBC Absolute Seg Neuts 0.2 L (1.4-5.7) Band Neutrophils # 0.3 Lymphocytes # (Manual) 0.1 L (0.6-2.4) Monocytes # (Manual) 0.1 (0.0-0.8) Absolute Metamyelocyte 0 Nucleated RBCs # 0 K/uL Sodium (136-148) mmol/L Potassium (3.5-5.1) mmol/L Chloride (98-107) mmol/L Carbon Dioxide (21.0-32.0) mmol/L BUN (7.0-18.0) mg/dL Creatinine (0.8-1.3) mg/dL Est Cr Clr Drug Dosing mL/min Estimated GFR (MDRD) ml/min Glucose (74-106) mg/dL Calcium (8.5-10.1) mg/dL Total Bilirubin (0.2-1.0) mg/dL AST (15-37) IU/L ALT (14-63) IU/L Alkaline Phosphatase (46-116) U/L Total Protein (6.4-8.2) g/dL Albumin (3.4-5.0) g/dL Globulin (2.6-4.0) g/dL Albumin/Globulin Ratio (0.9-1.6) Blood Type AB POSITIVE Antibody Screen NEGATIVE Crossmatch See Detail 04/24/19 Range/Units 06:23 WBC (4.0-11.0) K/uL RBC (4.50-5.90) M/uL Hgb (13.0-17.0) g/dL Hct (38.0-50.0) % MCV (80.0-98.0) fL MCH (27.0-32.0) pg MCHC (31.0-37.0) g/dL RDW Std Deviation (28.0-62.0) fl RDW Coeff of Harika (11.0-15.0) % Plt Count (150-400) K/uL MPV (7.40-12.00) fL Add Manual Diff Neutrophils % (Manual) (48.0-80.0) % Band Neutrophils % % Lymphocytes % (Manual) (16.0-40.0) % Monocytes % (Manual) (0.0-15.0) % Metamyelocytes % % Nucleated RBC % /100WBC Absolute Seg Neuts (1.4-5.7) Band Neutrophils # Lymphocytes # (Manual) (0.6-2.4) Monocytes # (Manual) (0.0-0.8) Absolute Metamyelocyte Nucleated RBCs # K/uL Sodium 137 (136-148) mmol/L Potassium 3.8 (3.5-5.1) mmol/L Chloride 103 (98-107) mmol/L Carbon Dioxide 27.2 (21.0-32.0) mmol/L BUN 13 (7.0-18.0) mg/dL Creatinine 1.0 (0.8-1.3) mg/dL Est Cr Clr Drug Dosing 67.75 mL/min Estimated GFR (MDRD) > 60.0 ml/min Glucose 102 (74-106) mg/dL Calcium 8.1 L (8.5-10.1) mg/dL Total Bilirubin 0.9 (0.2-1.0) mg/dL AST 20 (15-37) IU/L ALT 41 (14-63) IU/L Alkaline Phosphatase 53 (46-116) U/L Total Protein 4.9 L (6.4-8.2) g/dL Albumin 2.5 L (3.4-5.0) g/dL Globulin 2.4 L (2.6-4.0) g/dL Albumin/Globulin Ratio 1.0 (0.9-1.6) Blood Type Antibody Screen Crossmatch Darryn Results Last 24 Hours: Microbiology 04/22/19 18:09 Aerobic Blood Culture - Preliminary Blood - Venous - Lab Draw NO GROWTH AFTER 1 DAY Anaerobic Blood Culture - Preliminary NO GROWTH AFTER 1 DAY 04/22/19 17:45 Aerobic Blood Culture - Preliminary Blood - Venous NO GROWTH AFTER 1 DAY Anaerobic Blood Culture - Preliminary NO GROWTH AFTER 1 DAY Med Orders - Current: Current Medications Acetaminophen (Tylenol Extra Strength) 1,000 mg PO Q6H PRN PRN Reason: Fever Last Admin: 04/23/19 20:11 Dose: 1,000 mg Al Hydroxide/Mg Hydroxide (Mag-Al Plus) 30 ml PO Q4H PRN PRN Reason: Abdominal Pain Last Admin: 04/23/19 12:16 Dose: 30 ml Amlodipine Besylate (Norvasc) 5 mg PO DAILY [facility] Last Admin: 04/24/19 08:39 Dose: 5 mg Dronabinol (Marinol) 2.5 mg PO BID [facility] Last Admin: 04/24/19 08:39 Dose: 2.5 mg Fentanyl (Duragesic) 25 mcg TOP Q72H [facility] Last Admin: 04/23/19 17:50 Dose: 25 mcg Finasteride (Proscar) 5 mg PO DAILY [facility] Last Admin: 04/24/19 08:42 Dose: 5 mg Cefepime HCl 1 gm/ Premix 50 mls @ 100 mls/hr IV Q8H [facility] Last Admin: 04/24/19 06:02 Dose: 100 mls/hr Losartan Potassium (Cozaar) 50 mg PO DAILY [facility] Last Admin: 04/24/19 08:38 Dose: 50 mg Morphine Sulfate (Morphine) 15 mg PO Q4H PRN PRN Reason: Pain Last Admin: 04/23/19 06:06 Dose: 15 mg Ondansetron HCl (Zofran) 8 mg PO Q8H PRN PRN Reason: Nausea/Vomiting Pantoprazole Sodium (Protonix) 40 mg PO DAILY [facility] Last Admin: 04/24/19 08:35 Dose: 40 mg Fentanyl 12 Mcg (Own Med) 1 each TRDERM Q72H [facility] Last Admin: 04/23/19 17:51 Dose: 1 each Tamsulosin HCl (Flomax) 0.4 mg PO DAILY [facility] Last Admin: 04/24/19 08:36 Dose: 0.4 mg Discontinued Medications Acetaminophen (Tylenol Extra Strength) 1,000 mg PO ONETIME ONE Stop: 04/22/19 17:25 Last Admin: 04/22/19 17:59 Dose: 1,000 mg Amlodipine Besylate (Norvasc) 5 mg PO DAILY [facility] Fentanyl (Duragesic) 25 mcg TOP Q72H [facility] Last Admin: 04/22/19 23:37 Dose: Not Given Filgrastim (Neupogen) 300 mcg SUBCUT ONETIME ONE Stop: 04/23/19 11:51 Last Admin: 04/23/19 12:17 Dose: 300 mcg Cefepime HCl 2 gm/ Premix 50 mls @ 100 mls/hr IV ONETIME ONE Stop: 04/22/19 19:17 Last Admin: 04/22/19 22:01 Dose: 100 mls/hr Levofloxacin/Dextrose 500 mg/ (Premix) 100 mls @ 100 mls/hr IV ONETIME ONE Stop: 04/22/19 19:47 Last Admin: 04/22/19 19:16 Dose: 100 mls/hr Cefepime HCl 1 gm/ Premix 50 mls @ 100 mls/hr IV Q8H [facility] Last Admin: 04/22/19 23:38 Dose: Not Given Levofloxacin/Dextrose 750 mg/ (Premix) 150 mls @ 100 mls/hr IV Q24H [facility] Sodium Chloride (Normal Saline) 1,000 mls @ 100 mls/hr IV STAT ONE Stop: 04/23/19 05:28 Last Admin: 04/22/19 22:02 Dose: 100 mls/hr Cefepime HCl (Maxipime In D5w 2 Gm/50 Ml) Confirm Administered Dose 50 mls @ as directed .ROUTE .STK-MED ONE Stop: 04/22/19 21:54 Last Admin: 04/22/19 22:09 Dose: Not Given Sodium Chloride (Normal Saline) 1,000 mls @ 999 mls/hr IV .BOLUS ONE Stop: 04/22/19 18:45 Last Admin: 04/22/19 17:45 Dose: 999 mls/hr Levofloxacin/Dextrose 750 mg/ (Premix) 150 mls @ 100 mls/hr IV ONETIME ONE Stop: 04/23/19 20:30 Last Admin: 04/23/19 21:42 Dose: Not Given Levofloxacin/Dextrose 750 mg/ (Premix) 150 mls @ 100 mls/hr IV ONETIME ONE Stop: 04/24/19 01:29 Last Admin: 04/23/19 23:46 Dose: 100 mls/hr Lidocaine/Prilocaine (Emla Crm) 1 gm TOP ONETIME ONE Stop: 04/22/19 19:24 Last Admin: 04/22/19 20:13 Dose: 1 applic Losartan Potassium (Cozaar) 50 mg PO DAILY [facility] Morphine Sulfate (Morphine) 1 mg IVPUSH ONETIME ONE Stop: 04/23/19 06:29 Last Admin: 04/23/19 06:46 Dose: 1 mg Non-Formulary Medication (Amlodipine) 5 mg PO DAILY [facility] Last Admin: 04/23/19 09:11 Dose: Not Given Non-Formulary Medication (Fentanyl [Fentanyl]) 12 mcg TRDERM Q72H [facility] Last Admin: 04/22/19 23:37 Dose: Not Given Non-Formulary Medication (Losartan Potassium) 50 tab PO DAILY [facility] Last Admin: 04/23/19 09:12 Dose: Not Given Non-Formulary Medication (Fentanyl [Fentanyl]) 12 mcg TRDERM Q72H [facility] Fentanyl 12 Mcg 1 each TRDERM Q72H [facility] Last Admin: 04/23/19 17:59 Dose: Not Given - Exam General: Alert, Oriented Neck: Supple Lungs: Clear to Auscultation, Normal Respiratory Effort Cardiovascular: Regular Rate, Regular Rhythm GI/Abdominal Exam: Normal Bowel Sounds, Soft, Non-Tender Extremities: Normal Inspection, Normal Range of Motion Peripheral Pulses: 3+: Dorsalis Pedis (L), Dorsalis Pedis (R) Skin: Warm Sepsis Event Note - Evaluation Sepsis Screening Result: No Definite Risk - Focused Exam Vital Signs: Vital Signs Temp Pulse Resp BP BP Pulse Ox 04/24/19 12:00 36.7 C 95 20 120/75 95 04/24/19 08:57 37.1 C 04/24/19 08:39 116/59 L 04/24/19 08:38 116/59 L 04/24/19 07:52 37.2 C 89 20 116/59 L 95 04/24/19 04:34 36.5 C 86 18 108/62 96 Date Exam was Performed: 04/24/19 Time Exam was Performed: 13:07 - Problem List & Annotations (1) Chemotherapy induced neutropenia SNOMED Code(s): 157189478 Code(s): D70.1 - AGRANULOCYTOSIS SECONDARY TO CANCER CHEMOTHERAPY; T45.1X5A - ADVERSE EFFECT OF ANTINEOPLASTIC AND IMMUNOSUP DRUGS, INIT Status: Acute Current Visit: Yes (2) Fever and chills SNOMED Code(s): 209732519 Code(s): R50.9 - FEVER, UNSPECIFIED Status: Acute Current Visit: Yes (3) Pneumonia SNOMED Code(s): 419853462 Code(s): J18.9 - PNEUMONIA, UNSPECIFIED ORGANISM Status: Acute Current Visit: Yes - Problem List Review Problem List Initiated/Reviewed/Updated: Yes - Plan Plan:: Assessment: 1. Neutropenic Fever in the setting of #2 and #3. 2. T-cell lymphoma. 3. Renal cell carcinoma. 4. Pancytopenia. 5. Past medical history of HTN. 6.Anemia Plan: Repeat Xray shows PNA S/p 2 PRBC transfusion, cont to monitor Neutropenia improving but still very low WBC count, will continue to monitor patient's vital signs and temperature, afebrile last 48 hours Will continue cefepime for now. f/u on cultures, negative so far
[2019-04-24] MEDS: Aluminum Hydroxide/Magnesium Hydroxide/Simethicone Susp 30 ML Cup PO PRN (20:55)
[2019-04-25] MEDS: Cefepime 1 GM in Premix Bag 1 BAG IV SCH ×2 (05:05→16:08)
[2019-04-25 06:27] LABS: BLOOD UREA NITROGEN,BUN 15 mg/dL (7.0-18.0); CARBON DIOXIDE,CO2 28.1 mmol/L (21.0-32.0); CHLORIDE,CL 100 mmol/L (98-107); GLUCOSE RANDOM 106 mg/dL (74-106); POTASSIUM,K 3.7 mmol/L (3.5-5.1); SODIUM,NA 136 mmol/L (136-148)
[2019-04-25 07:43] VITALS: PULSE 89
[2019-04-25] MEDS: Losartan 50 MG Tab PO SCH (08:22)
[2019-04-25] MEDS: Tamsulosin 0.4 MG Cap.ER PO SCH (08:22)
[2019-04-25] MEDS: amLODIPine 5 MG Tab PO SCH (08:23)
[2019-04-25] MEDS: Pantoprazole 40 MG Tab.CR PO SCH (08:23)
[2019-04-25] MEDS: Dronabinol 2.5 MG Cap PO SCH (08:24)
[2019-04-25] MEDS: Finasteride 5 MG Tab PO SCH (08:28)
[2019-04-25] MEDS ORDERED: Levofloxacin 250 MG Tab PO ONE (11:02)
[2019-04-25] MEDS ORDERED: Filgrastim 300 MCG/ML SDV SUBCUT STA (11:05)
[2019-04-25 12:22] VITALS: BP 123/70
--- NOTE | 2019-04-25 15:26 | PCM.DCSUM1 ---
Discharge Summary - Hospital Course Free Text/Narrative:: Discharge summary Admission diagnoses: Neutropenic fever Past medical history: T-cell lymphoma/renal cell carcinoma/hypertension Consultations: None Procedures: None Hospital course: Patient is a 69-year-old male with significant past medical history of T-cell lymphoma, renal cell carcinoma on chemotherapy; last session of chemotherapy 8 days prior to admission; patient endorsed a fever 102 at home and presented to the emergency department. Patient was placed on neutropenic precautions; cefepime; and given 1 dose of Levaquin for concerns of a right middle lobe pneumonia. Patient was also found to be pancytopenic: Received 2 units of PRBC, was also given 1 dose of Neupogen. Serial labs throughout stay showed mild increase in absolute neutrophil count; no recorded fevers; and patient medically stable. Repeat chest x-ray suggested right middle lobe pneumonia and patient was disc charged on Levaquin 750 daily for additional 7 days. Patient was advised to follow-up with his oncologist as scheduled. Patient also educated on returning if symptoms of fever, chills, body aches, diarrhea develop; with concerns for C. difficile secondary to use of antibiotics. Patient on day of discharge with stable, afebrile. Discharge condition: Stable Disposition: Home Discharge medications: Home medications plus Levaquin 750 Follow-up: PCP. Oncology. - Discharge Data Discharge Date: 04/25/19 Discharge Disposition: Home, Self-Care 01 Condition: Stable - Referral to Home Health Primary Care Physician: Phil Murphy NP - Patient Instructions Notify Provider of: Fever, Increased Pain, Nausea and/or Vomiting Other/Special Instructions: If Worsening Diarrhea develops; contact your provider or proceed to the ED. Follow up with your oncologist as scheduled and your PCP - Discharge Plan Prescriptions/Med Rec: Levofloxacin [Levaquin] 750 mg PO DAILY 7 Days #7 tablet Home Medications: Home Meds Losartan Potassium 50 tab PO DAILY 03/14/16 [History] amLODIPine [Norvasc] 5 mg PO DAILY 03/14/16 [History] Finasteride 5 mg PO DAILY 06/15/17 [History] Morphine 15 mg PO Q4H PRN 02/17/19 [History] fentaNYL [Fentanyl] 12 mcg TRDERM Q72H MDD 37.5 mcg/hr 02/24/19 [History] fentaNYL [Duragesic] 25 mcg TD Q72H MDD 37.5mcg/hr 03/10/19 [History] Tamsulosin HCl [Flomax] 0.4 mg PO DAILY 03/11/19 [History] Alum Hydrox/Mag Hydrox/Simeth [Mag-Al Plus] 30 ml PO Q4H PRN cup 04/25/19 [Rx] Levofloxacin [Levaquin] 750 mg PO DAILY 7 Days #7 tablet 04/25/19 [Rx] Patient Handouts: Levofloxacin tablets, Neutropenia Referrals: Mariya Jones MD [Ordering Only Provider] - 05/04/19 (Arrive on the to get your lab draws. ) Phil Murphy NP [Primary Care Provider] - - Discharge Summary/Plan Comment DC Time >30 min.: No - Patient Data Vitals - Most Recent: Last Vital Signs Temp 97.3 F 04/25/19 12:21 Pulse 89 04/25/19 12:21 Resp 16 04/25/19 12:21 BP 123/70 04/25/19 12:21 Pulse Ox 94 L 04/25/19 12:21 Weight - Most Recent: 179 lb 7.3 oz I&O - Last 24 hours: Intake & Output 04/25/19 04/25/19 04/25/19 06:59 14:59 22:59 Intake Total 500 Balance 500 Lab Results - Last 24 hrs: Laboratory Results - last 24 hr 04/23/19 04/25/19 04/25/19 Range/Units 20:45 05:52 05:52 WBC 1.00 L (4.0-11.0) K/uL RBC 2.91 L (4.50-5.90) M/uL Hgb 7.8 L (13.0-17.0) g/dL Hct 23.8 L (38.0-50.0) % MCV 81.8 (80.0-98.0) fL MCH 26.8 L (27.0-32.0) pg MCHC 32.8 (31.0-37.0) g/dL RDW Std Deviation 53.5 (28.0-62.0) fl RDW Coeff of Harika 18 H (11.0-15.0) % Plt Count 63 L (150-400) K/uL MPV 9.80 (7.40-12.00) fL Add Manual Diff YES Neutrophils % (Manual) 38 L (48.0-80.0) % Band Neutrophils % 30 % Lymphocytes % (Manual) 20 (16.0-40.0) % Monocytes % (Manual) 10 (0.0-15.0) % Metamyelocytes % 2 % Nucleated RBC % 0.0 /100WBC Absolute Seg Neuts 0.4 L (1.4-5.7) Band Neutrophils # 0.3 Lymphocytes # (Manual) 0.2 L (0.6-2.4) Monocytes # (Manual) 0.1 (0.0-0.8) Absolute Metamyelocyte 0 Nucleated RBCs # 0 K/uL Sodium 136 (136-148) mmol/L Potassium 3.7 (3.5-5.1) mmol/L Chloride 100 (98-107) mmol/L Carbon Dioxide 28.1 (21.0-32.0) mmol/L BUN 15 (7.0-18.0) mg/dL Creatinine 1.1 (0.8-1.3) mg/dL Est Cr Clr Drug Dosing 61.59 mL/min Estimated GFR (MDRD) > 60.0 ml/min Glucose 106 (74-106) mg/dL Calcium 8.3 L (8.5-10.1) mg/dL Phosphorus 2.9 (2.6-4.7) mg/dL Magnesium 1.8 (1.8-2.4) mg/dL Tx Rx Implicated Unit 1 [id number] Unit 1 Component RBC Pre-Trans Vis Hemolysis NEGATIVE Pre-Trans Icterus NEGATIVE Post-Trans Blood Type AB POSTIIVE Post-Tx Visible Hemolys NEGATIVE Post-Trans Icterus NEGATIVE Post-Trans LAMONT Poly NEGATIVE Reaction Interpretation NON-HEM TRANSF RX JEREMIAS Results - Last 24 hrs: Microbiology 04/22/19 18:09 Aerobic Blood Culture - Preliminary Blood - Venous - Lab Draw NO GROWTH AFTER 2 DAYS Anaerobic Blood Culture - Preliminary NO GROWTH AFTER 2 DAYS 04/22/19 17:45 Aerobic Blood Culture - Preliminary Blood - Venous NO GROWTH AFTER 2 DAYS Anaerobic Blood Culture - Preliminary NO GROWTH AFTER 2 DAYS Med Orders - Current: Current Medications Acetaminophen (Tylenol Extra Strength) 1,000 mg PO Q6H PRN PRN Reason: Fever Last Admin: 04/23/19 20:11 Dose: 1,000 mg Al Hydroxide/Mg Hydroxide (Mag-Al Plus) 30 ml PO Q4H PRN PRN Reason: Abdominal Pain Last Admin: 04/24/19 20:55 Dose: 30 ml Amlodipine Besylate (Norvasc) 5 mg PO DAILY [facility] Last Admin: 04/25/19 08:23 Dose: 5 mg Dronabinol (Marinol) 2.5 mg PO BID [facility] Last Admin: 04/25/19 08:24 Dose: 2.5 mg Fentanyl (Duragesic) 25 mcg TOP Q72H [facility] Last Admin: 04/23/19 17:50 Dose: 25 mcg Fentanyl (Duragesic) 12 mcg TRDERM Q72H [facility] Finasteride (Proscar) 5 mg PO DAILY [facility] Last Admin: 04/25/19 08:28 Dose: 5 mg Cefepime HCl 1 gm/ Premix 50 mls @ 100 mls/hr IV Q8H [facility] Last Admin: 04/25/19 05:05 Dose: 100 mls/hr Losartan Potassium (Cozaar) 50 mg PO DAILY [facility] Last Admin: 04/25/19 08:22 Dose: 50 mg Morphine Sulfate (Morphine) 15 mg PO Q4H PRN PRN Reason: Pain Last Admin: 04/23/19 06:06 Dose: 15 mg Ondansetron HCl (Zofran) 8 mg PO Q8H PRN PRN Reason: Nausea/Vomiting Pantoprazole Sodium (Protonix) 40 mg PO DAILY [facility] Last Admin: 04/25/19 08:23 Dose: 40 mg Tamsulosin HCl (Flomax) 0.4 mg PO DAILY [facility] Last Admin: 04/25/19 08:22 Dose: 0.4 mg Discontinued Medications Acetaminophen (Tylenol Extra Strength) 1,000 mg PO ONETIME ONE Stop: 04/22/19 17:25 Last Admin: 04/22/19 17:59 Dose: 1,000 mg Amlodipine Besylate (Norvasc) 5 mg PO DAILY [facility] Fentanyl (Duragesic) 25 mcg TOP Q72H [facility] Last Admin: 04/22/19 23:37 Dose: Not Given Filgrastim (Neupogen) 300 mcg SUBCUT ONETIME ONE Stop: 04/23/19 11:51 Last Admin: 04/23/19 12:17 Dose: 300 mcg Filgrastim (Neupogen) 300 mcg SUBCUT NOW STA Stop: 04/25/19 11:06 Last Admin: 04/25/19 12:24 Dose: 300 mcg Cefepime HCl 2 gm/ Premix 50 mls @ 100 mls/hr IV ONETIME ONE Stop: 04/22/19 19:17 Last Admin: 04/22/19 22:01 Dose: 100 mls/hr Levofloxacin/Dextrose 500 mg/ (Premix) 100 mls @ 100 mls/hr IV ONETIME ONE Stop: 04/22/19 19:47 Last Admin: 04/22/19 19:16 Dose: 100 mls/hr Cefepime HCl 1 gm/ Premix 50 mls @ 100 mls/hr IV Q8H [facility] Last Admin: 04/22/19 23:38 Dose: Not Given Levofloxacin/Dextrose 750 mg/ (Premix) 150 mls @ 100 mls/hr IV Q24H [facility] Sodium Chloride (Normal Saline) 1,000 mls @ 100 mls/hr IV STAT ONE Stop: 04/23/19 05:28 Last Admin: 04/22/19 22:02 Dose: 100 mls/hr Cefepime HCl (Maxipime In D5w 2 Gm/50 Ml) Confirm Administered Dose 50 mls @ as directed .ROUTE .STK-MED ONE Stop: 04/22/19 21:54 Last Admin: 04/22/19 22:09 Dose: Not Given Sodium Chloride (Normal Saline) 1,000 mls @ 999 mls/hr IV .BOLUS ONE Stop: 04/22/19 18:45 Last Admin: 04/22/19 17:45 Dose: 999 mls/hr Levofloxacin/Dextrose 750 mg/ (Premix) 150 mls @ 100 mls/hr IV ONETIME ONE Stop: 04/23/19 20:30 Last Admin: 04/23/19 21:42 Dose: Not Given Levofloxacin/Dextrose 750 mg/ (Premix) 150 mls @ 100 mls/hr IV ONETIME ONE Stop: 04/24/19 01:29 Last Admin: 04/23/19 23:46 Dose: 100 mls/hr Levofloxacin (Levaquin) 750 mg PO ONETIME ONE Stop: 04/25/19 11:03 Last Admin: 04/25/19 12:23 Dose: 750 mg Lidocaine/Prilocaine (Emla Crm) 1 gm TOP ONETIME ONE Stop: 04/22/19 19:24 Last Admin: 04/22/19 20:13 Dose: 1 applic Losartan Potassium (Cozaar) 50 mg PO DAILY [facility] Morphine Sulfate (Morphine) 1 mg IVPUSH ONETIME ONE Stop: 04/23/19 06:29 Last Admin: 04/23/19 06:46 Dose: 1 mg Non-Formulary Medication (Amlodipine) 5 mg PO DAILY [facility] Last Admin: 04/23/19 09:11 Dose: Not Given Non-Formulary Medication (Fentanyl [Fentanyl]) 12 mcg TRDERM Q72H [facility] Last Admin: 04/22/19 23:37 Dose: Not Given Non-Formulary Medication (Losartan Potassium) 50 tab PO DAILY [facility] Last Admin: 04/23/19 09:12 Dose: Not Given Non-Formulary Medication (Fentanyl [Fentanyl]) 12 mcg TRDERM Q72H [facility] Fentanyl 12 Mcg 1 each TRDERM Q72H [facility] Last Admin: 04/23/19 17:59 Dose: Not Given Fentanyl 12 Mcg (Own Med) 1 each TRDERM Q72H [facility] Last Admin: 04/23/19 17:51 Dose: 1 each
[2019-04-26] MEDS ORDERED: FENTANYL 12 MCG TRDERM SCH (17:00)
== END 2019-04-25 14:00 | disposition home or self-care (01) | DRG 808 ==
LOC: MW.ED 15:37 → MW.MS 19:07
PROVIDERS: ADMIT Internal Medicine; ATTEND Internal Medicine
PROC: 30233N1 Transfusion of Nonautologous Red Blood Cells into Peripheral Vein, Percutaneous Approach (ICD-10-PCS; principal; 2019-04-23)
DX: D70.1 Agranulocytosis secondary to cancer chemotherapy (principal); J18.9 Pneumonia, unspecified organism; C86.6 Primary cutaneous CD30-positive T-cell proliferations; C85.90 Non-Hodgkin lymphoma, unspecified, unspecified site; C64.9 Malignant neoplasm of unspecified kidney, except renal pelvis; D61.818 Other pancytopenia; T45.1X5A Adverse effect of antineoplastic and immunosuppressive drugs, initial encounter; H54.7 Unspecified visual loss; Z85.528 Personal history of other malignant neoplasm of kidney; Z92.21 Personal history of antineoplastic chemotherapy; E78.00 Pure hypercholesterolemia, unspecified; Z86.14 Personal history of Methicillin resistant Staphylococcus aureus infection; I10 Essential (primary) hypertension; I49.9 Cardiac arrhythmia, unspecified; N40.0 Benign prostatic hyperplasia without lower urinary tract symptoms; Z79.899 Other long term (current) drug therapy
CPT/HCPCS: 36415; 71046; 80053; 81001; 83605; 85025; 87040 ×2; 87804 ×2; A9270; J7030; 36430; 71045; 71045-26; 80048; 83735; 84100; 84484; 85014; 85018; 86850; 86900; 86901; 86920; 86921; 86922; 93005; 96360; 99283; 99284-25; J0692; J1447; J1956; J2270; P9016; Q0167

== ENCOUNTER 2019-05-03 21:59 | Emergency (ER) | payer OTHER, MEDICARE ==
[2019-05-03] MEDS ORDERED: Sodium Chloride 0.9% 1,000 ML IV ONE (22:20)
[2019-05-03 22:56] LABS: CARBON DIOXIDE,CO2 25.4 mmol/L (21.0-32.0); POTASSIUM,K 4.3 mmol/L (3.5-5.1)
--- NOTE | 2019-05-03 22:58 | CR ---
INDICATION: Fever COMPARISON: 04/23/2019, 04/22/2019, 03/09/2018 FINDINGS: PA and lateral views of the chest were obtained. The previously seen mild patchy right infrahilar infiltrate has resolved. There continues to be mild linear density in the left lateral lower chest, consistent with scarring from previous inflammatory disease. During the interval, a tiny right pleural effusion has developed. There continues to be mild elevation of the right hemidiaphragm. There continues to be fullness of the inferior right hilum, suggesting adenopathy. The rest of the chest remains clear. Again seen is a right internal jugular infusion port with its tip in satisfactory position in the superior vena cava at the cavoatrial junction. There is no sign of pneumothorax on the right. The heart remains normal in size. The mediastinum is normal in appearance. The osseous structures are normal in appearance for the patient`s age. IMPRESSION: New small right pleural effusion without definite right lower lobe infiltrate. Resolution of previously seen mild right infrahilar infiltrate. Continued fullness of the inferior right hilum consistent with adenopathy. Stable mild linear scarring in the left lateral lower lung. Dictated by Leander Street MD @ May 03 2019 10:50PM Signed by Dr. Leander Street @ May 03 2019 10:56PM
[2019-05-04] MEDS ORDERED: Ibuprofen 800 MG Tab PO ONE (00:09)
[2019-05-04] MEDS ORDERED: Acetaminophen 500 MG Tab PO ONE (00:10)
--- NOTE | 2019-05-04 00:42 | EDM.PDOC ---
ED HPI GENERAL MEDICAL PROBLEM - General Chief Complaint: Fever Stated Complaint: FEVER Time Seen by Provider: 05/03/19 22:30 - History of Present Illness INITIAL COMMENTS - FREE TEXT/NARRATIVE: The patient is a 69-year-old male with renal carcinoma and leukemia who presents to the ER secondary to a fever. The patient was recently diagnosed with pneumonia although he never had any coughing or shortness of breath. He had a fever and was worked up in the ER and they found an opacity on the chest x -ray and nothing also he presumed he probably had a pneumonia even though the patient was asymptomatic. The patient was also neutropenic with a reported white blood cell count of 0.1 and anemic and had a transfusion in the hospital. Eventually patient improved and was discharged home. The patient states that other than a very mild rhinorrhea, he denies any other symptoms. He denies any cough he has no shortness of breath, no abdominal pain, no vomiting or diarrhea , no unusual rash, no headaches, no neck pain, no other acute complaints. - Related Data Allergies Allergy/AdvReac Type Severity Reaction Status Date / Time No Known Allergies Allergy Verified 05/03/19 22:16 Home Meds: Home Meds Losartan Potassium 50 tab PO DAILY 03/14/16 [History] amLODIPine [Norvasc] 5 mg PO DAILY 03/14/16 [History] Finasteride 5 mg PO DAILY 06/15/17 [History] Morphine 15 mg PO Q4H PRN 02/17/19 [History] fentaNYL [Fentanyl] 12 mcg TRDERM Q72H MDD 37.5 mcg/hr 02/24/19 [History] fentaNYL [Duragesic] 25 mcg TD Q72H MDD 37.5mcg/hr 03/10/19 [History] Tamsulosin HCl [Flomax] 0.4 mg PO DAILY 03/11/19 [History] Alum Hydrox/Mag Hydrox/Simeth [Mag-Al Plus] 30 ml PO Q4H PRN cup 04/25/19 [Rx] Levofloxacin [Levaquin] 750 mg PO DAILY 7 Days #7 tablet 04/25/19 [Rx] Past Medical History HEENT History: Reports: Impaired Vision Other HEENT History: wears reading glasses Cardiovascular History: Reports: Arrhythmia, High Cholesterol, Hypertension Respiratory History: Reports: Other (See Below) Other Respiratory History: over 1 week ago was prescribed inhaler for cough and congestion, no problems now Gastrointestinal History: Reports: None Genitourinary History: Reports: BPH, Other (See Below) Other Genitourinary History: kidney cancer Musculoskeletal History: Reports: Fracture Neurological History: Reports: Vertigo Other Neuro History: hx of motion sickness, hx of vertigo Psychiatric History: Reports: None Endocrine/Metabolic History: Reports: None Hematologic History: Reports: None Immunologic History: Reports: None Oncologic (Cancer) History: Reports: Other (See Below) Other Oncologic History: T-cell lymphoma CD30+ (positive), kidney cancer. Dermatologic History: Reports: None - Infectious Disease History Infectious Disease History: Reports: None - Past Surgical History Head Surgeries/Procedures: Reports: None HEENT Surgical History: Reports: None Cardiovascular Surgical History: Reports: None Respiratory Surgical History: Reports: None GI Surgical History: Reports: None Male Surgical History: Reports: None Endocrine Surgical History: Reports: None Neurological Surgical History: Reports: None Musculoskeletal Surgical History: Reports: Arthroscopic Knee, ORIF Other Musculoskeletal Surgeries/Procedures:: ORIF left ring finger with pin removal Oncologic Surgical History: Reports: Bone Marrow Aspiration Dermatological Surgical History: Reports: None Social & Family History - Family History Family Medical History: Noncontributory - Tobacco Use Smoking Status *Q: Never Smoker - Caffeine Use Caffeine Use: Reports: Coffee - Recreational Drug Use Recreational Drug Use: No ED ROS GENERAL - Review of Systems Review Of Systems: See Below (Positive for fever, positive for mild rhinorrhea, negative for shortness of breath, negative for vomiting, negative for diarrhea, negative for abdominal pain, further pertinent positives and negatives are per HPI) ED EXAM, SEPSIS - Physical Exam Exam: See Below General Appearance: Alert, No Apparent Distress, Other (Broad but nontoxic and very energetic) Eye Exam: Bilateral Eye: EOMI, PERRL Ears: Normal External Exam Nose: Normal Inspection Throat/Mouth: Normal Inspection, Normal Oropharynx, Normal Voice, No Airway Compromise Head: Atraumatic, Normocephalic. No: Facial Swelling Neck: Normal Inspection, Non-Tender, Other (No meningismus) Respiratory/Chest: No Respiratory Distress, Lungs Clear, Normal Breath Sounds, No Accessory Muscle Use. No: Respiratory Distress, Decreased Breath Sounds, Crackles, Rales, Rhonchi, Wheezing Cardiovascular: Other (Tachycardic without murmurs, rubs or gallops, tachycardia appropriate for fever) GI/Abdominal Exam: Normal Bowel Sounds, Soft, Non-Tender, No Distention. No: Distended Back: Normal Inspection, Full Range of Motion Extremities: Normal Inspection Neurological: Alert, Oriented, Normal Cognition, Normal Gait. No: Slow to Respond Psychiatric: Normal Affect, Normal Mood Skin: Warm, Dry, Intact Lymphatic: Bilateral: No Adenopathy Course - Vital Signs Text/Narrative:: I spoke with the patient and his in detail. Currently, I did not suspected pneumonia as the patient has no clinical signs or symptoms of it. Even if the patient was neutropenic and he had a bacterial infection in his lungs he should at least be coughing, or shortness of breath, etc. Chest x-ray was reviewed and interpreted by me and there are no pulmonary filtrates, pleural effusions, thoracic mass, pneumothorax or any acute pathology. Lab work is also unremarkable from an emergency standpoint. I spoke with the patient and his in detail and for now, we will hold off on any antibiotics as I cannot find any findings clinically or per lab work that would be consistent with any kind of thing requiring antibiotics. They are comfortable with this. I also spoke with him in detail that the height of the fever does not correspond with any degree of illness. And finally, the patient is mentating perfectly without any reports of any confusion, etc. and so I will not perform a lumbar puncture for meningitis as I clinically do not suspect this at all. The patient does have follow-up with his oncologist tomorrow morning and I feel he is stable at this time. Last Recorded V/S: Last Vital Signs Temp 38.8 C H 05/04/19 00:19 Pulse 107 H 05/04/19 00:21 Resp 18 05/04/19 00:21 BP 127/79 05/04/19 00:21 Pulse Ox 93 L 05/04/19 00:21 - Orders/Labs/Meds Orders: Active Orders 24 hr Category Date Time Status CULTURE BLOOD [BC] Stat Lab 05/03/19 22:39 Received CULTURE BLOOD [BC] Stat Lab 05/03/19 22:50 Received Blood Culture x2 Reflex Set [OM.PC] Stat Oth 05/03/19 22:18 Ordered Labs: Laboratory Tests 05/03/19 05/03/19 05/03/19 Range/Units 22:20 22:20 22:20 WBC 3.60 L (4.0-11.0) K/uL RBC 3.71 L (4.50-5.90) M/uL Hgb 9.9 L (13.0-17.0) g/dL Hct 30.7 L (38.0-50.0) % MCV 82.7 (80.0-98.0) fL MCH 26.7 L (27.0-32.0) pg MCHC 32.2 (31.0-37.0) g/dL RDW Std Deviation 59.1 (28.0-62.0) fl RDW Coeff of Harika 20 H (11.0-15.0) % Plt Count 229 (150-400) K/uL MPV 9.40 (7.40-12.00) fL Add Manual Diff YES Neutrophils % (Manual) 60 (48.0-80.0) % Band Neutrophils % 8 % Lymphocytes % (Manual) 20 (16.0-40.0) % Monocytes % (Manual) 10 (0.0-15.0) % Eosinophils % (Manual) 1 (0.0-7.0) % Metamyelocytes % 1 % Nucleated RBC % 0.0 /100WBC Absolute Seg Neuts 2.2 (1.4-5.7) Band Neutrophils # 0.3 Lymphocytes # (Manual) 0.7 (0.6-2.4) Monocytes # (Manual) 0.4 (0.0-0.8) Eosinophils # (Manual) 0.0 (0.0-0.7) Absolute Metamyelocyte 0 Nucleated RBCs # 0 K/uL Lactate 1.8 (0.20-2.00) mmol/L Sodium 133 L (136-148) mmol/L Potassium 4.3 (3.5-5.1) mmol/L Chloride 97 L (98-107) mmol/L Carbon Dioxide 25.4 (21.0-32.0) mmol/L BUN 18 (7.0-18.0) mg/dL Creatinine 1.2 (0.8-1.3) mg/dL Est Cr Clr Drug Dosing 56.46 mL/min Estimated GFR (MDRD) 59.7 ml/min Glucose 118 H (74-106) mg/dL Calcium 8.8 (8.5-10.1) mg/dL Total Bilirubin 0.9 (0.2-1.0) mg/dL AST 34 (15-37) IU/L ALT 35 (14-63) IU/L Alkaline Phosphatase 82 (46-116) U/L Total Protein 6.5 (6.4-8.2) g/dL Albumin 3.5 (3.4-5.0) g/dL Globulin 3.0 (2.6-4.0) g/dL Albumin/Globulin Ratio 1.2 (0.9-1.6) Lipase 112 (73-393) U/L Urine Color Urine Appearance Urine pH (5.0-8.0) Ur Specific [place] (1.001-1.035) Urine Protein (NEGATIVE) mg/dL Urine Glucose (UA) (NEGATIVE) mg/dL Urine Ketones (NEGATIVE) mg/dL Urine Occult Blood (NEGATIVE) Urine Nitrite (NEGATIVE) Urine Bilirubin (NEGATIVE) Urine Urobilinogen (<2.0) EU/dL Ur Leukocyte Esterase (NEGATIVE) Urine RBC (0-2/HPF) Urine WBC (0-5/HPF) Ur Epithelial Cells (NONE-FEW) Urine Bacteria (NEGATIVE) Urine Mucus (NONE-MOD) 05/03/19 Range/Units 22:45 WBC (4.0-11.0) K/uL RBC (4.50-5.90) M/uL Hgb (13.0-17.0) g/dL Hct (38.0-50.0) % MCV (80.0-98.0) fL MCH (27.0-32.0) pg MCHC (31.0-37.0) g/dL RDW Std Deviation (28.0-62.0) fl RDW Coeff of Harika (11.0-15.0) % Plt Count (150-400) K/uL MPV (7.40-12.00) fL Add Manual Diff Neutrophils % (Manual) (48.0-80.0) % Band Neutrophils % % Lymphocytes % (Manual) (16.0-40.0) % Monocytes % (Manual) (0.0-15.0) % Eosinophils % (Manual) (0.0-7.0) % Metamyelocytes % % Nucleated RBC % /100WBC Absolute Seg Neuts (1.4-5.7) Band Neutrophils # Lymphocytes # (Manual) (0.6-2.4) Monocytes # (Manual) (0.0-0.8) Eosinophils # (Manual) (0.0-0.7) Absolute Metamyelocyte Nucleated RBCs # K/uL Lactate (0.20-2.00) mmol/L Sodium (136-148) mmol/L Potassium (3.5-5.1) mmol/L Chloride (98-107) mmol/L Carbon Dioxide (21.0-32.0) mmol/L BUN (7.0-18.0) mg/dL Creatinine (0.8-1.3) mg/dL Est Cr Clr Drug Dosing mL/min Estimated GFR (MDRD) ml/min Glucose (74-106) mg/dL Calcium (8.5-10.1) mg/dL Total Bilirubin (0.2-1.0) mg/dL AST (15-37) IU/L ALT (14-63) IU/L Alkaline Phosphatase (46-116) U/L Total Protein (6.4-8.2) g/dL Albumin (3.4-5.0) g/dL Globulin (2.6-4.0) g/dL Albumin/Globulin Ratio (0.9-1.6) Lipase (73-393) U/L Urine Color DARK YELLOW Urine Appearance CLEAR Urine pH 6.0 (5.0-8.0) Ur Specific [place] 1.025 (1.001-1.035) Urine Protein 100 H (NEGATIVE) mg/dL Urine Glucose (UA) NEGATIVE (NEGATIVE) mg/dL Urine Ketones NEGATIVE (NEGATIVE) mg/dL Urine Occult Blood NEGATIVE (NEGATIVE) Urine Nitrite NEGATIVE (NEGATIVE) Urine Bilirubin NEGATIVE (NEGATIVE) Urine Urobilinogen 0.2 (<2.0) EU/dL Ur Leukocyte Esterase NEGATIVE (NEGATIVE) Urine RBC NONE SEEN (0-2/HPF) Urine WBC 0-2 (0-5/HPF) Ur Epithelial Cells RARE (NONE-FEW) Urine Bacteria FEW (NEGATIVE) Urine Mucus MODERATE (NONE-MOD) Meds: Medications Discontinued Medications Generic Name Dose Route Start Last Admin Trade Name Freq PRN Reason Stop Dose Admin Acetaminophen 1,000 mg 05/04/19 00:10 05/04/19 00:18 Tylenol Extra Strength PO 05/04/19 00:11 1,000 mg ONETIME ONE Administration Sodium Chloride 1,000 mls @ 999 mls/hr 05/03/19 22:20 05/03/19 22:44 Normal Saline IV 05/03/19 23:20 999 mls/hr .Bolus ONE Administration Ibuprofen 800 mg 05/04/19 00:09 05/04/19 00:19 Motrin PO 05/04/19 00:10 800 mg ONETIME ONE Administration Departure - Departure Time of Disposition: 00:42 Disposition: Home, Self-Care 01 Clinical Impression: Fever of unknown origin - Discharge Information Referrals: Phil Murphy BICYCLE RENTAL CLERK [Primary Care Provider] - Forms: ED Department Discharge Additional Instructions: Continue your current medications and activities. Sure that you drink extra water while you have fevers. Follow-up with your doctor tomorrow as scheduled. Turn to the ER if you are having trouble breathing, having unusual abdominal pain, having unusual headaches or any other concerns. Sepsis Event Note - Evaluation Sepsis Screening Result: No Definite Risk - Focused Exam Vital Signs: Vital Signs Temp Temp Temp Pulse Resp BP Pulse Ox 05/04/19 00:21 107 H 18 127/79 93 L 05/04/19 00:19 38.8 C H 05/04/19 00:18 38.8 C H 05/03/19 23:06 37.9 C 05/03/19 22:10 39.1 C H 121 H 17 126/79 97 Date Exam was Performed: 05/04/19 Time Exam was Performed: 00:35 - My Orders Last 24 Hours: My Active Orders 05/03/19 22:18 Blood Culture x2 Reflex Set [OM.PC] Stat 05/03/19 22:39 CULTURE BLOOD [BC] Stat 05/03/19 22:50 CULTURE BLOOD [BC] Stat - Assessment/Plan Last 24 Hours: My Active Orders 05/03/19 22:18 Blood Culture x2 Reflex Set [OM.PC] Stat 05/03/19 22:39 CULTURE BLOOD [BC] Stat 05/03/19 22:50 CULTURE BLOOD [BC] Stat
[2019-05-04 00:46] VITALS: BP 120/74; PULSE 101
== END 2019-05-04 00:50 | disposition home or self-care (01) ==
LOC: MW.ED 21:59
DX: R50.9 Fever, unspecified (principal); J34.89 Other specified disorders of nose and nasal sinuses; I10 Essential (primary) hypertension
CPT/HCPCS: 36415; 71046; 80053; 81001; 83605; 83690; 85025; 87040; 96360; 99283; A9270; J7030

== ENCOUNTER 2019-05-13 13:26 | Inpatient (IN) | payer OTHER, MEDICARE ==
[2019-05-13] MEDS ORDERED: Sodium Chloride 0.9% 1,000 ML IV ONE (13:37)
[2019-05-13 14:31] LABS: BLOOD UREA NITROGEN,BUN 19 mg/dL (7.0-18.0); CARBON DIOXIDE,CO2 27.1 mmol/L (21.0-32.0); CHLORIDE,CL 100 mmol/L (98-107); GLUCOSE RANDOM 122 mg/dL (74-106); POTASSIUM,K 3.4 mmol/L (3.5-5.1); SODIUM,NA 137 mmol/L (136-148)
--- NOTE | 2019-05-13 14:47 | CR ---
Chest: Portable view of the chest was obtained. Comparison: Prior chest x-ray of 05/03/19. Slight scarring is noted within the left base. Lungs otherwise are clear. Right-sided infusion port is seen. Heart is within normal limits for technique. Upper mediastinum is normal. Bony structures are grossly intact. Impression: 1. Findings as noted above. Nothing acute is seen on portable chest x-ray. Diagnostic code #2 Study was dictated in [place] [employer] Time
[2019-05-13] MEDS ORDERED: Piperacillin/Tazobactam 4.5 GM in Sodium Chloride 0.9% 100 ML IV ONE (14:50)
--- NOTE | 2019-05-13 14:51 | EDM.PDOC ---
ED HPI GENERAL MEDICAL PROBLEM - General Chief Complaint: Fever Stated Complaint: FEVER Time Seen by Provider: 05/13/19 13:29 - History of Present Illness INITIAL COMMENTS - FREE TEXT/NARRATIVE: Getting chemotherapy for lymphoma last treatment was 1 week ago complaint of malaise fever 101 at home denies chest pain shortness of breath denies any nausea vomiting. Positive anorexia. Positive myalgia. History of anemia resulting in 2 units of packed RBC given within the last few weeks. Denies any focal pain or weakness but complains of generalized malaise. Dry nonproductive cough. Fever started today generalized malaise and feeling of body ache started today as well. Patient has been compliant with chemotherapy and treatment for lymphoma and has a history of neutropenia. - Related Data Allergies Allergy/AdvReac Type Severity Reaction Status Date / Time No Known Allergies Allergy Verified 05/13/19 13:31 Home Meds: Home Meds Losartan Potassium 50 tab PO DAILY 03/14/16 [History] amLODIPine [Norvasc] 5 mg PO DAILY 03/14/16 [History] Finasteride 5 mg PO DAILY 06/15/17 [History] Morphine 15 mg PO Q4H PRN 02/17/19 [History] fentaNYL [Fentanyl] 12 mcg TRDERM Q72H MDD 37.5 mcg/hr 02/24/19 [History] fentaNYL [Duragesic] 25 mcg TD Q72H MDD 37.5mcg/hr 03/10/19 [History] Tamsulosin HCl [Flomax] 0.4 mg PO DAILY 03/11/19 [History] Alum Hydrox/Mag Hydrox/Simeth [Mag-Al Plus] 30 ml PO Q4H PRN cup 04/25/19 [Rx] Levofloxacin [Levaquin] 750 mg PO DAILY 7 Days #7 tablet 04/25/19 [Rx] Past Medical History HEENT History: Reports: Impaired Vision Other HEENT History: wears reading glasses Cardiovascular History: Reports: Arrhythmia, High Cholesterol, Hypertension Respiratory History: Reports: Other (See Below) Other Respiratory History: over 1 week ago was prescribed inhaler for cough and congestion, no problems now Gastrointestinal History: Reports: None Genitourinary History: Reports: BPH, Other (See Below) Other Genitourinary History: kidney cancer Musculoskeletal History: Reports: Fracture Neurological History: Reports: Vertigo Other Neuro History: hx of motion sickness, hx of vertigo Psychiatric History: Reports: None Endocrine/Metabolic History: Reports: None Hematologic History: Reports: None Immunologic History: Reports: None Oncologic (Cancer) History: Reports: Other (See Below) Other Oncologic History: T-cell lymphoma CD30+ (positive), kidney cancer. Dermatologic History: Reports: None - Infectious Disease History Infectious Disease History: Reports: None - Past Surgical History Head Surgeries/Procedures: Reports: None HEENT Surgical History: Reports: None Cardiovascular Surgical History: Reports: None Respiratory Surgical History: Reports: None GI Surgical History: Reports: None Male Surgical History: Reports: None Endocrine Surgical History: Reports: None Neurological Surgical History: Reports: None Musculoskeletal Surgical History: Reports: Arthroscopic Knee, ORIF Other Musculoskeletal Surgeries/Procedures:: ORIF left ring finger with pin removal Oncologic Surgical History: Reports: Bone Marrow Aspiration Dermatological Surgical History: Reports: None Social & Family History - Family History Family Medical History: Noncontributory - Tobacco Use Smoking Status *Q: Never Smoker Second Hand Smoke Exposure: No - Caffeine Use Caffeine Use: Reports: None - Recreational Drug Use Recreational Drug Use: No ED ROS GENERAL - Review of Systems Review Of Systems: See Below Constitutional: Reports: Fever, Chills, Malaise, Weakness, Fatigue HEENT: Reports: No Symptoms Respiratory: Reports: Cough Cardiovascular: Reports: No Symptoms GI/Abdominal: Reports: Anorexia, Decreased Appetite. Denies: Abdominal Pain, Constipation, Diarrhea Musculoskeletal: Reports: Muscle Pain Skin: Reports: No Symptoms Psychiatric: Reports: No Symptoms Hematologic/Lymphatic: Reports: Anemia ED EXAM, SEPSIS - Physical Exam Exam: See Below Exam Limited By: No Limitations General Appearance: Alert, Mild Distress Throat/Mouth: Normal Inspection, Normal Lips, Normal Teeth, Normal Gums, Normal Oropharynx, Normal Voice, No Airway Compromise Head: Atraumatic, Normocephalic Neck: Normal Inspection, Supple, Non-Tender, Full Range of Motion Respiratory/Chest: No Respiratory Distress, Lungs Clear, Normal Breath Sounds, No Accessory Muscle Use, Chest Non-Tender Cardiovascular: Normal Peripheral Pulses, No Edema, No Gallop, No JVD, No Murmur , No Rub, Tachycardia. No: Regular Rate, Rhythm Peripheral Pulses: 4+: Carotid (L), Carotid (R), Brachial (L), Brachial (R), Radial (L), Radial (R), Femoral (L), Femoral (R), Popliteal (L), Popliteal (R) GI/Abdominal Exam: Normal Bowel Sounds, Soft, Non-Tender, No Organomegaly, No Distention, No Abnormal Bruit, No Mass, Pelvis Stable Back: Normal Inspection, Full Range of Motion, NT Extremities: Normal Inspection, Normal Range of Motion, Non-Tender, No Pedal Edema, Normal Capillary Refill Neurological: Alert, Oriented, CN II-XII Intact, Normal Cognition, Normal Gait, Normal Reflexes, No Motor/Sensory Deficits Psychiatric: Normal Affect, Normal Mood Skin: Warm, Dry, Intact, Normal Color, No Rash Course - Vital Signs Last Recorded V/S: Last Vital Signs Temp 97.9 F 05/13/19 15:07 Pulse 106 H 05/13/19 15:07 Resp 16 05/13/19 15:07 BP 160/82 H 05/13/19 15:07 Pulse Ox 97 05/13/19 15:07 - Orders/Labs/Meds Orders: Active Orders 24 hr Category Date Time Status Admission Status [Patient Status] [ADT] Stat ADT 05/13/19 15:27 Ordered CULTURE BLOOD [BC] Stat Lab 05/13/19 13:41 Received CULTURE BLOOD [BC] Stat Lab 05/13/19 14:00 Received INFLUENZA A+B AG SCREEN [RM] Stat Lab 05/13/19 13:29 Ordered STREP SCRN A RAPID W CULT CONF [RM] Stat Lab 05/13/19 13:29 Ordered UA RFX JEREMIAS AND CULT IF INDIC [URIN] Stat Lab 05/13/19 13:29 Ordered Piperacillin/Tazobactam [Piperacil-Tazobact] 4.5 gm Med 05/13/19 14:50 Active Sodium Chloride 0.9% [Normal Saline] 100 ml IV ONETIME Sodium Chloride 0.9% [Normal Saline] 1,000 ml Med 05/13/19 15:00 Active IV STAT Blood Culture x2 Reflex Set [OM.PC] Stat Oth 05/13/19 13:29 Ordered Medication Orders Piperacillin Sod/Tazobactam (Sod 4.5 gm/ Sodium Chloride) 100 mls @ 100 mls/hr IV ONETIME ONE Stop: 05/13/19 15:49 Last Admin: 05/13/19 14:59 Dose: 100 mls/hr Sodium Chloride (Normal Saline) 1,000 mls @ 999 mls/hr IV STAT SMITH Last Admin: 05/13/19 14:58 Dose: 999 mls/hr Labs: Laboratory Tests 05/13/19 05/13/19 05/13/19 Range/Units 13:04 13:44 13:44 WBC 0.06 L (4.0-11.0) K/uL RBC 3.13 L (4.50-5.90) M/uL Hgb 8.3 L (13.0-17.0) g/dL Hct 25.8 L (38.0-50.0) % MCV 82.4 (80.0-98.0) fL MCH 26.5 L (27.0-32.0) pg MCHC 32.2 (31.0-37.0) g/dL RDW Std Deviation 55.1 (28.0-62.0) fl RDW Coeff of Harika 18 H (11.0-15.0) % Plt Count 55 L (150-400) K/uL MPV 9.30 (7.40-12.00) fL Add Manual Diff YES Neutrophils % (Manual) 10 L (48.0-80.0) % Lymphocytes % (Manual) 60 H (16.0-40.0) % Monocytes % (Manual) 30 H (0.0-15.0) % Nucleated RBC % 0.0 /100WBC Absolute Seg Neuts 0.0 L (1.4-5.7) Lymphocytes # (Manual) 0.0 L (0.6-2.4) Monocytes # (Manual) 0.0 (0.0-0.8) Nucleated RBCs # 0 K/uL Lactate 3.3 H* (0.20-2.00) mmol/L Sodium 137 (136-148) mmol/L Potassium 3.4 L (3.5-5.1) mmol/L Chloride 100 (98-107) mmol/L Carbon Dioxide 27.1 (21.0-32.0) mmol/L BUN 19 H (7.0-18.0) mg/dL Creatinine 0.9 (0.8-1.3) mg/dL Est Cr Clr Drug Dosing 75.28 mL/min Estimated GFR (MDRD) > 60.0 ml/min Glucose 122 H (74-106) mg/dL Calcium 8.4 L (8.5-10.1) mg/dL Total Bilirubin 0.9 (0.2-1.0) mg/dL AST 33 (15-37) IU/L ALT 114 H (14-63) IU/L Alkaline Phosphatase 73 (46-116) U/L Total Protein 5.5 L (6.4-8.2) g/dL Albumin 3.0 L (3.4-5.0) g/dL Globulin 2.5 L (2.6-4.0) g/dL Albumin/Globulin Ratio 1.2 (0.9-1.6) Blood Type Antibody Screen 05/13/19 Range/Units 14:00 WBC (4.0-11.0) K/uL RBC (4.50-5.90) M/uL Hgb (13.0-17.0) g/dL Hct (38.0-50.0) % MCV (80.0-98.0) fL MCH (27.0-32.0) pg MCHC (31.0-37.0) g/dL RDW Std Deviation (28.0-62.0) fl RDW Coeff of Harika (11.0-15.0) % Plt Count (150-400) K/uL MPV (7.40-12.00) fL Add Manual Diff Neutrophils % (Manual) (48.0-80.0) % Lymphocytes % (Manual) (16.0-40.0) % Monocytes % (Manual) (0.0-15.0) % Nucleated RBC % /100WBC Absolute Seg Neuts (1.4-5.7) Lymphocytes # (Manual) (0.6-2.4) Monocytes # (Manual) (0.0-0.8) Nucleated RBCs # K/uL Lactate (0.20-2.00) mmol/L Sodium (136-148) mmol/L Potassium (3.5-5.1) mmol/L Chloride (98-107) mmol/L Carbon Dioxide (21.0-32.0) mmol/L BUN (7.0-18.0) mg/dL Creatinine (0.8-1.3) mg/dL Est Cr Clr Drug Dosing mL/min Estimated GFR (MDRD) ml/min Glucose (74-106) mg/dL Calcium (8.5-10.1) mg/dL Total Bilirubin (0.2-1.0) mg/dL AST (15-37) IU/L ALT (14-63) IU/L Alkaline Phosphatase (46-116) U/L Total Protein (6.4-8.2) g/dL Albumin (3.4-5.0) g/dL Globulin (2.6-4.0) g/dL Albumin/Globulin Ratio (0.9-1.6) Blood Type AB POSITIVE Antibody Screen NEGATIVE Meds: Medications Generic Name Dose Route Start Last Admin Trade Name Freq PRN Reason Stop Dose Admin Piperacillin Sod/Tazobactam 100 mls @ 100 mls/hr 05/13/19 14:50 05/13/19 14: 59 Sod 4.5 gm/ Sodium Chloride IV 05/13/19 15:49 100 mls/hr ONETIME ONE Administration Sodium Chloride 1,000 mls @ 999 mls/hr 05/13/19 15:00 05/13/19 14:58 Normal Saline IV 999 mls/hr STAT SMITH Administration Discontinued Medications Generic Name Dose Route Start Last Admin Trade Name Freq PRN Reason Stop Dose Admin Sodium Chloride 1,000 mls @ 999 mls/hr 05/13/19 13:37 05/13/19 14:01 Normal Saline IV 05/13/19 14:37 999 mls/hr STAT ONE Administration Departure - Departure Time of Disposition: 15:31 Disposition: Admitted As Inpatient 64 Clinical Impression: Neutropenia Qualifiers: Neutropenia type: secondary to cancer chemotherapy Qualified Code(s): D70.1 - Agranulocytosis secondary to cancer chemotherapy; T45.1X5A - Adverse effect of antineoplastic and immunosuppressive drugs, initial encounter Fever Qualifiers: Fever type: unspecified Qualified Code(s): R50.9 - Fever, unspecified - Discharge Information Referrals: Maria L Jones MD [Primary Care Provider] - Forms: ED Department Discharge Sepsis Event Note - Evaluation Sepsis Screening Result: Possible Sepsis Risk - Focused Exam Vital Signs: Vital Signs Temp Pulse Resp BP Pulse Ox 05/13/19 15:07 97.9 F 106 H 16 160/82 H 97 05/13/19 13:27 99.3 F 132 H 20 144/89 H 97 Capillary Refill, Detail: Greater than (>) 2 Seconds Pulse Description: 2+ Normal Peripheral Pulse Location: Radial Date Exam was Performed: 05/13/19 Time Exam was Performed: 15:31 - My Orders Last 24 Hours: My Active Orders 05/13/19 14:50 Piperacillin/Tazobactam [Piperacil-Tazobact] 4.5 gm Sodium Chloride 0.9% [ Normal Saline] 100 ml IV ONETIME 05/13/19 15:00 Sodium Chloride 0.9% [Normal Saline] 1,000 ml IV STAT 05/13/19 15:27 Admission Status [Patient Status] [ADT] Stat - Assessment/Plan Last 24 Hours: My Active Orders 05/13/19 14:50 Piperacillin/Tazobactam [Piperacil-Tazobact] 4.5 gm Sodium Chloride 0.9% [ Normal Saline] 100 ml IV ONETIME 05/13/19 15:00 Sodium Chloride 0.9% [Normal Saline] 1,000 ml IV STAT 05/13/19 15:27 Admission Status [Patient Status] [ADT] Stat
[2019-05-13] MEDS ORDERED: Sodium Chloride 0.9% 1,000 ML IV SCH (15:00)
[2019-05-13] MEDS ORDERED: Acetaminophen 500 MG Tab PO ONE (15:48)
--- NOTE | 2019-05-13 15:55 | PCM.HP.2 ---
H&P History of Present Illness - General Date of Service: 05/13/19 Admit Problem/Dx: Admission Diagnosis/Problem Admission Diagnosis/Problem Neutropenia - History of Present Illness Initial Comments - Free Text/Narative: The patient is a 69 year old male with T cell lymphoma and renal cell carcinoma , HTN, hyperlipemia, and BPH who presents with fever. He is undergoing chemotherapy, last treatment was 05/06/19. At home today he spiked a temp of 101.8 F. notes lethargy and anorexia, hasn't eaten much for the past 3 days. Patient denies sinus congestion, sore throat, chest pain, shortness of breath, cough, nausea/vomiting, constipation, burning with urination, or rash. Reports a little diarrhea. Was admitted 04/22/19 with similar complaints but at that time his Hemoglobin was 6.6 and he received 2 units of PRBC, discharged at 7.8. No cultures grew out during last admission. In the ER, patient was pancytopenic with elevated lactate. UA was negative. CXR was negative. Blood cultures pending. Influenza/Strep negative. Spiked temp of 101.2 in ER and given Tylenol. Was also given 2L of IVF and started on Zosyn. PCP- [facility] - Related Data Allergies/Adverse Reactions: Allergies Allergy/AdvReac Type Severity Reaction Status Date / Time No Known Allergies Allergy Verified 05/13/19 16:38 Home Medications: Home Meds Losartan Potassium 50 tab PO DAILY 03/14/16 [History] amLODIPine [Norvasc] 5 mg PO DAILY 03/14/16 [History] Finasteride 5 mg PO DAILY 06/15/17 [History] Morphine 15 mg PO Q4H PRN 02/17/19 [History] fentaNYL [Fentanyl] 12 mcg TRDERM Q72H MDD 37.5 mcg/hr 02/24/19 [History] fentaNYL [Duragesic] 25 mcg TD Q72H MDD 37.5mcg/hr 03/10/19 [History] Tamsulosin HCl [Flomax] 0.4 mg PO DAILY 03/11/19 [History] Alum Hydrox/Mag Hydrox/Simeth [Mag-Al Plus] 30 ml PO Q4H PRN cup 04/25/19 [Rx] Levofloxacin [Levaquin] 750 mg PO DAILY 7 Days #7 tablet 04/25/19 [Rx] Past Medical History HEENT History: Reports: Impaired Vision Other HEENT History: wears reading glasses Cardiovascular History: Reports: Arrhythmia, High Cholesterol, Hypertension Respiratory History: Reports: Other (See Below) Other Respiratory History: over 1 week ago was prescribed inhaler for cough and congestion, no problems now Gastrointestinal History: Reports: None Genitourinary History: Reports: BPH, Other (See Below) Other Genitourinary History: kidney cancer Musculoskeletal History: Reports: Fracture Neurological History: Reports: Vertigo Other Neuro History: hx of motion sickness, hx of vertigo Psychiatric History: Reports: None Endocrine/Metabolic History: Reports: None Hematologic History: Reports: None Immunologic History: Reports: None Oncologic (Cancer) History: Reports: Other (See Below) Other Oncologic History: T-cell lymphoma CD30+ (positive), kidney cancer. Dermatologic History: Reports: None - Infectious Disease History Infectious Disease History: Reports: None - Past Surgical History Head Surgeries/Procedures: Reports: None HEENT Surgical History: Reports: None Cardiovascular Surgical History: Reports: None Respiratory Surgical History: Reports: None GI Surgical History: Reports: None Male Surgical History: Reports: None Endocrine Surgical History: Reports: None Neurological Surgical History: Reports: None Musculoskeletal Surgical History: Reports: Arthroscopic Knee, ORIF Other Musculoskeletal Surgeries/Procedures:: ORIF left ring finger with pin removal Oncologic Surgical History: Reports: Bone Marrow Aspiration Dermatological Surgical History: Reports: None Social & Family History - Family History Family Medical History: Noncontributory - Tobacco Use Smoking Status *Q: Never Smoker Second Hand Smoke Exposure: No - Caffeine Use Caffeine Use: Reports: None - Recreational Drug Use Recreational Drug Use: No H&P Review of Systems - Review of Systems: Review Of Systems: See Below General: Reports: Fever, Fatigue HEENT: Reports: No Symptoms Pulmonary: Reports: No Symptoms Cardiovascular: Reports: No Symptoms Gastrointestinal: Reports: No Symptoms Genitourinary: Reports: No Symptoms Musculoskeletal: Reports: No Symptoms Skin: Reports: No Symptoms Psychiatric: Reports: No Symptoms Neurological: Reports: No Symptoms Hematologic/Lymphatic: Reports: Anemia Immunologic: Reports: No Symptoms Exam - Exam Exam: See Below - Vital Signs Vital Signs: Last Vital Signs Temp 101.2 F H 05/13/19 15:46 Pulse 106 H 05/13/19 15:07 Resp 16 05/13/19 15:07 BP 160/82 H 05/13/19 15:07 Pulse Ox 97 05/13/19 15:07 Weight: 80.4 kg - Exam General: Alert, Oriented, Cooperative HEENT: Conjunctiva Clear, EOMI, Mucosa Moist & [place], Posterior Pharynx Clear, Pupils Equal, Pupils Reactive Neck: Supple Lungs: Clear to Auscultation, Normal Respiratory Effort Cardiovascular: Regular Rate, Regular Rhythm GI/Abdominal Exam: Normal Bowel Sounds, Soft, Non-Tender, No Distention, Distended. No: Guarding, Rigid, Rebound Extremities: No Pedal Edema Skin: Warm, Dry, Intact Neuro Extensive - Mental Status: Alert Psychiatric: Alert, Normal Affect, Normal Mood - Patient Data Lab Results Last 24 hrs: Laboratory Results - last 24 hr 05/13/19 05/13/19 05/13/19 Range/Units 13:04 13:44 13:44 WBC 0.06 L (4.0-11.0) K/uL RBC 3.13 L (4.50-5.90) M/uL Hgb 8.3 L (13.0-17.0) g/dL Hct 25.8 L (38.0-50.0) % MCV 82.4 (80.0-98.0) fL MCH 26.5 L (27.0-32.0) pg MCHC 32.2 (31.0-37.0) g/dL RDW Std Deviation 55.1 (28.0-62.0) fl RDW Coeff of Harika 18 H (11.0-15.0) % Plt Count 55 L (150-400) K/uL MPV 9.30 (7.40-12.00) fL Add Manual Diff YES Neutrophils % (Manual) 10 L (48.0-80.0) % Lymphocytes % (Manual) 60 H (16.0-40.0) % Monocytes % (Manual) 30 H (0.0-15.0) % Nucleated RBC % 0.0 /100WBC Absolute Seg Neuts 0.0 L (1.4-5.7) Lymphocytes # (Manual) 0.0 L (0.6-2.4) Monocytes # (Manual) 0.0 (0.0-0.8) Nucleated RBCs # 0 K/uL Lactate 3.3 H* (0.20-2.00) mmol/L Sodium 137 (136-148) mmol/L Potassium 3.4 L (3.5-5.1) mmol/L Chloride 100 (98-107) mmol/L Carbon Dioxide 27.1 (21.0-32.0) mmol/L BUN 19 H (7.0-18.0) mg/dL Creatinine 0.9 (0.8-1.3) mg/dL Est Cr Clr Drug Dosing 75.28 mL/min Estimated GFR (MDRD) > 60.0 ml/min Glucose 122 H (74-106) mg/dL Calcium 8.4 L (8.5-10.1) mg/dL Total Bilirubin 0.9 (0.2-1.0) mg/dL AST 33 (15-37) IU/L ALT 114 H (14-63) IU/L Alkaline Phosphatase 73 (46-116) U/L Total Protein 5.5 L (6.4-8.2) g/dL Albumin 3.0 L (3.4-5.0) g/dL Globulin 2.5 L (2.6-4.0) g/dL Albumin/Globulin Ratio 1.2 (0.9-1.6) Urine Color Urine Appearance Urine pH (5.0-8.0) Ur Specific [place] (1.001-1.035) Urine Protein (NEGATIVE) mg/dL Urine Glucose (UA) (NEGATIVE) mg/dL Urine Ketones (NEGATIVE) mg/dL Urine Occult Blood (NEGATIVE) Urine Nitrite (NEGATIVE) Urine Bilirubin (NEGATIVE) Urine Urobilinogen (<2.0) EU/dL Ur Leukocyte Esterase (NEGATIVE) Blood Type Antibody Screen 05/13/19 05/13/19 Range/Units 14:00 15:41 WBC (4.0-11.0) K/uL RBC (4.50-5.90) M/uL Hgb (13.0-17.0) g/dL Hct (38.0-50.0) % MCV (80.0-98.0) fL MCH (27.0-32.0) pg MCHC (31.0-37.0) g/dL RDW Std Deviation (28.0-62.0) fl RDW Coeff of Harika (11.0-15.0) % Plt Count (150-400) K/uL MPV (7.40-12.00) fL Add Manual Diff Neutrophils % (Manual) (48.0-80.0) % Lymphocytes % (Manual) (16.0-40.0) % Monocytes % (Manual) (0.0-15.0) % Nucleated RBC % /100WBC Absolute Seg Neuts (1.4-5.7) Lymphocytes # (Manual) (0.6-2.4) Monocytes # (Manual) (0.0-0.8) Nucleated RBCs # K/uL Lactate (0.20-2.00) mmol/L Sodium (136-148) mmol/L Potassium (3.5-5.1) mmol/L Chloride (98-107) mmol/L Carbon Dioxide (21.0-32.0) mmol/L BUN (7.0-18.0) mg/dL Creatinine (0.8-1.3) mg/dL Est Cr Clr Drug Dosing mL/min Estimated GFR (MDRD) ml/min Glucose (74-106) mg/dL Calcium (8.5-10.1) mg/dL Total Bilirubin (0.2-1.0) mg/dL AST (15-37) IU/L ALT (14-63) IU/L Alkaline Phosphatase (46-116) U/L Total Protein (6.4-8.2) g/dL Albumin (3.4-5.0) g/dL Globulin (2.6-4.0) g/dL Albumin/Globulin Ratio (0.9-1.6) Urine Color YELLOW Urine Appearance CLEAR Urine pH 5.5 (5.0-8.0) Ur Specific [place] 1.025 (1.001-1.035) Urine Protein NEGATIVE (NEGATIVE) mg/dL Urine Glucose (UA) NEGATIVE (NEGATIVE) mg/dL Urine Ketones NEGATIVE (NEGATIVE) mg/dL Urine Occult Blood NEGATIVE (NEGATIVE) Urine Nitrite NEGATIVE (NEGATIVE) Urine Bilirubin NEGATIVE (NEGATIVE) Urine Urobilinogen 0.2 (<2.0) EU/dL Ur Leukocyte Esterase NEGATIVE (NEGATIVE) Blood Type AB POSITIVE Antibody Screen NEGATIVE Result Diagrams: 05/13/19 13:44 05/13/19 13:44 Sepsis Event Note - Evaluation Sepsis Screening Result: Possible Sepsis Risk - Focused Exam Vital Signs: Vital Signs Temp Pulse Resp BP Pulse Ox 05/13/19 15:46 101.2 F H 05/13/19 15:07 97.9 F 106 H 16 160/82 H 97 05/13/19 13:27 99.3 F 132 H 20 144/89 H 97 Date Exam was Performed: 05/13/19 Time Exam was Performed: 16:53 Problem List Initiated/Reviewed/Updated: Yes Orders Last 24hrs: Active Orders 24 hr Category Date Time Status Admission Status [Patient Status] [ADT] Stat ADT 05/13/19 15:27 Active CULTURE BLOOD [BC] Stat Lab 05/13/19 13:41 Received CULTURE BLOOD [] Stat Lab 05/13/19 14:00 Received INFLUENZA A+B AG SCREEN [] Stat Lab 05/13/19 13:29 Ordered STREP SCRN A RAPID W CULT CONF [] Stat Lab 05/13/19 13:29 Ordered Acetaminophen [Tylenol Extra Strength] Med 05/13/19 15:48 Once 1,000 mg PO ONETIME ONE Sodium Chloride 0.9% [Normal Saline] 1,000 ml Med 05/13/19 15:00 Active IV STAT Blood Culture x2 Reflex Set [OM.PC] Stat Oth 05/13/19 13:29 Ordered Medication Orders Sodium Chloride (Normal Saline) 1,000 mls @ 999 mls/hr IV STAT SMITH Last Admin: 05/13/19 14:58 Dose: 999 mls/hr Assessment/Plan Comment:: 1. Admit to inpatient 2. Code status 3. Vitals per routine 4. I/Os per routine 5. Diet- neutropenic 6. DVT prophylaxis with 7. Neutropenic fever with Tcell lymphoma- Continue Zosyn. Blood cultures pending. Will order stool cultures. Trend lactate. Continue IVF. Tyelnol for fever. 8. Pancytopenia- secondary to chemotherapy- monitor. 9. Chronic conditions- HTN, hyperlipidemia, BPH- continue home meds 10. Abdominal distention- will get CT ab/pelvis
[2019-05-13] MEDS ORDERED: Non-Formulary Medication 1 Each (Fentanyl [Fentanyl] 12 MCG) TRDERM SCH (16:30)
[2019-05-13] MEDS ORDERED: Piperacillin/Tazobactam 4.5 GM in Sodium Chloride 0.9% 100 ML IV SCH (16:30)
[2019-05-13] MEDS ORDERED: fentaNYL 25 MCG/HR Transdermal Patch TRDERM SCH (16:30)
[2019-05-13] MEDS ORDERED: Iopamidol 755 MG/ML 500 ML Multipack Bottle IVPUSH STA (17:46)
[2019-05-13] MEDS: Sodium Chloride 0.9% 1,000 ML IV SCH (17:53)
--- NOTE | 2019-05-13 18:08 | CT ---
CT abdomen and pelvis Technique: Multiple axial sections were obtained from above the dome of the diaphragm inferiorly through the pubic symphysis. Intravenous contrast was utilized. No oral contrast has been given. Comparison: Previous CT abdomen and pelvis study of 12/30/18 and MRI abdomen exam of 01/10/19. Findings: Large heterogeneously enhancing mass noted within the upper right kidney. Mass measures about 15.4 cm in greatest oblique AP dimension which is similar to the previous studies. Stable cyst within the right kidney is seen. Left kidney appears within normal limits. Small right sided pleural effusion is seen which is slightly decreased in amount from prior CT exam. Visualized lung bases otherwise shows slight atelectasis. Spleen appears within normal limits. No abnormality is seen within the liver. Pancreas shows no mass. Right adrenal gland not well seen because of the renal mass. Left adrenal gland appears normal. Aorta shows no aneurysm. Mild stable retroperitoneal adenopathy is seen. Small amount of ascites is seen within the pelvis which is also an interval change from prior exam. Diverticuli are seen within the sigmoid colon. Aorta shows no aneurysm. Small amount of fluid seen within the mesentery compatible with ascites. Bone window settings were reviewed which shows scattered degenerative change within the spine. Lesion noted within the left side of the ilium which appears stable from previous exam. Degenerative spurring noted within the left sacroiliac joint. Impression: 1. Large renal mass which appears similar to previous exam. Findings compatible with renal cell carcinoma. 2. Mild adenopathy within the retroperitoneum which also appears to be stable. 3. Small amount of ascites within the pelvis and mesentery which is an interval change. 4. Small right sided pleural effusion which has slightly decreased in amount from previous exam. Mild bibasilar atelectasis. Diagnostic code #9 Study was dictated in [place] [employer] Time
[2019-05-13] MEDS: Piperacillin/Tazobactam 4.5 GM in Sodium Chloride 0.9% 100 ML IV SCH (20:57)
[2019-05-13] MEDS: Acetaminophen 325 MG Tab PO PRN (23:41)
[2019-05-14] MEDS: Sodium Chloride 0.9% 1,000 ML IV SCH ×2 (02:49→20:30)
[2019-05-14] MEDS: Piperacillin/Tazobactam 4.5 GM in Sodium Chloride 0.9% 100 ML IV SCH ×3 (02:51→16:37)
[2019-05-14] MEDS ORDERED: fentaNYL 25 MCG/HR Transdermal Patch TRDERM SCH (05:00)
[2019-05-14] MEDS ORDERED: fentaNYL 12 MCG/HR Transdermal Patch TRDERM SCH (05:00)
[2019-05-14 06:51] LABS: BLOOD UREA NITROGEN,BUN 18 mg/dL (7.0-18.0); CARBON DIOXIDE,CO2 27.5 mmol/L (21.0-32.0); CHLORIDE,CL 104 mmol/L (98-107); GLUCOSE RANDOM 123 mg/dL (74-106); POTASSIUM,K 3.1 mmol/L (3.5-5.1); SODIUM,NA 139 mmol/L (136-148)
[2019-05-14] MEDS: Losartan 50 MG Tab PO SCH (09:42)
[2019-05-14] MEDS: amLODIPine 5 MG Tab PO SCH (09:42)
[2019-05-14] MEDS: Tamsulosin 0.4 MG Cap.ER PO SCH (09:42)
[2019-05-14] MEDS: Finasteride 5 MG Tab PO SCH (09:43)
[2019-05-14] MEDS: Ondansetron 4 MG/2 ML SDV IVPUSH PRN (09:48)
[2019-05-14] MEDS: Acetaminophen 325 MG Tab PO PRN ×2 (10:11→18:50)
[2019-05-14] MEDS ORDERED: Potassium Chloride 20 MEQ Tab.ER PO ONE (12:02)
--- NOTE | 2019-05-14 12:05 | PCM.PN ---
- General Info Date of Service: 05/14/19 - Review of Systems Systems Review Comment:: reports fever, denies any cough, shortness breath, diarrhea, or abdominal pain, no blood in stool - Patient Data Vitals - Most Recent: Last Vital Signs Temp 38.0 C 05/14/19 11:36 Pulse 97 05/14/19 11:36 Resp 20 05/14/19 11:36 BP 130/69 05/14/19 11:36 Pulse Ox 94 L 05/14/19 11:36 Weight - Most Recent: 81.7 kg I&O - Last 24 Hours: Intake & Output 05/13/19 05/14/19 05/14/19 22:59 06:59 14:59 Intake Total 100 1560 Balance 100 1560 Lab Results Last 24 Hours: Laboratory Results - last 24 hr 05/13/19 05/13/19 05/13/19 Range/Units 13:04 13:44 13:44 WBC 0.06 L (4.0-11.0) K/uL RBC 3.13 L (4.50-5.90) M/uL Hgb 8.3 L (13.0-17.0) g/dL Hct 25.8 L (38.0-50.0) % MCV 82.4 (80.0-98.0) fL MCH 26.5 L (27.0-32.0) pg MCHC 32.2 (31.0-37.0) g/dL RDW Std Deviation 55.1 (28.0-62.0) fl RDW Coeff of Harika 18 H (11.0-15.0) % Plt Count 55 L (150-400) K/uL MPV 9.30 (7.40-12.00) fL Add Manual Diff YES Neutrophils % (Manual) 10 L (48.0-80.0) % Lymphocytes % (Manual) 60 H (16.0-40.0) % Monocytes % (Manual) 30 H (0.0-15.0) % Nucleated RBC % 0.0 /100WBC Absolute Seg Neuts 0.0 L (1.4-5.7) Lymphocytes # (Manual) 0.0 L (0.6-2.4) Monocytes # (Manual) 0.0 (0.0-0.8) Nucleated RBCs # 0 K/uL Lactate 3.3 H* (0.20-2.00) mmol/L Sodium 137 (136-148) mmol/L Potassium 3.4 L (3.5-5.1) mmol/L Chloride 100 (98-107) mmol/L Carbon Dioxide 27.1 (21.0-32.0) mmol/L BUN 19 H (7.0-18.0) mg/dL Creatinine 0.9 (0.8-1.3) mg/dL Est Cr Clr Drug Dosing 75.28 mL/min Estimated GFR (MDRD) > 60.0 ml/min Glucose 122 H (74-106) mg/dL Calcium 8.4 L (8.5-10.1) mg/dL Total Bilirubin 0.9 (0.2-1.0) mg/dL AST 33 (15-37) IU/L ALT 114 H (14-63) IU/L Alkaline Phosphatase 73 (46-116) U/L Total Protein 5.5 L (6.4-8.2) g/dL Albumin 3.0 L (3.4-5.0) g/dL Globulin 2.5 L (2.6-4.0) g/dL Albumin/Globulin Ratio 1.2 (0.9-1.6) Urine Color Urine Appearance Urine pH (5.0-8.0) Ur Specific [place] (1.001-1.035) Urine Protein (NEGATIVE) mg/dL Urine Glucose (UA) (NEGATIVE) mg/dL Urine Ketones (NEGATIVE) mg/dL Urine Occult Blood (NEGATIVE) Urine Nitrite (NEGATIVE) Urine Bilirubin (NEGATIVE) Urine Urobilinogen (<2.0) EU/dL Ur Leukocyte Esterase (NEGATIVE) Blood Type Antibody Screen 05/13/19 05/13/19 05/13/19 Range/Units 14:00 15:41 17:35 WBC (4.0-11.0) K/uL RBC (4.50-5.90) M/uL Hgb (13.0-17.0) g/dL Hct (38.0-50.0) % MCV (80.0-98.0) fL MCH (27.0-32.0) pg MCHC (31.0-37.0) g/dL RDW Std Deviation (28.0-62.0) fl RDW Coeff of Harika (11.0-15.0) % Plt Count (150-400) K/uL MPV (7.40-12.00) fL Add Manual Diff Neutrophils % (Manual) (48.0-80.0) % Lymphocytes % (Manual) (16.0-40.0) % Monocytes % (Manual) (0.0-15.0) % Nucleated RBC % /100WBC Absolute Seg Neuts (1.4-5.7) Lymphocytes # (Manual) (0.6-2.4) Monocytes # (Manual) (0.0-0.8) Nucleated RBCs # K/uL Lactate 1.7 (0.20-2.00) mmol/L Sodium (136-148) mmol/L Potassium (3.5-5.1) mmol/L Chloride (98-107) mmol/L Carbon Dioxide (21.0-32.0) mmol/L BUN (7.0-18.0) mg/dL Creatinine (0.8-1.3) mg/dL Est Cr Clr Drug Dosing mL/min Estimated GFR (MDRD) ml/min Glucose (74-106) mg/dL Calcium (8.5-10.1) mg/dL Total Bilirubin (0.2-1.0) mg/dL AST (15-37) IU/L ALT (14-63) IU/L Alkaline Phosphatase (46-116) U/L Total Protein (6.4-8.2) g/dL Albumin (3.4-5.0) g/dL Globulin (2.6-4.0) g/dL Albumin/Globulin Ratio (0.9-1.6) Urine Color YELLOW Urine Appearance CLEAR Urine pH 5.5 (5.0-8.0) Ur Specific [place] 1.025 (1.001-1.035) Urine Protein NEGATIVE (NEGATIVE) mg/dL Urine Glucose (UA) NEGATIVE (NEGATIVE) mg/dL Urine Ketones NEGATIVE (NEGATIVE) mg/dL Urine Occult Blood NEGATIVE (NEGATIVE) Urine Nitrite NEGATIVE (NEGATIVE) Urine Bilirubin NEGATIVE (NEGATIVE) Urine Urobilinogen 0.2 (<2.0) EU/dL Ur Leukocyte Esterase NEGATIVE (NEGATIVE) Blood Type AB POSITIVE Antibody Screen NEGATIVE 05/14/19 05/14/19 Range/Units 06:22 06:22 WBC 0.03 L (4.0-11.0) K/uL RBC 2.51 L (4.50-5.90) M/uL Hgb 6.6 L (13.0-17.0) g/dL Hct 20.8 L (38.0-50.0) % MCV 82.9 (80.0-98.0) fL MCH 26.3 L (27.0-32.0) pg MCHC 31.7 (31.0-37.0) g/dL RDW Std Deviation 56.1 (28.0-62.0) fl RDW Coeff of Harika 18 H (11.0-15.0) % Plt Count 30 L (150-400) K/uL MPV 8.30 (7.40-12.00) fL Add Manual Diff YES Neutrophils % (Manual) 1 L (48.0-80.0) % Lymphocytes % (Manual) 9 L (16.0-40.0) % Monocytes % (Manual) (0.0-15.0) % Nucleated RBC % 0.0 /100WBC Absolute Seg Neuts 0.0 L (1.4-5.7) Lymphocytes # (Manual) 0.0 L (0.6-2.4) Monocytes # (Manual) (0.0-0.8) Nucleated RBCs # 0 K/uL Lactate (0.20-2.00) mmol/L Sodium 139 (136-148) mmol/L Potassium 3.1 L (3.5-5.1) mmol/L Chloride 104 (98-107) mmol/L Carbon Dioxide 27.5 (21.0-32.0) mmol/L BUN 18 (7.0-18.0) mg/dL Creatinine 0.9 (0.8-1.3) mg/dL Est Cr Clr Drug Dosing 75.03 mL/min Estimated GFR (MDRD) > 60.0 ml/min Glucose 123 H (74-106) mg/dL Calcium 7.7 L (8.5-10.1) mg/dL Total Bilirubin 1.0 (0.2-1.0) mg/dL AST 25 (15-37) IU/L ALT 76 H (14-63) IU/L Alkaline Phosphatase 53 (46-116) U/L Total Protein 4.6 L (6.4-8.2) g/dL Albumin 2.4 L (3.4-5.0) g/dL Globulin 2.2 L (2.6-4.0) g/dL Albumin/Globulin Ratio 1.1 (0.9-1.6) Urine Color Urine Appearance Urine pH (5.0-8.0) Ur Specific [place] (1.001-1.035) Urine Protein (NEGATIVE) mg/dL Urine Glucose (UA) (NEGATIVE) mg/dL Urine Ketones (NEGATIVE) mg/dL Urine Occult Blood (NEGATIVE) Urine Nitrite (NEGATIVE) Urine Bilirubin (NEGATIVE) Urine Urobilinogen (<2.0) EU/dL Ur Leukocyte Esterase (NEGATIVE) Blood Type Antibody Screen Darryn Results Last 24 Hours: Microbiology 05/13/19 19:08 C. difficile Antigen & Toxins A,B - Final Stool / Feces 05/13/19 15:53 Group A Streptococcus Rapid Screen - Final Throat NEGATIVE STREP A SCREEN REFERENCE RANGE: NEGATIVE 05/13/19 15:53 Influenza Type A Antigen Screen - Final Nasopharyngeal Swab NEGATIVE INFLUENZA A VIRUS AG REFERENCE RANGE: NEGATIVE Influenza Type B Antigen Screen - Final NEGATIVE INFLUENZA B VIRUS AG REFERENCE RANGE: NEGATIVE Med Orders - Current: Current Medications Acetaminophen (Tylenol) 650 mg PO Q4H PRN PRN Reason: Pain/Fever Last Admin: 05/14/19 10:11 Dose: 650 mg Al Hydroxide/Mg Hydroxide (Mag-Al Plus) 30 ml PO Q4H PRN PRN Reason: Abdominal Pain Amlodipine Besylate (Norvasc) 5 mg PO DAILY [facility] Last Admin: 05/14/19 09:42 Dose: 5 mg Fentanyl (Duragesic) 25 mcg TRDERM Q72H [facility] Fentanyl (Duragesic) 12 mcg TRDERM Q72H [facility] Finasteride (Proscar) 5 mg PO DAILY [facility] Last Admin: 05/14/19 09:43 Dose: 5 mg Sodium Chloride (Normal Saline) 1,000 mls @ 999 mls/hr IV STAT [facility] Last Admin: 05/13/19 14:58 Dose: 999 mls/hr Sodium Chloride (Normal Saline) 1,000 mls @ 125 mls/hr IV ASDIRECTED [facility] Last Admin: 05/14/19 02:49 Dose: 125 mls/hr Piperacillin Sod/Tazobactam (Sod 4.5 gm/ Sodium Chloride) 100 mls @ 100 mls/hr IV Q6H [facility] Last Admin: 05/14/19 09:42 Dose: 100 mls/hr Losartan Potassium (Cozaar) 50 mg PO DAILY [facility] Last Admin: 05/14/19 09:42 Dose: 50 mg Morphine Sulfate (Morphine) 15 mg PO Q4H PRN PRN Reason: Pain Ondansetron HCl (Zofran) 4 mg IVPUSH Q4H PRN PRN Reason: Nausea/Vomiting Last Admin: 05/14/19 09:48 Dose: 4 mg Tamsulosin HCl (Flomax) 0.4 mg PO DAILY [facility] Last Admin: 05/14/19 09:42 Dose: 0.4 mg Discontinued Medications Acetaminophen (Tylenol Extra Strength) 1,000 mg PO ONETIME ONE Stop: 05/13/19 15:49 Last Admin: 05/13/19 15:54 Dose: 1,000 mg Fentanyl (Duragesic) 25 mcg TRDERM Q72H [facility] Last Admin: 05/13/19 19:16 Dose: Not Given Fentanyl (Duragesic) 25 mcg TRDERM Q72H [facility] Last Admin: 05/14/19 07:13 Dose: Not Given Fentanyl (Duragesic) 12 mcg TRDERM Q72H [facility] Last Admin: 05/14/19 07:13 Dose: Not Given Sodium Chloride (Normal Saline) 1,000 mls @ 999 mls/hr IV STAT ONE Stop: 05/13/19 14:37 Last Admin: 05/13/19 14:01 Dose: 999 mls/hr Piperacillin Sod/Tazobactam (Sod 4.5 gm/ Sodium Chloride) 100 mls @ 100 mls/hr IV ONETIME ONE Stop: 05/13/19 15:49 Last Admin: 05/13/19 14:59 Dose: 100 mls/hr Piperacillin Sod/Tazobactam (Sod 4.5 gm/ Sodium Chloride) 100 mls @ 100 mls/hr IV Q6H [facility] Last Admin: 05/13/19 19:17 Dose: Not Given Iopamidol (Isovue Multipack-370 (76%)) 100 ml IVPUSH ONETIME STA Stop: 05/13/19 17:47 Last Admin: 05/13/19 17:47 Dose: 100 ml Non-Formulary Medication (Fentanyl [Fentanyl]) 12 mcg TRDERM Q72H [facility] Last Admin: 05/13/19 19:17 Dose: Not Given - Exam General: Alert, Oriented Neck: Supple Lungs: Clear to Auscultation, Normal Respiratory Effort Cardiovascular: Regular Rate, Regular Rhythm GI/Abdominal Exam: Normal Bowel Sounds, Soft Extremities: Non-Tender, No Pedal Edema Skin: Warm, Dry, Intact Sepsis Event Note - Evaluation Sepsis Screening Result: Severe Sepsis Risk - Focused Exam Vital Signs: Vital Signs Temp Temp Temp Pulse Resp BP BP 05/14/19 11:36 38.0 C 97 20 130/69 05/14/19 11:04 38.7 C H 05/14/19 10:15 99 140/74 05/14/19 10:11 38.6 C H 05/14/19 10:03 38.6 C H 05/14/19 09:42 140/65 05/14/19 09:41 37.4 C 05/14/19 07:35 37.2 C 99 20 140/65 05/14/19 04:15 36.6 C 90 18 133/71 05/14/19 01:58 37.8 C Pulse Ox 05/14/19 11:36 94 L 05/14/19 11:04 05/14/19 10:15 05/14/19 10:11 05/14/19 10:03 05/14/19 09:42 05/14/19 09:41 05/14/19 07:35 94 L 05/14/19 04:15 94 L 05/14/19 01:58 Date Exam was Performed: 05/14/19 Time Exam was Performed: 12:02 - Problem List Review Problem List Initiated/Reviewed/Updated: Yes - My Orders Last 24 Hours: My Active Orders 05/13/19 15:46 Telemetry Monitoring [Cardiac Monitoring] [RC] Q8H 05/14/19 12:02 Potassium Chloride [Klor-Con M20] 40 meq PO ONETIME ONE - Plan Plan:: 69 yo male with pmh of Tcell lymphoma receiving chemotherapy who was admitted for neutropenic fever, no source of infection has been identified, cultures pending and CT scan of abdomen and pelvis show no new findings. PAtient is pancytopenia and has Hgb of 6.6 so will transfuse pRBC.
[2019-05-14] MEDS: fentaNYL 25 MCG/HR Transdermal Patch TRDERM SCH (16:17)
[2019-05-14] MEDS: fentaNYL 12 MCG/HR Transdermal Patch TRDERM SCH (16:33)
[2019-05-14] MEDS: Morphine 15 MG Tab PO PRN (22:42)
[2019-05-15] MEDS: Aluminum Hydroxide/Magnesium Hydroxide/Simethicone Susp 30 ML Cup PO PRN ×4 (01:07→22:21)
[2019-05-15] MEDS: Piperacillin/Tazobactam 4.5 GM in Sodium Chloride 0.9% 100 ML IV SCH ×5 (03:16→20:21)
[2019-05-15 06:35] LABS: BLOOD UREA NITROGEN,BUN 20 mg/dL (7.0-18.0); CARBON DIOXIDE,CO2 26.7 mmol/L (21.0-32.0); CHLORIDE,CL 104 mmol/L (98-107); GLUCOSE RANDOM 131 mg/dL (74-106); POTASSIUM,K 3.4 mmol/L (3.5-5.1); SODIUM,NA 138 mmol/L (136-148)
[2019-05-15] MEDS ORDERED: Potassium Chloride 20 MEQ Tab.ER PO ONE (06:43)
[2019-05-15] MEDS: Ondansetron 4 MG/2 ML SDV IVPUSH PRN ×3 (07:28→22:12)
[2019-05-15] MEDS: Acetaminophen 325 MG Tab PO PRN ×2 (07:28→20:01)
[2019-05-15] MEDS ORDERED: Prochlorperazine 10 MG/2 ML SDV IVPUSH PRN (07:52)
[2019-05-15] MEDS ORDERED: Magnesium Sulfate/Water 4 GM in Premix Bag 1 BAG IV ONE (07:52)
--- NOTE | 2019-05-15 08:30 | PCM.PN ---
- General Info Date of Service: 05/15/19 Subjective Update: Patient admitted for neutropenic fever, no fevers yesterday but spiked temp this morning of 101.5, no source of infection at this point. Feels like abdomen is full but having diarrhea. - Review of Systems General: Reports: Fever, Fatigue HEENT: Reports: No Symptoms Pulmonary: Reports: No Symptoms Cardiovascular: Reports: No Symptoms Gastrointestinal: Reports: Diarrhea. Denies: Abdominal Pain Genitourinary: Reports: No Symptoms Musculoskeletal: Reports: No Symptoms Skin: Reports: No Symptoms Neurological: Reports: No Symptoms Psychiatric: Reports: No Symptoms - Patient Data Vitals - Most Recent: Last Vital Signs Temp 101.5 F H 05/15/19 08:07 Pulse 101 H 05/15/19 08:07 Resp 05/15/19 08:07 BP 146/82 H 05/15/19 08:07 Pulse Ox 93 L 05/15/19 08:07 Weight - Most Recent: 81.7 kg I&O - Last 24 Hours: Intake & Output 05/14/19 05/15/19 05/15/19 22:59 06:59 14:59 Intake Total 2324 1106 Output Total 850 1350 Balance 1474 -244 Lab Results Last 24 Hours: Laboratory Results - last 24 hr 05/13/19 05/15/19 05/15/19 Range/Units 14:00 06:10 06:10 WBC 0.09 L (4.0-11.0) K/uL RBC 3.21 L (4.50-5.90) M/uL Hgb 8.9 L (13.0-17.0) g/dL Hct 26.6 L (38.0-50.0) % MCV 82.9 (80.0-98.0) fL MCH 27.7 (27.0-32.0) pg MCHC 33.5 (31.0-37.0) g/dL RDW Std Deviation 52.7 (28.0-62.0) fl RDW Coeff of Harika 17 H (11.0-15.0) % Plt Count 26 L (150-400) K/uL Add Manual Diff YES Neutrophils % (Manual) 18 L (48.0-80.0) % Lymphocytes % (Manual) 66 H (16.0-40.0) % Monocytes % (Manual) 14 (0.0-15.0) % Basophils % (Manual) 2 H (0.0-1.5) % Nucleated RBC % 0.0 /100WBC Absolute Seg Neuts 0.0 L (1.4-5.7) Lymphocytes # (Manual) 0.1 L (0.6-2.4) Monocytes # (Manual) 0.0 (0.0-0.8) Basophils # (Manual) 0.0 (0.0-0.1) Absolute Metamyelocyte 0 Nucleated RBCs # 0 K/uL Sodium 138 (136-148) mmol/L Potassium 3.4 L (3.5-5.1) mmol/L Chloride 104 (98-107) mmol/L Carbon Dioxide 26.7 (21.0-32.0) mmol/L BUN 20 H (7.0-18.0) mg/dL Creatinine 0.9 (0.8-1.3) mg/dL Est Cr Clr Drug Dosing 75.03 mL/min Estimated GFR (MDRD) > 60.0 ml/min Glucose 131 H (74-106) mg/dL Calcium 7.6 L (8.5-10.1) mg/dL Magnesium (1.8-2.4) mg/dL Blood Type AB POSITIVE Antibody Screen NEGATIVE Crossmatch See Detail 05/15/19 Range/Units 06:10 WBC (4.0-11.0) K/uL RBC (4.50-5.90) M/uL Hgb (13.0-17.0) g/dL Hct (38.0-50.0) % MCV (80.0-98.0) fL MCH (27.0-32.0) pg MCHC (31.0-37.0) g/dL RDW Std Deviation (28.0-62.0) fl RDW Coeff of Harika (11.0-15.0) % Plt Count (150-400) K/uL Add Manual Diff Neutrophils % (Manual) (48.0-80.0) % Lymphocytes % (Manual) (16.0-40.0) % Monocytes % (Manual) (0.0-15.0) % Basophils % (Manual) (0.0-1.5) % Nucleated RBC % /100WBC Absolute Seg Neuts (1.4-5.7) Lymphocytes # (Manual) (0.6-2.4) Monocytes # (Manual) (0.0-0.8) Basophils # (Manual) (0.0-0.1) Absolute Metamyelocyte Nucleated RBCs # K/uL Sodium (136-148) mmol/L Potassium (3.5-5.1) mmol/L Chloride (98-107) mmol/L Carbon Dioxide (21.0-32.0) mmol/L BUN (7.0-18.0) mg/dL Creatinine (0.8-1.3) mg/dL Est Cr Clr Drug Dosing mL/min Estimated GFR (MDRD) ml/min Glucose (74-106) mg/dL Calcium (8.5-10.1) mg/dL Magnesium 1.6 L (1.8-2.4) mg/dL Blood Type Antibody Screen Crossmatch Darryn Results Last 24 Hours: Microbiology 05/13/19 16:36 Aerobic Blood Culture - Preliminary Blood - Venous NO GROWTH AFTER 1 DAY Anaerobic Blood Culture - Preliminary NO GROWTH AFTER 1 DAY 05/13/19 14:00 Aerobic Blood Culture - Preliminary Blood - Venous - Lab Draw NO GROWTH AFTER 1 DAY Anaerobic Blood Culture - Preliminary NO GROWTH AFTER 1 DAY 05/13/19 13:41 Aerobic Blood Culture - Preliminary Blood - Venous NO GROWTH AFTER 1 DAY Anaerobic Blood Culture - Preliminary NO GROWTH AFTER 1 DAY Med Orders - Current: Current Medications Acetaminophen (Tylenol) 650 mg PO Q4H PRN PRN Reason: Pain/Fever Last Admin: 05/15/19 07:28 Dose: 650 mg Al Hydroxide/Mg Hydroxide (Mag-Al Plus) 30 ml PO Q4H PRN PRN Reason: Abdominal Pain Last Admin: 05/15/19 07:37 Dose: 30 ml Amlodipine Besylate (Norvasc) 5 mg PO DAILY [facility] Last Admin: 05/14/19 09:42 Dose: 5 mg Fentanyl (Duragesic) 25 mcg TRDERM Q72H [facility] Last Admin: 05/14/19 16:17 Dose: 25 mcg Fentanyl (Duragesic) 12 mcg TRDERM Q72H [facility] Last Admin: 05/14/19 16:33 Dose: 12 mcg Finasteride (Proscar) 5 mg PO DAILY [facility] Last Admin: 05/14/19 09:43 Dose: 5 mg Sodium Chloride (Normal Saline) 1,000 mls @ 125 mls/hr IV ASDIRECTED [facility] Last Admin: 05/14/19 20:30 Dose: 125 mls/hr Piperacillin Sod/Tazobactam (Sod 4.5 gm/ Sodium Chloride) 100 mls @ 100 mls/hr IV Q6H [facility] Last Admin: 05/15/19 03:44 Dose: 100 mls/hr Magnesium Sulfate 4 gm/ Premix 100 mls @ 25 mls/hr IV ONETIME ONE Stop: 05/15/19 11:51 Losartan Potassium (Cozaar) 50 mg PO DAILY [facility] Last Admin: 05/14/19 09:42 Dose: 50 mg Morphine Sulfate (Morphine) 15 mg PO Q4H PRN PRN Reason: Pain Last Admin: 05/14/19 22:42 Dose: 15 mg Ondansetron HCl (Zofran) 4 mg IVPUSH Q4H PRN PRN Reason: Nausea/Vomiting Last Admin: 05/15/19 07:28 Dose: 4 mg Prochlorperazine Edisylate (Compazine) 5 mg IVPUSH Q6H PRN PRN Reason: Nausea/Vomiting Tamsulosin HCl (Flomax) 0.4 mg PO DAILY [facility] Last Admin: 05/14/19 09:42 Dose: 0.4 mg Discontinued Medications Acetaminophen (Tylenol Extra Strength) 1,000 mg PO ONETIME ONE Stop: 05/13/19 15:49 Last Admin: 05/13/19 15:54 Dose: 1,000 mg Fentanyl (Duragesic) 25 mcg TRDERM Q72H [facility] Last Admin: 05/13/19 19:16 Dose: Not Given Fentanyl (Duragesic) 25 mcg TRDERM Q72H [facility] Last Admin: 05/14/19 07:13 Dose: Not Given Fentanyl (Duragesic) 12 mcg TRDERM Q72H [facility] Last Admin: 05/14/19 07:13 Dose: Not Given Sodium Chloride (Normal Saline) 1,000 mls @ 999 mls/hr IV STAT ONE Stop: 05/13/19 14:37 Last Admin: 05/13/19 14:01 Dose: 999 mls/hr Piperacillin Sod/Tazobactam (Sod 4.5 gm/ Sodium Chloride) 100 mls @ 100 mls/hr IV ONETIME ONE Stop: 05/13/19 15:49 Last Admin: 05/13/19 14:59 Dose: 100 mls/hr Sodium Chloride (Normal Saline) 1,000 mls @ 999 mls/hr IV STAT [facility] Last Admin: 05/13/19 14:58 Dose: 999 mls/hr Piperacillin Sod/Tazobactam (Sod 4.5 gm/ Sodium Chloride) 100 mls @ 100 mls/hr IV Q6H [facility] Last Admin: 05/13/19 19:17 Dose: Not Given Piperacillin Sod/Tazobactam (Sod 4.5 gm/ Sodium Chloride) 100 mls @ 100 mls/hr IV Q6H [facility] Last Admin: 05/15/19 03:16 Dose: Not Given Iopamidol (Isovue Multipack-370 (76%)) 100 ml IVPUSH ONETIME STA Stop: 05/13/19 17:47 Last Admin: 05/13/19 17:47 Dose: 100 ml Non-Formulary Medication (Fentanyl [Fentanyl]) 12 mcg TRDERM Q72H [facility] Last Admin: 05/13/19 19:17 Dose: Not Given Potassium Chloride (Klor-Con M20) 40 meq PO ONETIME ONE Stop: 05/14/19 12:03 Last Admin: 05/14/19 12:36 Dose: 40 meq Potassium Chloride (Klor-Con M20) 40 meq PO ONETIME ONE Stop: 05/15/19 06:44 Last Admin: 05/15/19 07:29 Dose: 40 meq - Exam General: Alert, Oriented, Cooperative Lungs: Clear to Auscultation, Normal Respiratory Effort Cardiovascular: Regular Rate, Regular Rhythm GI/Abdominal Exam: Normal Bowel Sounds, Non-Tender, Distended Extremities: No Pedal Edema Skin: Warm, Dry Neurological: No New Focal Deficit Psy/Mental Status: Alert, Normal Affect, Normal Mood Sepsis Event Note - Evaluation Sepsis Screening Result: Severe Sepsis Risk - Focused Exam Vital Signs: Vital Signs Temp Temp Pulse Resp BP Pulse Ox 05/15/19 08:07 101.5 F H 101 H 20 146/82 H 93 L 05/15/19 07:28 101.5 F H 05/15/19 03:17 99.4 F 96 18 142/63 H 97 05/15/19 02:17 99.4 F 93 18 147/68 H 95 05/14/19 23:31 99 F 92 19 126/60 95 01/25/20 23:16 98.6 F 92 20 140/75 94 L 05/14/19 23:05 98.6 F 93 20 146/75 H 95 05/14/19 23:01 98.6 F 93 20 146/75 H 95 05/14/19 22:23 99.5 F 05/14/19 21:00 101.5 F H Date Exam was Performed: 05/15/19 Time Exam was Performed: 10:38 - Problem List Review Problem List Initiated/Reviewed/Updated: Yes - My Orders Last 24 Hours: My Active Orders 05/14/19 09:00 Finasteride [Proscar] 5 mg PO DAILY Losartan [Cozaar] 50 mg PO DAILY Tamsulosin [Flomax] 0.4 mg PO DAILY amLODIPine [Norvasc] 5 mg PO DAILY 05/14/19 17:00 fentaNYL [Duragesic] 12 mcg TRDERM Q72H fentaNYL [Duragesic] 25 mcg TRDERM Q72H 05/15/19 03:00 Piperacillin/Tazobactam [Piperacil-Tazobact] 4.5 gm Sodium Chloride 0.9% [ Normal Saline] 100 ml IV Q6H 05/15/19 07:52 Magnesium Sulfate/Water [Magnesium Sulfate in Water Premix] 4 gm Premix Bag 1 bag IV ONETIME Prochlorperazine [Compazine] 5 mg IVPUSH Q6H PRN - Plan Plan:: 1. Neutropenic fever with Tcell lymphoma- WBC improving from 0.03 to 0.09. Continue Zosyn. Blood cultures negative. Spiked new temp today, repeat blood cultures. Continue IVF. Tylenol for fever. 2. Pancytopenia s/p transfusion 2 units PRBCs- secondary to chemotherapy- WBC and hemoglobin improving. Platelets low at 26. Continue to monitor. 3. Hypomagnesemia- replace and recheck in AM 4. Hypokalemia- replace and recheck in AM 5. Chronic conditions- HTN, hyperlipidemia, BPH- continue home meds
[2019-05-15] MEDS: Losartan 50 MG Tab PO SCH (08:58)
[2019-05-15] MEDS: Finasteride 5 MG Tab PO SCH (08:59)
[2019-05-15] MEDS: amLODIPine 5 MG Tab PO SCH (08:59)
[2019-05-15] MEDS: Tamsulosin 0.4 MG Cap.ER PO SCH (08:59)
[2019-05-15] MEDS: Sodium Chloride 0.9% 1,000 ML IV SCH (12:49)
[2019-05-15] MEDS ORDERED: Loperamide 2 MG Cap PO PRN (12:53)
[2019-05-15] MEDS: Morphine 15 MG Tab PO PRN (17:08)
[2019-05-16] MEDS: Piperacillin/Tazobactam 4.5 GM in Sodium Chloride 0.9% 100 ML IV SCH ×4 (03:24→20:10)
[2019-05-16] MEDS: Acetaminophen 325 MG Tab PO PRN ×3 (05:52→17:04)
[2019-05-16 06:27] LABS: BLOOD UREA NITROGEN,BUN 18 mg/dL (7.0-18.0); CARBON DIOXIDE,CO2 25.3 mmol/L (21.0-32.0); CHLORIDE,CL 103 mmol/L (98-107); GLUCOSE RANDOM 107 mg/dL (74-106); POTASSIUM,K 3.5 mmol/L (3.5-5.1); SODIUM,NA 136 mmol/L (136-148)
--- NOTE | 2019-05-16 08:11 | PCM.PN ---
- General Info Date of Service: 05/16/19 Subjective Update: Patient reports doing better, able to eat a little, diarrhea improved. Still having fevers. - Review of Systems General: Reports: Fever, Weakness HEENT: Reports: No Symptoms Pulmonary: Reports: No Symptoms Cardiovascular: Reports: No Symptoms Gastrointestinal: Reports: No Symptoms Genitourinary: Reports: No Symptoms Musculoskeletal: Reports: No Symptoms Skin: Reports: No Symptoms Neurological: Reports: No Symptoms Psychiatric: Reports: No Symptoms - Patient Data Vitals - Most Recent: Last Vital Signs Temp 101.1 F H 05/16/19 05:52 Pulse 100 05/16/19 03:21 Resp 20 05/16/19 03:21 BP 141/68 H 05/16/19 03:21 Pulse Ox 94 L 05/16/19 03:21 Weight - Most Recent: 81.7 kg I&O - Last 24 Hours: Intake & Output 05/15/19 05/16/19 05/16/19 22:59 06:59 14:59 Intake Total 2660 600 Output Total 600 400 Balance 2060 200 Lab Results Last 24 Hours: Laboratory Results - last 24 hr 05/16/19 05/16/19 Range/Units 05:40 05:50 WBC 0.16 L (4.0-11.0) K/uL RBC 2.86 L (4.50-5.90) M/uL Hgb 7.7 L (13.0-17.0) g/dL Hct 23.7 L (38.0-50.0) % MCV 82.9 (80.0-98.0) fL MCH 26.9 L (27.0-32.0) pg MCHC 32.5 (31.0-37.0) g/dL RDW Std Deviation 53.9 (28.0-62.0) fl RDW Coeff of Harika 18 H (11.0-15.0) % Plt Count 17 L (150-400) K/uL Add Manual Diff YES Neutrophils % (Manual) 45 L (48.0-80.0) % Lymphocytes % (Manual) 47 H (16.0-40.0) % Monocytes % (Manual) 8 (0.0-15.0) % Nucleated RBC % 0.0 /100WBC Absolute Seg Neuts 0.1 L (1.4-5.7) Lymphocytes # (Manual) 0.1 L (0.6-2.4) Monocytes # (Manual) 0.0 (0.0-0.8) Nucleated RBCs # 0 K/uL Sodium 136 (136-148) mmol/L Potassium 3.5 (3.5-5.1) mmol/L Chloride 103 (98-107) mmol/L Carbon Dioxide 25.3 (21.0-32.0) mmol/L BUN 18 (7.0-18.0) mg/dL Creatinine 1.0 (0.8-1.3) mg/dL Est Cr Clr Drug Dosing 67.53 mL/min Estimated GFR (MDRD) > 60.0 ml/min Glucose 107 H (74-106) mg/dL Calcium 7.3 L (8.5-10.1) mg/dL Magnesium 2.2 (1.8-2.4) mg/dL Darryn Results Last 24 Hours: Microbiology 05/13/19 16:36 Aerobic Blood Culture - Preliminary Blood - Venous NO GROWTH AFTER 2 DAYS Anaerobic Blood Culture - Preliminary NO GROWTH AFTER 2 DAYS 05/13/19 14:00 Aerobic Blood Culture - Preliminary Blood - Venous - Lab Draw NO GROWTH AFTER 2 DAYS Anaerobic Blood Culture - Preliminary NO GROWTH AFTER 2 DAYS 05/13/19 13:41 Aerobic Blood Culture - Preliminary Blood - Venous NO GROWTH AFTER 2 DAYS Anaerobic Blood Culture - Preliminary NO GROWTH AFTER 2 DAYS 05/13/19 15:53 Quick Strep Confirmation Culture - Final Throat NO GROUP A STREP ISOLATED REFERENCE RANGE: NEGATIVE Group A Streptococcus Rapid Screen - Final NEGATIVE STREP A SCREEN REFERENCE RANGE: NEGATIVE Med Orders - Current: Current Medications Acetaminophen (Tylenol) 650 mg PO Q4H PRN PRN Reason: Pain/Fever Last Admin: 05/16/19 05:52 Dose: 650 mg Al Hydroxide/Mg Hydroxide (Mag-Al Plus) 30 ml PO Q4H PRN PRN Reason: Abdominal Pain Last Admin: 05/15/19 22:21 Dose: 30 ml Amlodipine Besylate (Norvasc) 5 mg PO DAILY [facility] Last Admin: 05/15/19 08:59 Dose: 5 mg Fentanyl (Duragesic) 25 mcg TRDERM Q72H [facility] Last Admin: 05/14/19 16:17 Dose: 25 mcg Fentanyl (Duragesic) 12 mcg TRDERM Q72H [facility] Last Admin: 05/14/19 16:33 Dose: 12 mcg Finasteride (Proscar) 5 mg PO DAILY [facility] Last Admin: 05/15/19 08:59 Dose: 5 mg Piperacillin Sod/Tazobactam (Sod 4.5 gm/ Sodium Chloride) 100 mls @ 100 mls/hr IV Q6H [facility] Last Admin: 05/16/19 03:24 Dose: 100 mls/hr Loperamide HCl (Imodium) 2 mg PO Q4H PRN PRN Reason: Diarrhea Last Admin: 05/15/19 13:05 Dose: 2 mg Losartan Potassium (Cozaar) 50 mg PO DAILY [facility] Last Admin: 05/15/19 08:58 Dose: 50 mg Morphine Sulfate (Morphine) 15 mg PO Q4H PRN PRN Reason: Pain Last Admin: 05/15/19 17:08 Dose: 15 mg Ondansetron HCl (Zofran) 4 mg IVPUSH Q4H PRN PRN Reason: Nausea/Vomiting Last Admin: 05/15/19 22:12 Dose: 4 mg Prochlorperazine Edisylate (Compazine) 5 mg IVPUSH Q6H PRN PRN Reason: Nausea/Vomiting Tamsulosin HCl (Flomax) 0.4 mg PO DAILY [facility] Last Admin: 05/15/19 08:59 Dose: 0.4 mg Discontinued Medications Acetaminophen (Tylenol Extra Strength) 1,000 mg PO ONETIME ONE Stop: 05/13/19 15:49 Last Admin: 05/13/19 15:54 Dose: 1,000 mg Fentanyl (Duragesic) 25 mcg TRDERM Q72H [facility] Last Admin: 05/13/19 19:16 Dose: Not Given Fentanyl (Duragesic) 25 mcg TRDERM Q72H [facility] Last Admin: 05/14/19 07:13 Dose: Not Given Fentanyl (Duragesic) 12 mcg TRDERM Q72H [facility] Last Admin: 05/14/19 07:13 Dose: Not Given Sodium Chloride (Normal Saline) 1,000 mls @ 999 mls/hr IV STAT ONE Stop: 05/13/19 14:37 Last Admin: 05/13/19 14:01 Dose: 999 mls/hr Piperacillin Sod/Tazobactam (Sod 4.5 gm/ Sodium Chloride) 100 mls @ 100 mls/hr IV ONETIME ONE Stop: 05/13/19 15:49 Last Admin: 05/13/19 14:59 Dose: 100 mls/hr Sodium Chloride (Normal Saline) 1,000 mls @ 999 mls/hr IV STAT [facility] Last Admin: 05/13/19 14:58 Dose: 999 mls/hr Piperacillin Sod/Tazobactam (Sod 4.5 gm/ Sodium Chloride) 100 mls @ 100 mls/hr IV Q6H [facility] Last Admin: 05/13/19 19:17 Dose: Not Given Sodium Chloride (Normal Saline) 1,000 mls @ 125 mls/hr IV ASDIRECTED [facility] Last Admin: 05/15/19 12:49 Dose: 125 mls/hr Piperacillin Sod/Tazobactam (Sod 4.5 gm/ Sodium Chloride) 100 mls @ 100 mls/hr IV Q6H [facility] Last Admin: 05/15/19 03:16 Dose: Not Given Magnesium Sulfate 4 gm/ Premix 100 mls @ 25 mls/hr IV ONETIME ONE Stop: 05/15/19 11:51 Last Admin: 05/15/19 08:58 Dose: 25 mls/hr Iopamidol (Isovue Multipack-370 (76%)) 100 ml IVPUSH ONETIME STA Stop: 05/13/19 17:47 Last Admin: 05/13/19 17:47 Dose: 100 ml Non-Formulary Medication (Fentanyl [Fentanyl]) 12 mcg TRDERM Q72H [facility] Last Admin: 05/13/19 19:17 Dose: Not Given Potassium Chloride (Klor-Con M20) 40 meq PO ONETIME ONE Stop: 05/14/19 12:03 Last Admin: 05/14/19 12:36 Dose: 40 meq Potassium Chloride (Klor-Con M20) 40 meq PO ONETIME ONE Stop: 05/15/19 06:44 Last Admin: 05/15/19 07:29 Dose: 40 meq - Exam General: Alert, Oriented, Cooperative Lungs: Clear to Auscultation, Normal Respiratory Effort Cardiovascular: Regular Rate, Regular Rhythm GI/Abdominal Exam: Normal Bowel Sounds, Soft, Non-Tender, No Distention Extremities: No Pedal Edema Skin: Warm, Dry Neurological: No New Focal Deficit Psy/Mental Status: Alert, Normal Affect, Normal Mood Sepsis Event Note - Evaluation Sepsis Screening Result: Severe Sepsis Risk - Focused Exam Vital Signs: Vital Signs Temp Temp Pulse Resp BP Pulse Ox 05/16/19 05:52 101.1 F H 05/16/19 03:21 100.2 F 100 20 141/68 H 94 L 05/16/19 00:00 98.5 F 96 20 131/65 95 Date Exam was Performed: 05/16/19 Time Exam was Performed: 11:26 - Problem List Review Problem List Initiated/Reviewed/Updated: Yes - My Orders Last 24 Hours: My Active Orders 05/15/19 07:52 Prochlorperazine [Compazine] 5 mg IVPUSH Q6H PRN 05/15/19 09:22 CULTURE BLOOD [BC] Stat 05/15/19 09:32 CULTURE BLOOD [BC] Stat 05/15/19 12:53 Loperamide [Imodium] 2 mg PO Q4H PRN - Plan Plan:: 1. Neutropenic fever with Tcell lymphoma- WBC improving from 0.09 to 0.16. Continue Zosyn. Blood cultures negative. Still having fevers. Continue IVF. Tylenol for fever. Spoke to Dr. Jones, oncology, who recommended getting US to rule out DVT and giving Neupogen. Thinks the patient is stable to keep in [place]. 2. Pancytopenia s/p transfusion 2 units PRBCs- secondary to chemotherapy- WBC improving, Hemoglobin dropped from 8.9 to 7.7 Platelets dropped from 26 to 17. Will transfuse platelets and PRBCs. Continue to monitor. 3. Hypomagnesemia- resolved 4. Hypokalemia- resolved 5. Chronic conditions- HTN, hyperlipidemia, BPH- continue home meds
[2019-05-16] MEDS: Finasteride 5 MG Tab PO SCH (09:05)
[2019-05-16] MEDS: Tamsulosin 0.4 MG Cap.ER PO SCH (09:05)
[2019-05-16] MEDS: Losartan 50 MG Tab PO SCH (10:42)
[2019-05-16] MEDS: amLODIPine 5 MG Tab PO SCH (10:43)
[2019-05-16] MEDS: Aluminum Hydroxide/Magnesium Hydroxide/Simethicone Susp 30 ML Cup PO PRN (12:58)
[2019-05-16] MEDS: Ondansetron 4 MG/2 ML SDV IVPUSH PRN (12:58)
[2019-05-16] MEDS: Filgrastim 300 MCG/ML SDV SUBCUT SCH (13:14)
--- NOTE | 2019-05-16 13:29 | US ---
Bilateral lower extremity deep venous ultrasound: Duplex and color Doppler evaluation was obtained of the right left common femoral, superficial femoral, popliteal veins. Anterior tibial vein evaluated on the left side and posterior tibial vein was evaluated on the right side. Mild subcutaneous edema is noted. Varicosities were noted by the scanning technologist. Normal Doppler blood flow and compression is seen. Impression: 1. No evidence of deep venous thrombosis within the right or left lower extremities. Diagnostic code #2 This report was dictated in [place] Standard Time
[2019-05-16] MEDS ORDERED: diphenhydrAMINE 25 MG Cap PO ONE (15:38)
[2019-05-16] MEDS: Morphine 15 MG Tab PO PRN (15:38)
[2019-05-17] MEDS: Acetaminophen 325 MG Tab PO PRN ×3 (00:31→17:27)
[2019-05-17] MEDS: Piperacillin/Tazobactam 4.5 GM in Sodium Chloride 0.9% 100 ML IV SCH ×2 (03:10→09:00)
[2019-05-17 06:08] LABS: BLOOD UREA NITROGEN,BUN 17 mg/dL (7.0-18.0); CARBON DIOXIDE,CO2 26.6 mmol/L (21.0-32.0); CHLORIDE,CL 102 mmol/L (98-107); GLUCOSE RANDOM 97 mg/dL (74-106); POTASSIUM,K 3.2 mmol/L (3.5-5.1); SODIUM,NA 136 mmol/L (136-148)
[2019-05-17] MEDS ORDERED: Potassium Chloride 20 MEQ Tab.ER PO ONE ×2 (07:11→21:00)
--- NOTE | 2019-05-17 08:29 | PCM.PN ---
- General Info Date of Service: 05/17/19 Subjective Update: Patient reports he is doing ok. Was able to eat a little more yesterday. Still having fevers. Denies pain. - Review of Systems General: Reports: Fever, Weakness HEENT: Reports: No Symptoms Pulmonary: Reports: No Symptoms Cardiovascular: Reports: No Symptoms Gastrointestinal: Reports: No Symptoms Genitourinary: Reports: No Symptoms Musculoskeletal: Reports: No Symptoms Skin: Reports: No Symptoms Neurological: Reports: No Symptoms Psychiatric: Reports: No Symptoms - Patient Data Vitals - Most Recent: Last Vital Signs Temp 102.2 F H 05/17/19 07:56 Pulse 101 H 05/17/19 07:56 Resp 16 05/17/19 07:56 BP 116/67 05/17/19 07:56 Pulse Ox 94 L 05/17/19 07:56 Weight - Most Recent: 81.7 kg I&O - Last 24 Hours: Intake & Output 05/16/19 05/17/19 05/17/19 22:59 06:59 14:59 Intake Total 1538 1577 Output Total 600 450 Balance 938 1127 Lab Results Last 24 Hours: Laboratory Results - last 24 hr 05/13/19 05/17/19 05/17/19 Range/Units 14:00 05:35 05:35 WBC 0.28 L (4.0-11.0) K/uL RBC 3.06 L (4.50-5.90) M/uL Hgb 8.3 L (13.0-17.0) g/dL Hct 25.1 L (38.0-50.0) % MCV 82.0 (80.0-98.0) fL MCH 27.1 (27.0-32.0) pg MCHC 33.1 (31.0-37.0) g/dL RDW Std Deviation 52.0 (28.0-62.0) fl RDW Coeff of Harika 17 H (11.0-15.0) % Plt Count 20 L (150-400) K/uL MPV 10.20 (7.40-12.00) fL Neut % (Auto) PLATE WASHER Lymph % (Auto) PLATE WASHER [place] % (Auto) PLATE WASHER Eos % (Auto) PLATE WASHER Baso % (Auto) PLATE WASHER Neut # (Auto) PLATE WASHER Lymph # (Auto) PLATE WASHER [place] # (Auto) PLATE WASHER Eos # (Auto) PLATE WASHER Baso # (Auto) PLATE WASHER Add Manual Diff YES Nucleated RBC % 0.0 /100WBC Nucleated RBCs # 0 K/uL Differential Comment Sodium 136 (136-148) mmol/L Potassium 3.2 L (3.5-5.1) mmol/L Chloride 102 (98-107) mmol/L Carbon Dioxide 26.6 (21.0-32.0) mmol/L BUN 17 (7.0-18.0) mg/dL Creatinine 1.0 (0.8-1.3) mg/dL Est Cr Clr Drug Dosing 67.53 mL/min Estimated GFR (MDRD) > 60.0 ml/min Glucose 97 (74-106) mg/dL Calcium 7.4 L (8.5-10.1) mg/dL Magnesium (1.8-2.4) mg/dL Blood Type AB POSITIVE Antibody Screen NEGATIVE Crossmatch See Detail 05/17/19 Range/Units 05:35 WBC (4.0-11.0) K/uL RBC (4.50-5.90) M/uL Hgb (13.0-17.0) g/dL Hct (38.0-50.0) % MCV (80.0-98.0) fL MCH (27.0-32.0) pg MCHC (31.0-37.0) g/dL RDW Std Deviation (28.0-62.0) fl RDW Coeff of Harika (11.0-15.0) % Plt Count (150-400) K/uL MPV (7.40-12.00) fL Neut % (Auto) Lymph % (Auto) [place] % (Auto) Eos % (Auto) Baso % (Auto) Neut # (Auto) Lymph # (Auto) [place] # (Auto) Eos # (Auto) Baso # (Auto) Add Manual Diff Nucleated RBC % /100WBC Nucleated RBCs # K/uL Differential Comment Sodium (136-148) mmol/L Potassium (3.5-5.1) mmol/L Chloride (98-107) mmol/L Carbon Dioxide (21.0-32.0) mmol/L BUN (7.0-18.0) mg/dL Creatinine (0.8-1.3) mg/dL Est Cr Clr Drug Dosing mL/min Estimated GFR (MDRD) ml/min Glucose (74-106) mg/dL Calcium (8.5-10.1) mg/dL Magnesium 1.9 (1.8-2.4) mg/dL Blood Type Antibody Screen Crossmatch Darryn Results Last 24 Hours: Microbiology 05/13/19 16:36 Aerobic Blood Culture - Preliminary Blood - Venous NO GROWTH AFTER 3 DAYS Anaerobic Blood Culture - Preliminary NO GROWTH AFTER 3 DAYS 05/13/19 14:00 Aerobic Blood Culture - Preliminary Blood - Venous - Lab Draw NO GROWTH AFTER 3 DAYS Anaerobic Blood Culture - Preliminary NO GROWTH AFTER 3 DAYS 05/13/19 13:41 Aerobic Blood Culture - Preliminary Blood - Venous NO GROWTH AFTER 3 DAYS Anaerobic Blood Culture - Preliminary NO GROWTH AFTER 3 DAYS 05/15/19 09:32 Aerobic Blood Culture - Preliminary Blood NO GROWTH AFTER 1 DAY Anaerobic Blood Culture - Preliminary NO GROWTH AFTER 1 DAY 05/15/19 09:22 Aerobic Blood Culture - Preliminary Blood NO GROWTH AFTER 1 DAY Anaerobic Blood Culture - Preliminary NO GROWTH AFTER 1 DAY Med Orders - Current: Current Medications Acetaminophen (Tylenol) 650 mg PO Q4H PRN PRN Reason: Pain/Fever Last Admin: 05/17/19 07:18 Dose: 650 mg Al Hydroxide/Mg Hydroxide (Mag-Al Plus) 30 ml PO Q4H PRN PRN Reason: Abdominal Pain Last Admin: 05/16/19 12:58 Dose: 30 ml Amlodipine Besylate (Norvasc) 5 mg PO DAILY [facility] Last Admin: 05/16/19 10:43 Dose: Not Given Fentanyl (Duragesic) 25 mcg TRDERM Q72H [facility] Last Admin: 05/14/19 16:17 Dose: 25 mcg Fentanyl (Duragesic) 12 mcg TRDERM Q72H [facility] Last Admin: 05/14/19 16:33 Dose: 12 mcg Filgrastim (Neupogen) 480 mcg SUBCUT DAILY [facility] Last Admin: 05/16/19 13:14 Dose: 480 mcg Finasteride (Proscar) 5 mg PO DAILY [facility] Last Admin: 05/16/19 09:05 Dose: 5 mg Piperacillin Sod/Tazobactam (Sod 4.5 gm/ Sodium Chloride) 100 mls @ 100 mls/hr IV Q6H [facility] Last Admin: 05/17/19 03:10 Dose: 100 mls/hr Loperamide HCl (Imodium) 2 mg PO Q4H PRN PRN Reason: Diarrhea Last Admin: 05/15/19 13:05 Dose: 2 mg Losartan Potassium (Cozaar) 50 mg PO DAILY [facility] Last Admin: 05/16/19 10:42 Dose: Not Given Morphine Sulfate (Morphine) 15 mg PO Q4H PRN PRN Reason: Pain Last Admin: 05/16/19 15:38 Dose: 15 mg Ondansetron HCl (Zofran) 4 mg IVPUSH Q4H PRN PRN Reason: Nausea/Vomiting Last Admin: 05/16/19 12:58 Dose: 4 mg Prochlorperazine Edisylate (Compazine) 5 mg IVPUSH Q6H PRN PRN Reason: Nausea/Vomiting Tamsulosin HCl (Flomax) 0.4 mg PO DAILY [facility] Last Admin: 05/16/19 09:05 Dose: 0.4 mg Discontinued Medications Acetaminophen (Tylenol Extra Strength) 1,000 mg PO ONETIME ONE Stop: 05/13/19 15:49 Last Admin: 05/13/19 15:54 Dose: 1,000 mg Diphenhydramine HCl (Benadryl) 25 mg PO ONETIME ONE Stop: 05/16/19 15:39 Last Admin: 05/16/19 15:57 Dose: 25 mg Fentanyl (Duragesic) 25 mcg TRDERM Q72H [facility] Last Admin: 05/13/19 19:16 Dose: Not Given Fentanyl (Duragesic) 25 mcg TRDERM Q72H [facility] Last Admin: 05/14/19 07:13 Dose: Not Given Fentanyl (Duragesic) 12 mcg TRDERM Q72H [facility] Last Admin: 05/14/19 07:13 Dose: Not Given Sodium Chloride (Normal Saline) 1,000 mls @ 999 mls/hr IV STAT ONE Stop: 05/13/19 14:37 Last Admin: 05/13/19 14:01 Dose: 999 mls/hr Piperacillin Sod/Tazobactam (Sod 4.5 gm/ Sodium Chloride) 100 mls @ 100 mls/hr IV ONETIME ONE Stop: 05/13/19 15:49 Last Admin: 05/13/19 14:59 Dose: 100 mls/hr Sodium Chloride (Normal Saline) 1,000 mls @ 999 mls/hr IV STAT [facility] Last Admin: 05/13/19 14:58 Dose: 999 mls/hr Piperacillin Sod/Tazobactam (Sod 4.5 gm/ Sodium Chloride) 100 mls @ 100 mls/hr IV Q6H [facility] Last Admin: 05/13/19 19:17 Dose: Not Given Sodium Chloride (Normal Saline) 1,000 mls @ 125 mls/hr IV ASDIRECTED [facility] Last Admin: 05/15/19 12:49 Dose: 125 mls/hr Piperacillin Sod/Tazobactam (Sod 4.5 gm/ Sodium Chloride) 100 mls @ 100 mls/hr IV Q6H [facility] Last Admin: 05/15/19 03:16 Dose: Not Given Magnesium Sulfate 4 gm/ Premix 100 mls @ 25 mls/hr IV ONETIME ONE Stop: 05/15/19 11:51 Last Admin: 05/15/19 08:58 Dose: 25 mls/hr Iopamidol (Isovue Multipack-370 (76%)) 100 ml IVPUSH ONETIME STA Stop: 05/13/19 17:47 Last Admin: 05/13/19 17:47 Dose: 100 ml Non-Formulary Medication (Fentanyl [Fentanyl]) 12 mcg TRDERM Q72H [facility] Last Admin: 05/13/19 19:17 Dose: Not Given Potassium Chloride (Klor-Con M20) 40 meq PO ONETIME ONE Stop: 05/14/19 12:03 Last Admin: 05/14/19 12:36 Dose: 40 meq Potassium Chloride (Klor-Con M20) 40 meq PO ONETIME ONE Stop: 05/15/19 06:44 Last Admin: 05/15/19 07:29 Dose: 40 meq Potassium Chloride (Klor-Con M20) 40 meq PO ONETIME ONE Stop: 05/17/19 07:12 Last Admin: 05/17/19 07:18 Dose: 40 meq - Exam Quality Assessment: No: Supplemental Oxygen General: Alert, Oriented, Cooperative Lungs: Clear to Auscultation, Normal Respiratory Effort Cardiovascular: Regular Rate, Regular Rhythm GI/Abdominal Exam: Normal Bowel Sounds, Soft, Non-Tender, No Distention Extremities: No Pedal Edema Skin: Warm, Dry Neurological: No New Focal Deficit Psy/Mental Status: Alert, Normal Affect, Normal Mood Sepsis Event Note - Evaluation Sepsis Screening Result: No Definite Risk - Focused Exam Vital Signs: Vital Signs Temp Temp Pulse Pulse Resp BP BP 05/17/19 07:56 102.2 F H 101 H 16 116/67 05/17/19 07:18 102.2 F H 05/17/19 04:00 99.4 F 96 18 128/72 05/17/19 01:50 101.9 F H 98 16 106/59 L 05/17/19 00:50 102.1 F H 101 H 16 116/57 L 05/17/19 00:31 100.3 F 05/16/19 22:47 99.4 F 96 18 135/63 05/16/19 22:32 98.5 F 97 18 128/79 05/16/19 22:17 97.9 F 91 18 126/59 L 05/16/19 22:15 97.9 F 91 18 126/59 L 05/16/19 21:38 97.1 F 99 18 128/61 Pulse Ox 05/17/19 07:56 94 L 05/17/19 07:18 05/17/19 04:00 94 L 05/17/19 01:50 05/17/19 00:50 05/17/19 00:31 05/16/19 22:47 05/16/19 22:32 05/16/19 22:17 05/16/19 22:15 05/16/19 21:38 97 Date Exam was Performed: 05/17/19 Time Exam was Performed: 11:16 - Problem List Review Problem List Initiated/Reviewed/Updated: Yes - My Orders Last 24 Hours: My Active Orders 05/16/19 10:47 PLATELETS AP[facility] [BBK] Routine Transfuse Platelets [COMM] Stat Transfuse Red Blood Cells [COMM] Routine 05/16/19 11:30 Filgrastim [Neupogen] 480 mcg SUBCUT DAILY - Plan Plan:: 1. Neutropenic fever with Tcell lymphoma- Received Neupogen yesterday. WBC improving from 0.16 to 0.28. Blood cultures negative. Still having fevers, will switch antibiotics for better coverage from Zosyn to Meropenem. Tylenol for fever. Per Dr. Jones's recommendation, ruled out DVT as possible source of fever. 2. Pancytopenia s/p transfusion 4 units PRBCs- secondary to chemotherapy- WBC improving, Hemoglobin improved from 7.7 to 8.3 Platelets at 20, will receive platelets today. Continue to monitor. 3. Hypokalemia- replaced, recheck in AM 4. Chronic conditions- HTN, hyperlipidemia, BPH- continue home meds
[2019-05-17] MEDS: Finasteride 5 MG Tab PO SCH (08:53)
[2019-05-17] MEDS: amLODIPine 5 MG Tab PO SCH (08:54)
[2019-05-17] MEDS: Tamsulosin 0.4 MG Cap.ER PO SCH (08:55)
[2019-05-17] MEDS: Losartan 50 MG Tab PO SCH (08:56)
[2019-05-17] MEDS: Filgrastim 300 MCG/ML SDV SUBCUT SCH (08:57)
[2019-05-17] MEDS: Morphine 15 MG Tab PO PRN ×2 (10:07→17:26)
[2019-05-17] MEDS ORDERED: Meropenem 2 GM in Sodium Chloride 0.9% 100 ML IV SCH (11:00)
[2019-05-17] MEDS: fentaNYL 25 MCG/HR Transdermal Patch TRDERM SCH (17:32)
[2019-05-17] MEDS: fentaNYL 12 MCG/HR Transdermal Patch TRDERM SCH (17:34)
[2019-05-17] MEDS: Meropenem 2 GM in Sodium Chloride 0.9% 100 ML IV SCH (21:55)
[2019-05-17] MEDS ORDERED: Lactated Ringers 1,000 ML IV ONE (21:59)
[2019-05-17] MEDS ORDERED: Diltiazem 25 MG/5 ML SDV IVPUSH ONE (22:00)
[2019-05-17] MEDS ORDERED: Magnesium Sulfate/Water 2 GM in Premix Bag 1 BAG IV ONE (22:03)
[2019-05-17] MEDS: Aluminum Hydroxide/Magnesium Hydroxide/Simethicone Susp 30 ML Cup PO PRN (22:08)
[2019-05-18] MEDS ORDERED: propofoL 100 ML ONE (01:43)
[2019-05-18] MEDS: Acetaminophen 325 MG Tab PO PRN ×2 (04:18→19:41)
[2019-05-18] MEDS: Meropenem 2 GM in Sodium Chloride 0.9% 100 ML IV SCH ×3 (04:20→20:33)
[2019-05-18 06:18] LABS: BLOOD UREA NITROGEN,BUN 13 mg/dL (7.0-18.0); CARBON DIOXIDE,CO2 26.7 mmol/L (21.0-32.0); CHLORIDE,CL 100 mmol/L (98-107); GLUCOSE RANDOM 93 mg/dL (74-106); POTASSIUM,K 3.4 mmol/L (3.5-5.1); SODIUM,NA 135 mmol/L (136-148)
[2019-05-18] MEDS ORDERED: Potassium Chloride 20 MEQ Tab.ER PO ONE (07:23)
[2019-05-18] MEDS: Tamsulosin 0.4 MG Cap.ER PO SCH (08:24)
[2019-05-18] MEDS: Losartan 50 MG Tab PO SCH (08:24)
[2019-05-18] MEDS: amLODIPine 5 MG Tab PO SCH (08:25)
[2019-05-18] MEDS: Finasteride 5 MG Tab PO SCH (08:25)
[2019-05-18] MEDS ORDERED: Potassium Chloride 10% 20 MEQ/15 ML Soln 30 ML UD Cup PO ONE (08:31)
--- NOTE | 2019-05-18 08:46 | PCM.PN ---
- General Info Date of Service: 05/18/19 Subjective Update: Patient reports feeling the best he has felt since being here. Still spiking temps. No longer having diarrhea. - Review of Systems General: Reports: Fever HEENT: Reports: No Symptoms Pulmonary: Reports: No Symptoms Cardiovascular: Reports: No Symptoms Gastrointestinal: Reports: No Symptoms Genitourinary: Reports: No Symptoms Musculoskeletal: Reports: No Symptoms Skin: Reports: No Symptoms Neurological: Reports: No Symptoms Psychiatric: Reports: No Symptoms - Patient Data Vitals - Most Recent: Last Vital Signs Temp 97.3 F 05/18/19 07:49 Pulse 83 05/18/19 07:49 Resp 14 05/18/19 07:49 BP 105/56 L 05/18/19 08:25 Pulse Ox 91 L 05/18/19 07:49 Weight - Most Recent: 81.7 kg I&O - Last 24 Hours: Intake & Output 05/17/19 05/18/19 05/18/19 22:59 06:59 14:59 Intake Total 1000 1910 Output Total 800 1120 Balance 200 790 Lab Results Last 24 Hours: Laboratory Results - last 24 hr 05/13/19 05/17/19 05/18/19 Range/Units 14:00 02:22 05:05 WBC 0.59 L (4.0-11.0) K/uL RBC 2.91 L (4.50-5.90) M/uL Hgb 8.0 L (13.0-17.0) g/dL Hct 23.7 L (38.0-50.0) % MCV 81.4 (80.0-98.0) fL MCH 27.5 (27.0-32.0) pg MCHC 33.8 (31.0-37.0) g/dL RDW Std Deviation 52.9 (28.0-62.0) fl RDW Coeff of Harika 18 H (11.0-15.0) % Plt Count 41 L (150-400) K/uL MPV 10.50 (7.40-12.00) fL Add Manual Diff YES Neutrophils % (Manual) 41 L (48.0-80.0) % Band Neutrophils % 15 % Lymphocytes % (Manual) 19 (16.0-40.0) % Monocytes % (Manual) 7 (0.0-15.0) % Eosinophils % (Manual) 1 (0.0-7.0) % Basophils % (Manual) 1 (0.0-1.5) % Metamyelocytes % 11 % Myelocytes % 5 % Nucleated RBC % 0.0 /100WBC Absolute Seg Neuts 0.2 L (1.4-5.7) Band Neutrophils # 0.1 Lymphocytes # (Manual) 0.1 L (0.6-2.4) Monocytes # (Manual) 0.0 (0.0-0.8) Eosinophils # (Manual) 0.0 (0.0-0.7) Basophils # (Manual) 0.0 (0.0-0.1) Absolute Metamyelocyte 0.1 Absolute Myelocytes 0 Nucleated RBCs # 0 K/uL Sodium (136-148) mmol/L Potassium (3.5-5.1) mmol/L Chloride (98-107) mmol/L Carbon Dioxide (21.0-32.0) mmol/L BUN (7.0-18.0) mg/dL Creatinine (0.8-1.3) mg/dL Est Cr Clr Drug Dosing mL/min Estimated GFR (MDRD) ml/min Glucose (74-106) mg/dL Calcium (8.5-10.1) mg/dL Magnesium (1.8-2.4) mg/dL Blood Type AB POSITIVE Antibody Screen NEGATIVE Crossmatch See Detail Tx Rx Implicated Unit 1 [id number] Unit 1 Component RBC Pre-Trans Vis Hemolysis NEGATIVE Pre-Trans Icterus NEGATIVE Post-Trans Blood Type AB POSTIIVE Post-Tx Visible Hemolys NEGATIVE Post-Trans Icterus NEGATIVE Post-Trans LAMONT Poly NEGATIVE Reaction Interpretation NON-HEM TRANSF RX 05/18/19 Range/Units 05:05 WBC (4.0-11.0) K/uL RBC (4.50-5.90) M/uL Hgb (13.0-17.0) g/dL Hct (38.0-50.0) % MCV (80.0-98.0) fL MCH (27.0-32.0) pg MCHC (31.0-37.0) g/dL RDW Std Deviation (28.0-62.0) fl RDW Coeff of Harika (11.0-15.0) % Plt Count (150-400) K/uL MPV (7.40-12.00) fL Add Manual Diff Neutrophils % (Manual) (48.0-80.0) % Band Neutrophils % % Lymphocytes % (Manual) (16.0-40.0) % Monocytes % (Manual) (0.0-15.0) % Eosinophils % (Manual) (0.0-7.0) % Basophils % (Manual) (0.0-1.5) % Metamyelocytes % % Myelocytes % % Nucleated RBC % /100WBC Absolute Seg Neuts (1.4-5.7) Band Neutrophils # Lymphocytes # (Manual) (0.6-2.4) Monocytes # (Manual) (0.0-0.8) Eosinophils # (Manual) (0.0-0.7) Basophils # (Manual) (0.0-0.1) Absolute Metamyelocyte Absolute Myelocytes Nucleated RBCs # K/uL Sodium 135 L (136-148) mmol/L Potassium 3.4 L (3.5-5.1) mmol/L Chloride 100 (98-107) mmol/L Carbon Dioxide 26.7 (21.0-32.0) mmol/L BUN 13 (7.0-18.0) mg/dL Creatinine 1.1 (0.8-1.3) mg/dL Est Cr Clr Drug Dosing 61.39 mL/min Estimated GFR (MDRD) > 60.0 ml/min Glucose 93 (74-106) mg/dL Calcium 7.4 L (8.5-10.1) mg/dL Magnesium 2.1 (1.8-2.4) mg/dL Blood Type Antibody Screen Crossmatch Tx Rx Implicated Unit 1 Unit 1 Component Pre-Trans Vis Hemolysis Pre-Trans Icterus Post-Trans Blood Type Post-Tx Visible Hemolys Post-Trans Icterus Post-Trans LAMONT Poly Reaction Interpretation Darryn Results Last 24 Hours: Microbiology 05/13/19 16:36 Aerobic Blood Culture - Preliminary Blood - Venous NO GROWTH AFTER 4 DAYS Anaerobic Blood Culture - Preliminary NO GROWTH AFTER 4 DAYS 05/13/19 14:00 Aerobic Blood Culture - Preliminary Blood - Venous - Lab Draw NO GROWTH AFTER 4 DAYS Anaerobic Blood Culture - Preliminary NO GROWTH AFTER 4 DAYS 05/13/19 13:41 Aerobic Blood Culture - Preliminary Blood - Venous NO GROWTH AFTER 4 DAYS Anaerobic Blood Culture - Preliminary NO GROWTH AFTER 4 DAYS 05/13/19 19:08 Shiga Toxin I & II - Final Stool / Feces 05/15/19 09:32 Aerobic Blood Culture - Preliminary Blood NO GROWTH AFTER 2 DAYS Anaerobic Blood Culture - Preliminary NO GROWTH AFTER 2 DAYS 05/15/19 09:22 Aerobic Blood Culture - Preliminary Blood NO GROWTH AFTER 2 DAYS Anaerobic Blood Culture - Preliminary NO GROWTH AFTER 2 DAYS Med Orders - Current: Current Medications Acetaminophen (Tylenol) 650 mg PO Q4H PRN PRN Reason: Pain/Fever Last Admin: 05/18/19 04:18 Dose: 650 mg Al Hydroxide/Mg Hydroxide (Mag-Al Plus) 30 ml PO Q4H PRN PRN Reason: Abdominal Pain Last Admin: 05/17/19 22:08 Dose: 30 ml Amlodipine Besylate (Norvasc) 5 mg PO DAILY [facility] Last Admin: 05/18/19 08:25 Dose: Not Given Fentanyl (Duragesic) 25 mcg TRDERM Q72H [facility] Last Admin: 05/17/19 17:32 Dose: 25 mcg Fentanyl (Duragesic) 12 mcg TRDERM Q72H [facility] Last Admin: 05/17/19 17:34 Dose: 12 mcg Filgrastim (Neupogen) 480 mcg SUBCUT DAILY [facility] Last Admin: 05/17/19 08:57 Dose: 480 mcg Finasteride (Proscar) 5 mg PO DAILY [facility] Last Admin: 05/18/19 08:25 Dose: 5 mg Meropenem 2 gm/ Sodium (Chloride) 100 mls @ 100 mls/hr IV Q8H [facility] Last Admin: 05/18/19 04:20 Dose: 100 mls/hr Loperamide HCl (Imodium) 2 mg PO Q4H PRN PRN Reason: Diarrhea Last Admin: 05/15/19 13:05 Dose: 2 mg Losartan Potassium (Cozaar) 50 mg PO DAILY [facility] Last Admin: 05/18/19 08:24 Dose: Not Given Morphine Sulfate (Morphine) 15 mg PO Q4H PRN PRN Reason: Pain Last Admin: 05/17/19 17:26 Dose: 15 mg Ondansetron HCl (Zofran) 4 mg IVPUSH Q4H PRN PRN Reason: Nausea/Vomiting Last Admin: 05/16/19 12:58 Dose: 4 mg Prochlorperazine Edisylate (Compazine) 5 mg IVPUSH Q6H PRN PRN Reason: Nausea/Vomiting Tamsulosin HCl (Flomax) 0.4 mg PO DAILY [facility] Last Admin: 05/18/19 08:24 Dose: 0.4 mg Discontinued Medications Acetaminophen (Tylenol Extra Strength) 1,000 mg PO ONETIME ONE Stop: 05/13/19 15:49 Last Admin: 05/13/19 15:54 Dose: 1,000 mg Diltiazem HCl (Diltiazem) 20 mg IVPUSH ONETIME ONE Stop: 05/17/19 22:01 Last Admin: 05/17/19 22:50 Dose: Not Given Diphenhydramine HCl (Benadryl) 25 mg PO ONETIME ONE Stop: 05/16/19 15:39 Last Admin: 05/16/19 15:57 Dose: 25 mg Fentanyl (Duragesic) 25 mcg TRDERM Q72H [facility] Last Admin: 05/13/19 19:16 Dose: Not Given Fentanyl (Duragesic) 25 mcg TRDERM Q72H [facility] Last Admin: 05/14/19 07:13 Dose: Not Given Fentanyl (Duragesic) 12 mcg TRDERM Q72H [facility] Last Admin: 05/14/19 07:13 Dose: Not Given Sodium Chloride (Normal Saline) 1,000 mls @ 999 mls/hr IV STAT ONE Stop: 05/13/19 14:37 Last Admin: 05/13/19 14:01 Dose: 999 mls/hr Piperacillin Sod/Tazobactam (Sod 4.5 gm/ Sodium Chloride) 100 mls @ 100 mls/hr IV ONETIME ONE Stop: 05/13/19 15:49 Last Admin: 05/13/19 14:59 Dose: 100 mls/hr Sodium Chloride (Normal Saline) 1,000 mls @ 999 mls/hr IV STAT [facility] Last Admin: 05/13/19 14:58 Dose: 999 mls/hr Piperacillin Sod/Tazobactam (Sod 4.5 gm/ Sodium Chloride) 100 mls @ 100 mls/hr IV Q6H [facility] Last Admin: 05/13/19 19:17 Dose: Not Given Sodium Chloride (Normal Saline) 1,000 mls @ 125 mls/hr IV ASDIRECTED [facility] Last Admin: 05/15/19 12:49 Dose: 125 mls/hr Piperacillin Sod/Tazobactam (Sod 4.5 gm/ Sodium Chloride) 100 mls @ 100 mls/hr IV Q6H [facility] Last Admin: 05/15/19 03:16 Dose: Not Given Piperacillin Sod/Tazobactam (Sod 4.5 gm/ Sodium Chloride) 100 mls @ 100 mls/hr IV Q6H [facility] Last Admin: 05/17/19 09:00 Dose: 100 mls/hr Magnesium Sulfate 4 gm/ Premix 100 mls @ 25 mls/hr IV ONETIME ONE Stop: 05/15/19 11:51 Last Admin: 05/15/19 08:58 Dose: 25 mls/hr Meropenem 2 gm/ Sodium (Chloride) 100 mls @ 100 mls/hr IV Q8H [facility] Last Admin: 05/17/19 13:01 Dose: 100 mls/hr Lactated Ringer's (Ringers, Lactated) 1,000 mls @ 999 mls/hr IV .BOLUS ONE Stop: 05/17/19 22:59 Last Admin: 05/18/19 00:15 Dose: 999 mls/hr Magnesium Sulfate 2 gm/ Premix 50 mls @ 50 mls/hr IV ONETIME ONE Stop: 05/17/19 23:02 Last Admin: 05/17/19 23:10 Dose: 50 mls/hr Propofol (Diprivan 100 Ml) Confirm Administered Dose 100 mls @ as directed .ROUTE .STK-MED ONE Stop: 05/18/19 01:44 Last Admin: 05/18/19 02:11 Dose: Not Given Iopamidol (Isovue Multipack-370 (76%)) 100 ml IVPUSH ONETIME STA Stop: 05/13/19 17:47 Last Admin: 05/13/19 17:47 Dose: 100 ml Non-Formulary Medication (Fentanyl [Fentanyl]) 12 mcg TRDERM Q72H [facility] Last Admin: 05/13/19 19:17 Dose: Not Given Potassium Chloride (Klor-Con M20) 40 meq PO ONETIME ONE Stop: 05/14/19 12:03 Last Admin: 05/14/19 12:36 Dose: 40 meq Potassium Chloride (Klor-Con M20) 40 meq PO ONETIME ONE Stop: 05/15/19 06:44 Last Admin: 01/26/20 07:29 Dose: 40 meq Potassium Chloride (Klor-Con M20) 40 meq PO ONETIME ONE Stop: 05/17/19 07:12 Last Admin: 05/17/19 07:18 Dose: 40 meq Potassium Chloride (Klor-Con M20) 40 meq PO ONETIME ONE Stop: 05/17/19 21:01 Last Admin: 05/17/19 21:41 Dose: 40 meq Potassium Chloride (Klor-Con M20) 40 meq PO ONETIME ONE Stop: 05/18/19 07:24 Potassium Chloride (Potassium Chloride) 40 meq PO ONETIME ONE Stop: 05/18/19 08:32 Vancomycin HCl (Pharmacy To Dose - Vancomycin) 1 dose .XX ASDIRECTED SMITH - Exam Quality Assessment: No: Supplemental Oxygen General: Alert, Oriented, Cooperative Lungs: Clear to Auscultation, Normal Respiratory Effort Cardiovascular: Regular Rate, Regular Rhythm GI/Abdominal Exam: Normal Bowel Sounds, Soft, Non-Tender Extremities: No Pedal Edema Skin: Warm, Dry, Intact Neurological: No New Focal Deficit Psy/Mental Status: Alert, Normal Affect, Normal Mood Sepsis Event Note - Evaluation Sepsis Screening Result: Severe Sepsis Risk - Focused Exam Vital Signs: Vital Signs Temp Temp Temp Pulse Pulse Resp BP 05/18/19 08:25 105/56 L 05/18/19 08:24 105/56 L 05/18/19 07:49 97.3 F 83 83 14 05/18/19 05:44 100.2 F 05/18/19 04:58 98.6 F 99 18 05/18/19 04:18 214.7 F H 05/18/19 01:02 37.5 F L 102 H 16 BP Pulse Ox 05/18/19 08:25 05/18/19 08:24 05/18/19 07:49 105/56 L 91 L 05/18/19 05:44 05/18/19 04:58 119/56 L 93 L 05/18/19 04:18 05/18/19 01:02 141/75 H 89 L Date Exam was Performed: 05/18/19 Time Exam was Performed: 10:48 - Problem List Review Problem List Initiated/Reviewed/Updated: Yes - Plan Plan:: 1. Neutropenic fever with Tcell lymphoma- WBC improving from 0.28 to 0.58, getting daily Neupogen. Blood cultures negative. Still having fevers, continue Meropenem, add Vancomycin. Tylenol for fever. Once ANC >500, if still spiking fevers will discuss with ID and oncology about plan. 2. Pancytopenia s/p transfusion 4 units PRBCs and 1 unit of platelets- secondary to chemotherapy- WBC improving, Hemoglobin went from 8.3 to 8, will transfuse if drops below 8, Platelets improved from 20 to 41 Continue to monitor. 3. Hypokalemia- replaced, recheck in AM 4. Chronic conditions- HTN, hyperlipidemia, BPH- home meds
[2019-05-18] MEDS: Filgrastim 300 MCG/ML SDV SUBCUT SCH (09:06)
[2019-05-18] MEDS: Aluminum Hydroxide/Magnesium Hydroxide/Simethicone Susp 30 ML Cup PO PRN (18:01)
[2019-05-18] MEDS: Morphine 15 MG Tab PO PRN (18:20)
[2019-05-18] MEDS ORDERED: Diphenhydramine/Lidocaine/Nystatin Suspension 237 ML Bottle PO PRN (21:39)
[2019-05-18] MEDS ORDERED: Diltiazem 25 MG/5 ML SDV IVPUSH ONE (22:56)
[2019-05-18] MEDS ORDERED: Diltiazem 25 MG/5 ML SDV ONE (23:02)
[2019-05-19] MEDS ORDERED: Iopamidol 755 Mg/ML 100 ML Bottle IVPUSH STA (00:42)
--- NOTE | 2019-05-19 01:11 | CT ---
INDICATION: Chest pain TECHNIQUE: CT chest pulmonary PE protocol acquired with 100 cc Isovue 370 IV contrast. COMPARISON: Chest radiograph May 03, 2019 FINDINGS: Cardiovascular structures: Normal vascular enhancement of the pulmonary arteries, no sign of pulmonary embolism. Heart size is normal. Coronary artery calcifications. No sign of aneurysm in the thoracic aorta. Right-sided Port-A-Cath tip terminates at the level of the distal superior vena cava. Mediastinum and parish: Subcarinal lymph node measures 2.1 cm. AP window lymph node measures 1.4 cm, right paratracheal lymph node measures 1.3 cm left paratracheal lymph node measures 1.7 cm there is a 1.2 cm lymph node to the left side of the distal descending thoracic aorta. Lungs: Clear. Pleura and pericardium: Trace pericardial effusion. Small right and trace left pleural effusions. Chest wall and axilla: No mass or adenopathy. Upper abdomen: Partially visualized heterogeneous mass in the right kidney measuring 11.9 x 10.5 cm. Small amount of ascites. Bones: No significant findings. IMPRESSION: No pulmonary embolism or pneumonia. Small right and trace left pleural effusions. Coronary artery disease. Trace pericardial effusion. Partially visualized heterogeneous mass in the right kidney with diffuse mediastinal adenopathy. Small amount of ascites. Please note that all CT scans at this facility use dose modulation, iterative reconstruction, and/or weight-based dosing when appropriate to reduce radiation dose to as low as reasonably achievable. Dictated by Bianca Huitron MD @ May 19 2019 12:59AM Signed by Dr. Bianca Huitron @ May 19 2019 1:10AM
[2019-05-19] MEDS: Meropenem 2 GM in Sodium Chloride 0.9% 100 ML IV SCH ×2 (04:37→14:40)
[2019-05-19 06:34] LABS: BLOOD UREA NITROGEN,BUN 13 mg/dL (7.0-18.0); CHLORIDE,CL 100 mmol/L (98-107); GLUCOSE RANDOM 86 mg/dL (74-106); POTASSIUM,K 3.7 mmol/L (3.5-5.1); SODIUM,NA 134 mmol/L (136-148)
[2019-05-19] MEDS ORDERED: Metoprolol Tartrate 25 MG Tab PO SCH (09:00)
--- NOTE | 2019-05-19 09:06 | PCM.PN ---
- General Info Date of Service: 05/19/19 Subjective Update: Patient reports he feels fine. Went into Afib last night, received Diltiazem went back to SR/ST. CTA obtained and negative. Patient can't feel the Afib. - Review of Systems General: Reports: Fever HEENT: Reports: No Symptoms Pulmonary: Reports: No Symptoms Cardiovascular: Reports: No Symptoms Gastrointestinal: Reports: No Symptoms Genitourinary: Reports: No Symptoms Musculoskeletal: Reports: No Symptoms Skin: Reports: No Symptoms Neurological: Reports: No Symptoms Psychiatric: Reports: No Symptoms - Patient Data Vitals - Most Recent: Last Vital Signs Temp 98.2 F 05/19/19 07:05 Pulse 98 05/19/19 07:05 Resp 18 05/19/19 07:05 BP 140/66 05/19/19 07:05 Pulse Ox 94 L 05/19/19 07:05 Weight - Most Recent: 81.7 kg I&O - Last 24 Hours: Intake & Output 05/18/19 05/19/19 05/19/19 22:59 06:59 14:59 Intake Total 400 950 Output Total 700 1250 Balance -300 -300 Lab Results Last 24 Hours: Laboratory Results - last 24 hr 05/18/19 05/19/19 05/19/19 Range/Units 23:20 00:44 05:18 WBC 1.16 L (4.0-11.0) K/uL RBC 3.07 L (4.50-5.90) M/uL Hgb 8.4 L (13.0-17.0) g/dL Hct 25.2 L (38.0-50.0) % MCV 82.1 (80.0-98.0) fL MCH 27.4 (27.0-32.0) pg MCHC 33.3 (31.0-37.0) g/dL RDW Std Deviation 54.1 (28.0-62.0) fl RDW Coeff of Harika 18 H (11.0-15.0) % Plt Count 42 L (150-400) K/uL MPV 10.50 (7.40-12.00) fL Add Manual Diff YES Neutrophils % (Manual) 55 (48.0-80.0) % Band Neutrophils % 19 % Lymphocytes % (Manual) 14 L (16.0-40.0) % Monocytes % (Manual) 3 (0.0-15.0) % Metamyelocytes % 7 % Myelocytes % 2 % Nucleated RBC % 0.0 /100WBC Absolute Seg Neuts 0.6 L (1.4-5.7) Band Neutrophils # 0.2 Lymphocytes # (Manual) 0.2 L (0.6-2.4) Monocytes # (Manual) 0.0 (0.0-0.8) Absolute Metamyelocyte 0.1 Absolute Myelocytes 0 Nucleated RBCs # 0 K/uL D-Dimer, Quantitative 8.24 H (0.0-0.50) mg/L FEU Sodium (136-148) mmol/L Potassium (3.5-5.1) mmol/L Chloride (98-107) mmol/L Carbon Dioxide (21.0-32.0) mmol/L BUN (7.0-18.0) mg/dL Creatinine (0.8-1.3) mg/dL Est Cr Clr Drug Dosing mL/min Estimated GFR (MDRD) ml/min Glucose (74-106) mg/dL Calcium (8.5-10.1) mg/dL Magnesium (1.8-2.4) mg/dL Urine Color YELLOW Urine Appearance CLEAR Urine pH 7.0 (5.0-8.0) Ur Specific [place] 1.020 (1.001-1.035) Urine Protein 30 H (NEGATIVE) mg/dL Urine Glucose (UA) NEGATIVE (NEGATIVE) mg/dL Urine Ketones TRACE H (NEGATIVE) mg/dL Urine Occult Blood NEGATIVE (NEGATIVE) Urine Nitrite NEGATIVE (NEGATIVE) Urine Bilirubin NEGATIVE (NEGATIVE) Urine Urobilinogen 0.2 (<2.0) EU/dL Ur Leukocyte Esterase NEGATIVE (NEGATIVE) Urine RBC 0-1 (0-2/HPF) Urine WBC 0-1 (0-5/HPF) Ur Epithelial Cells RARE (NONE-FEW) Urine Bacteria RARE (NEGATIVE) 05/19/19 Range/Units 05:18 WBC (4.0-11.0) K/uL RBC (4.50-5.90) M/uL Hgb (13.0-17.0) g/dL Hct (38.0-50.0) % MCV (80.0-98.0) fL MCH (27.0-32.0) pg MCHC (31.0-37.0) g/dL RDW Std Deviation (28.0-62.0) fl RDW Coeff of Harika (11.0-15.0) % Plt Count (150-400) K/uL MPV (7.40-12.00) fL Add Manual Diff Neutrophils % (Manual) (48.0-80.0) % Band Neutrophils % % Lymphocytes % (Manual) (16.0-40.0) % Monocytes % (Manual) (0.0-15.0) % Metamyelocytes % % Myelocytes % % Nucleated RBC % /100WBC Absolute Seg Neuts (1.4-5.7) Band Neutrophils # Lymphocytes # (Manual) (0.6-2.4) Monocytes # (Manual) (0.0-0.8) Absolute Metamyelocyte Absolute Myelocytes Nucleated RBCs # K/uL D-Dimer, Quantitative (0.0-0.50) mg/L FEU Sodium 134 L (136-148) mmol/L Potassium 3.7 (3.5-5.1) mmol/L Chloride 100 (98-107) mmol/L Carbon Dioxide 25.0 (21.0-32.0) mmol/L BUN 13 (7.0-18.0) mg/dL Creatinine 1.1 (0.8-1.3) mg/dL Est Cr Clr Drug Dosing 61.39 mL/min Estimated GFR (MDRD) > 60.0 ml/min Glucose 86 (74-106) mg/dL Calcium 7.6 L (8.5-10.1) mg/dL Magnesium 1.8 (1.8-2.4) mg/dL Urine Color Urine Appearance Urine pH (5.0-8.0) Ur Specific [place] (1.001-1.035) Urine Protein (NEGATIVE) mg/dL Urine Glucose (UA) (NEGATIVE) mg/dL Urine Ketones (NEGATIVE) mg/dL Urine Occult Blood (NEGATIVE) Urine Nitrite (NEGATIVE) Urine Bilirubin (NEGATIVE) Urine Urobilinogen (<2.0) EU/dL Ur Leukocyte Esterase (NEGATIVE) Urine RBC (0-2/HPF) Urine WBC (0-5/HPF) Ur Epithelial Cells (NONE-FEW) Urine Bacteria (NEGATIVE) Darryn Results Last 24 Hours: Microbiology 05/13/19 16:36 Aerobic Blood Culture - Final Blood - Venous NO GROWTH AFTER 5 DAYS Anaerobic Blood Culture - Final NO GROWTH AFTER 5 DAYS 05/13/19 14:00 Aerobic Blood Culture - Final Blood - Venous - Lab Draw NO GROWTH AFTER 5 DAYS Anaerobic Blood Culture - Final NO GROWTH AFTER 5 DAYS 05/13/19 13:41 Aerobic Blood Culture - Final Blood - Venous NO GROWTH AFTER 5 DAYS Anaerobic Blood Culture - Final NO GROWTH AFTER 5 DAYS 05/13/19 19:08 Stool Culture - Preliminary Stool / Feces Shiga Toxin I & II - Final 05/15/19 09:32 Aerobic Blood Culture - Preliminary Blood NO GROWTH AFTER 3 DAYS Anaerobic Blood Culture - Preliminary NO GROWTH AFTER 3 DAYS 05/15/19 09:22 Aerobic Blood Culture - Preliminary Blood NO GROWTH AFTER 3 DAYS Anaerobic Blood Culture - Preliminary NO GROWTH AFTER 3 DAYS Med Orders - Current: Current Medications Acetaminophen (Tylenol) 650 mg PO Q4H PRN PRN Reason: Pain/Fever Last Admin: 05/18/19 19:41 Dose: 650 mg Al Hydroxide/Mg Hydroxide (Mag-Al Plus) 30 ml PO Q4H PRN PRN Reason: Abdominal Pain Last Admin: 05/18/19 18:01 Dose: 30 ml Amlodipine Besylate (Norvasc) 5 mg PO DAILY [facility] Last Admin: 05/18/19 08:25 Dose: Not Given Diphenhydramine/Nystatin/Lidocaine (Magic Mouthwash) 10 ml PO QID PRN PRN Reason: oral sores Fentanyl (Duragesic) 25 mcg TRDERM Q72H [facility] Last Admin: 05/17/19 17:32 Dose: 25 mcg Fentanyl (Duragesic) 12 mcg TRDERM Q72H [facility] Last Admin: 05/17/19 17:34 Dose: 12 mcg Filgrastim (Neupogen) 480 mcg SUBCUT DAILY [facility] Last Admin: 05/18/19 09:06 Dose: 480 mcg Finasteride (Proscar) 5 mg PO DAILY [facility] Last Admin: 05/18/19 08:25 Dose: 5 mg Meropenem 2 gm/ Sodium (Chloride) 100 mls @ 100 mls/hr IV Q8H [facility] Last Admin: 05/19/19 04:37 Dose: 100 mls/hr Vancomycin HCl 1.25 gm/ Sodium (Chloride) 250 mls @ 166.667 mls/hr IV Q12H [facility] Last Admin: 05/18/19 23:23 Dose: 166.667 mls/hr Metoprolol Tartrate (Lopressor) 25 mg PO Q12H [facility] Morphine Sulfate (Morphine) 15 mg PO Q4H PRN PRN Reason: Pain Last Admin: 05/18/19 18:20 Dose: 15 mg Ondansetron HCl (Zofran) 4 mg IVPUSH Q4H PRN PRN Reason: Nausea/Vomiting Last Admin: 05/16/19 12:58 Dose: 4 mg Prochlorperazine Edisylate (Compazine) 5 mg IVPUSH Q6H PRN PRN Reason: Nausea/Vomiting Tamsulosin HCl (Flomax) 0.4 mg PO DAILY [facility] Last Admin: 05/18/19 08:24 Dose: 0.4 mg Vancomycin HCl (Pharmacy To Dose - Vancomycin) 1 dose .XX ASDIRECTED [facility] Discontinued Medications Acetaminophen (Tylenol Extra Strength) 1,000 mg PO ONETIME ONE Stop: 05/13/19 15:49 Last Admin: 05/13/19 15:54 Dose: 1,000 mg Diltiazem HCl (Diltiazem) 20 mg IVPUSH ONETIME ONE Stop: 05/17/19 22:01 Last Admin: 05/17/19 22:50 Dose: Not Given Diltiazem HCl (Diltiazem) 20 mg IVPUSH ONETIME ONE Stop: 05/18/19 22:57 Last Admin: 05/18/19 23:09 Dose: 10 mg Diltiazem HCl (Diltiazem) Confirm Administered Dose 25 mg .ROUTE .STK-MED ONE Stop: 05/18/19 23:03 Last Admin: 05/18/19 23:17 Dose: Not Given Diphenhydramine HCl (Benadryl) 25 mg PO ONETIME ONE Stop: 05/16/19 15:39 Last Admin: 05/16/19 15:57 Dose: 25 mg Fentanyl (Duragesic) 25 mcg TRDERM Q72H [facility] Last Admin: 05/13/19 19:16 Dose: Not Given Fentanyl (Duragesic) 25 mcg TRDERM Q72H [facility] Last Admin: 05/14/19 07:13 Dose: Not Given Fentanyl (Duragesic) 12 mcg TRDERM Q72H [facility] Last Admin: 05/14/19 07:13 Dose: Not Given Sodium Chloride (Normal Saline) 1,000 mls @ 999 mls/hr IV STAT ONE Stop: 05/13/19 14:37 Last Admin: 05/13/19 14:01 Dose: 999 mls/hr Piperacillin Sod/Tazobactam (Sod 4.5 gm/ Sodium Chloride) 100 mls @ 100 mls/hr IV ONETIME ONE Stop: 05/13/19 15:49 Last Admin: 05/13/19 14:59 Dose: 100 mls/hr Sodium Chloride (Normal Saline) 1,000 mls @ 999 mls/hr IV STAT [facility] Last Admin: 05/13/19 14:58 Dose: 999 mls/hr Piperacillin Sod/Tazobactam (Sod 4.5 gm/ Sodium Chloride) 100 mls @ 100 mls/hr IV Q6H [facility] Last Admin: 05/13/19 19:17 Dose: Not Given Sodium Chloride (Normal Saline) 1,000 mls @ 125 mls/hr IV ASDIRECTED [facility] Last Admin: 05/15/19 12:49 Dose: 125 mls/hr Piperacillin Sod/Tazobactam (Sod 4.5 gm/ Sodium Chloride) 100 mls @ 100 mls/hr IV Q6H [facility] Last Admin: 05/15/19 03:16 Dose: Not Given Piperacillin Sod/Tazobactam (Sod 4.5 gm/ Sodium Chloride) 100 mls @ 100 mls/hr IV Q6H [facility] Last Admin: 05/17/19 09:00 Dose: 100 mls/hr Magnesium Sulfate 4 gm/ Premix 100 mls @ 25 mls/hr IV ONETIME ONE Stop: 05/15/19 11:51 Last Admin: 05/15/19 08:58 Dose: 25 mls/hr Meropenem 2 gm/ Sodium (Chloride) 100 mls @ 100 mls/hr IV Q8H [facility] Last Admin: 05/17/19 13:01 Dose: 100 mls/hr Lactated Ringer's (Ringers, Lactated) 1,000 mls @ 999 mls/hr IV .BOLUS ONE Stop: 05/17/19 22:59 Last Admin: 05/18/19 00:15 Dose: 999 mls/hr Magnesium Sulfate 2 gm/ Premix 50 mls @ 50 mls/hr IV ONETIME ONE Stop: 01/28/20 23:02 Last Admin: 05/17/19 23:10 Dose: 50 mls/hr Propofol (Diprivan 100 Ml) Confirm Administered Dose 100 mls @ as directed .ROUTE .STK-MED ONE Stop: 05/18/19 01:44 Last Admin: 05/18/19 02:11 Dose: Not Given Iopamidol (Isovue Multipack-370 (76%)) 100 ml IVPUSH ONETIME STA Stop: 05/13/19 17:47 Last Admin: 05/13/19 17:47 Dose: 100 ml Iopamidol (Isovue-370 (76%)) 100 ml IVPUSH ONETIME STA Stop: 05/19/19 00:43 Last Admin: 05/19/19 00:42 Dose: 100 ml Loperamide HCl (Imodium) 2 mg PO Q4H PRN PRN Reason: Diarrhea Last Admin: 05/15/19 13:05 Dose: 2 mg Losartan Potassium (Cozaar) 50 mg PO DAILY [facility] Last Admin: 05/18/19 08:24 Dose: Not Given Non-Formulary Medication (Fentanyl [Fentanyl]) 12 mcg TRDERM Q72H [facility] Last Admin: 05/13/19 19:17 Dose: Not Given Potassium Chloride (Klor-Con M20) 40 meq PO ONETIME ONE Stop: 05/14/19 12:03 Last Admin: 05/14/19 12:36 Dose: 40 meq Potassium Chloride (Klor-Con M20) 40 meq PO ONETIME ONE Stop: 05/15/19 06:44 Last Admin: 05/15/19 07:29 Dose: 40 meq Potassium Chloride (Klor-Con M20) 40 meq PO ONETIME ONE Stop: 05/17/19 07:12 Last Admin: 05/17/19 07:18 Dose: 40 meq Potassium Chloride (Klor-Con M20) 40 meq PO ONETIME ONE Stop: 05/17/19 21:01 Last Admin: 05/17/19 21:41 Dose: 40 meq Potassium Chloride (Klor-Con M20) 40 meq PO ONETIME ONE Stop: 05/18/19 07:24 Last Admin: 05/18/19 12:19 Dose: Not Given Potassium Chloride (Potassium Chloride) 40 meq PO ONETIME ONE Stop: 05/18/19 08:32 Last Admin: 01/29/20 09:04 Dose: 40 meq Vancomycin HCl (Pharmacy To Dose - Vancomycin) 1 dose .XX ASDIRECTED [facility] - Exam General: Alert, Oriented, Cooperative Lungs: Clear to Auscultation, Normal Respiratory Effort Cardiovascular: Regular Rate, Regular Rhythm GI/Abdominal Exam: Normal Bowel Sounds, Soft, Non-Tender, No Distention Extremities: No Pedal Edema Skin: Warm, Dry, Intact Neurological: No New Focal Deficit Psy/Mental Status: Alert, Normal Affect, Normal Mood Sepsis Event Note - Evaluation Sepsis Screening Result: Severe Sepsis Risk - Focused Exam Vital Signs: Vital Signs Temp Temp Pulse Resp BP BP Pulse Ox 05/19/19 07:05 98.4 F 98.2 F 98 18 140/66 94 L 05/19/19 04:38 99.7 F 98.1 F 98 139/74 93 L 05/19/19 00:17 97.9 F 98.1 F 82 16 112/61 93 L Date Exam was Performed: 05/19/19 Time Exam was Performed: 10:45 - Problem List Review Problem List Initiated/Reviewed/Updated: Yes - My Orders Last 24 Hours: My Active Orders 05/20/19 05:11 BASIC METABOLIC PANEL,BMP [CHEM] AM CBC WITH AUTO DIFF [HEME] AM MAGNESIUM [CHEM] AM 05/20/19 08:00 Communication Order [RC] PER UNIT ROUTINE 05/21/19 05:11 BASIC METABOLIC PANEL,BMP [CHEM] AM CBC WITH AUTO DIFF [HEME] AM MAGNESIUM [CHEM] AM - Plan Plan:: 1. Neutropenic fever with Tcell lymphoma- WBC improving from 0.58 to 1.16, ANC 858, getting daily Neupogen. Blood cultures negative. Still having fevers, continue Meropenem, add Vancomycin. Spoke with ID, Dr. Whitlock, [facility], who recommended adding anti-fungal and acyclovir. She also recommended getting a CMV viral load. Tylenol for fever. Will repeat CT ab/pelvis. Dr. Jones, oncology, agreed with management. He states that if we rule everything out and try him on these medications for a few days and he still has fevers this could be due to tumor fever from untreated renal cell carcinoma. 2. Pancytopenia s/p transfusion 4 units PRBCs and 1 unit of platelets- secondary to chemotherapy- WBC improving, Hemoglobin stable 8 to 8.4, Platelets stable at 42 Continue to monitor. 3. Paroxysmal Afib- start on metoprolol 25 BID, will start warfarin and will get echo. DR. Riley? 4. Hypokalemia- resolved 5. Chronic conditions- HTN, hyperlipidemia, BPH- [place] [facility]
[2019-05-19] MEDS: Finasteride 5 MG Tab PO SCH (09:11)
[2019-05-19] MEDS: Tamsulosin 0.4 MG Cap.ER PO SCH (09:11)
[2019-05-19] MEDS: amLODIPine 5 MG Tab PO SCH (09:11)
[2019-05-19] MEDS ORDERED: Acyclovir 500 MG in Sodium Chloride 0.9% 100 ML IV SCH ×3 (09:30→10:00)
[2019-05-19] MEDS: Filgrastim 300 MCG/ML SDV SUBCUT SCH (09:54)
--- NOTE | 2019-05-19 10:55 | CT ---
CT abdomen and pelvis Technique: Multiple axial sections were obtained from above the dome of the diaphragm inferiorly through the pubic symphysis. Intravenous contrast and oral contrast not given. There is some contrast being seen within the collecting systems of both kidneys and ureter. Comparison: Previous CT study of 05/13/19. Findings: Large renal mass is noted on the right side. Mass measures about 15.0 cm x 13.8 cm. This mass has slightly increased in size from previous exam which is somewhat surprising given the short interval change. This may relate to small amount of hemorrhage into the mass with some increased density being seen within the mass. Stable cyst within the right kidney is seen. Left kidney appears within normal limits. Increased inflammatory change is noted around this mass which may relate to infection given the patient's history. There is a mild amount of ascites being seen within the abdomen which is slightly increased in amount from previous exam. Right sided pleural effusion is also increased in size. Minimal left-sided pleural effusion is also increased in size. No discrete liver abnormality ureters bleeding abnormality is appreciated. Pancreas is within normal limits. Aorta shows atherosclerotic change which continues into the iliac vessels. No aneurysm is seen. No pelvic mass is seen. Impression: 1. Increasing size of right renal mass from prior exam. There is some increased density possibly due to this mass should having some hemorrhage as an etiology for the increase in size. There is also increased inflammatory-type change around this mass and this could represent infection. 2. Bilateral pleural effusions slightly increasing in amount from prior study. 3. Increasing ascites within the abdomen and pelvis. 4. No additional abnormality is appreciated on this noncontrast exam. Diagnostic code #9 This report was dictated in [place] Standard Time
--- NOTE | 2019-05-19 11:52 | PCM.DCSUM1 ---
Discharge Summary - Hospital Course HPI Initial Comments: Admission Date: 05/13/19 Discharge Date: 05/19/19 Admission Diagnosis: 1. 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 Pancytopenia- secondary to chemotherapy 3. Chronic conditions- HTN, hyperlipidemia, and BPH Discharge Diagnosis: 1. 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 Pancytopenia- secondary to chemotherapy 3. Chronic conditions- HTN, hyperlipidemia, and BPH 4. Diarrhea- resolved 5. Hypokalemia- resolved 6. Hypomagnesemia-resolved 7. Afib- rate controlled 8. 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 He is undergoing chemotherapy, last treatment was . Was admitted 04/22/19 with similar complaints but at that time his Hemoglobin was 6.6 and he received 2 units of PRBC, discharged at 7.8. No cultures grew out during last admission. In the ER, patient was pancytopenic with elevated lactate. UA was negative. CXR was negative. Multiple blood cultures negative. Influenza/Strep negative. Spiked temp of 101.2 in ER and given Tylenol. Was also given 2L of IVF and started on Zosyn. Was admitted to the medical floor. CT ab/pelvis was obtained and showed no acute events but did see his known renal cell carcinoma. For his neutropenic fever, he was kept on Zosyn for several days. When he continued to spike fevers, his antibiotic was switched to Meropenem. He again continued to have fevers, so Vancomycin was added to Meropenem. He continued to spike fevers, so ID in [place] was consulted, they recommended adding anti-fungal and acyclovir. At this time, we repeated his CT ab/pelvis- his renal cell carcinoma had increased in size thought to be due to hemorrhage or infection. It was felt that the patient would be better served at a higher level of care with multiple specialists available. His oncologist is in [place], so we spoke to [facility]. The case was discussed with Dr. Mccormack, hospitalist, who accepted the patient. For his pancytopenia, he was given Neupogen and his WBC/ANC improved to 1.16/858 at time of discharge. He required transfusion of 4 units of blood and 1 unit of platelets. Discharge hemoglobin was 8.4 and platelets were 42. He had diarrhea , stool studies were obtained and negative for infection, as he began to eat more, his diarrhea resolved. He developed hypomagnesemia and hypokalemia, these were replaced and resolved. On his last night of admission, he developed intermittent Afib. He was given IV Diltazem and he converted to sinus rhythm. He was then started on oral metoprolol. Anticoagulation was held due to finding of possible hemorrhage of right kidney. Echo results were pending at time of discharge. Spoke to patient who was agreeable to transfer Disposition: Transfer to [facility] Discharge Condition: vitals stable, tolerating oral diet - Discharge Data Discharge Date: 05/19/19 Discharge Disposition: DC/Tfer to Acute Hospital 02 Condition: Good - Referral to Home Health Primary Care Physician: Maria L Jones MD - Discharge Plan Home Medications: Home Meds Finasteride 5 mg PO DAILY 06/15/17 [History] Morphine 15 mg PO Q4H PRN 02/17/19 [History] fentaNYL [Fentanyl] 12 mcg TRDERM Q72H MDD 37.5 mcg/hr 02/24/19 [History] fentaNYL [Duragesic] 25 mcg TD Q72H MDD 37.5mcg/hr 03/10/19 [History] Tamsulosin HCl [Flomax] 0.4 mg PO DAILY 03/11/19 [History] Alum Hydrox/Mag Hydrox/Simeth [Mag-Al Plus] 30 ml PO Q4H PRN cup 04/25/19 [Rx] Cholecalciferol (Vitamin D3) [Vitamin D] 5,000 unit PO DAILY 05/13/19 [History] L.acidoph,Paracasei, B.lactis [Probiotic] 1 each PO DAILY 05/13/19 [History] Turmeric 400 mg PO DAILY 05/13/19 [History] Metoprolol Tartrate [Lopressor] 25 mg PO Q12H tablet 05/19/19 [Rx] Referrals: Maria L Jones MD [Primary Care Provider] - - Discharge Summary/Plan Comment DC Time >30 min.: Yes - Patient Data Vitals - Most Recent: Last Vital Signs Temp 98.2 F 05/19/19 07:05 Pulse 108 H 05/19/19 09:10 Resp 18 05/19/19 09:10 BP 127/69 05/19/19 09:11 Pulse Ox 94 L 05/19/19 07:05 Weight - Most Recent: 81.7 kg I&O - Last 24 hours: Intake & Output 05/18/19 05/19/19 05/19/19 22:59 06:59 14:59 Intake Total 400 950 Output Total 700 1250 Balance -300 -300 Lab Results - Last 24 hrs: Laboratory Results - last 24 hr 05/18/19 05/19/19 05/19/19 Range/Units 23:20 00:44 05:18 WBC 1.16 L (4.0-11.0) K/uL RBC 3.07 L (4.50-5.90) M/uL Hgb 8.4 L (13.0-17.0) g/dL Hct 25.2 L (38.0-50.0) % MCV 82.1 (80.0-98.0) fL MCH 27.4 (27.0-32.0) pg MCHC 33.3 (31.0-37.0) g/dL RDW Std Deviation 54.1 (28.0-62.0) fl RDW Coeff of Harika 18 H (11.0-15.0) % Plt Count 42 L (150-400) K/uL MPV 10.50 (7.40-12.00) fL Add Manual Diff YES Neutrophils % (Manual) 55 (48.0-80.0) % Band Neutrophils % 19 % Lymphocytes % (Manual) 14 L (16.0-40.0) % Monocytes % (Manual) 3 (0.0-15.0) % Metamyelocytes % 7 % Myelocytes % 2 % Nucleated RBC % 0.0 /100WBC Absolute Seg Neuts 0.6 L (1.4-5.7) Band Neutrophils # 0.2 Lymphocytes # (Manual) 0.2 L (0.6-2.4) Monocytes # (Manual) 0.0 (0.0-0.8) Absolute Metamyelocyte 0.1 Absolute Myelocytes 0 Nucleated RBCs # 0 K/uL INR D-Dimer, Quantitative 8.24 H (0.0-0.50) mg/L FEU Sodium (136-148) mmol/L Potassium (3.5-5.1) mmol/L Chloride (98-107) mmol/L Carbon Dioxide (21.0-32.0) mmol/L BUN (7.0-18.0) mg/dL Creatinine (0.8-1.3) mg/dL Est Cr Clr Drug Dosing mL/min Estimated GFR (MDRD) ml/min Glucose (74-106) mg/dL Calcium (8.5-10.1) mg/dL Magnesium (1.8-2.4) mg/dL Urine Color YELLOW Urine Appearance CLEAR Urine pH 7.0 (5.0-8.0) Ur Specific [place] 1.020 (1.001-1.035) Urine Protein 30 H (NEGATIVE) mg/dL Urine Glucose (UA) NEGATIVE (NEGATIVE) mg/dL Urine Ketones TRACE H (NEGATIVE) mg/dL Urine Occult Blood NEGATIVE (NEGATIVE) Urine Nitrite NEGATIVE (NEGATIVE) Urine Bilirubin NEGATIVE (NEGATIVE) Urine Urobilinogen 0.2 (<2.0) EU/dL Ur Leukocyte Esterase NEGATIVE (NEGATIVE) Urine RBC 0-1 (0-2/HPF) Urine WBC 0-1 (0-5/HPF) Ur Epithelial Cells RARE (NONE-FEW) Urine Bacteria RARE (NEGATIVE) 05/19/19 05/19/19 Range/Units 05:18 10:36 WBC (4.0-11.0) K/uL RBC (4.50-5.90) M/uL Hgb (13.0-17.0) g/dL Hct (38.0-50.0) % MCV (80.0-98.0) fL MCH (27.0-32.0) pg MCHC (31.0-37.0) g/dL RDW Std Deviation (28.0-62.0) fl RDW Coeff of Harika (11.0-15.0) % Plt Count (150-400) K/uL MPV (7.40-12.00) fL Add Manual Diff Neutrophils % (Manual) (48.0-80.0) % Band Neutrophils % % Lymphocytes % (Manual) (16.0-40.0) % Monocytes % (Manual) (0.0-15.0) % Metamyelocytes % % Myelocytes % % Nucleated RBC % /100WBC Absolute Seg Neuts (1.4-5.7) Band Neutrophils # Lymphocytes # (Manual) (0.6-2.4) Monocytes # (Manual) (0.0-0.8) Absolute Metamyelocyte Absolute Myelocytes Nucleated RBCs # K/uL INR 1.13 D-Dimer, Quantitative (0.0-0.50) mg/L FEU Sodium 134 L (136-148) mmol/L Potassium 3.7 (3.5-5.1) mmol/L Chloride 100 (98-107) mmol/L Carbon Dioxide 25.0 (21.0-32.0) mmol/L BUN 13 (7.0-18.0) mg/dL Creatinine 1.1 (0.8-1.3) mg/dL Est Cr Clr Drug Dosing 61.39 mL/min Estimated GFR (MDRD) > 60.0 ml/min Glucose 86 (74-106) mg/dL Calcium 7.6 L (8.5-10.1) mg/dL Magnesium 1.8 (1.8-2.4) mg/dL Urine Color Urine Appearance Urine pH (5.0-8.0) Ur Specific [place] (1.001-1.035) Urine Protein (NEGATIVE) mg/dL Urine Glucose (UA) (NEGATIVE) mg/dL Urine Ketones (NEGATIVE) mg/dL Urine Occult Blood (NEGATIVE) Urine Nitrite (NEGATIVE) Urine Bilirubin (NEGATIVE) Urine Urobilinogen (<2.0) EU/dL Ur Leukocyte Esterase (NEGATIVE) Urine RBC (0-2/HPF) Urine WBC (0-5/HPF) Ur Epithelial Cells (NONE-FEW) Urine Bacteria (NEGATIVE) JEREMIAS Results - Last 24 hrs: Microbiology 05/15/19 09:32 Aerobic Blood Culture - Preliminary Blood NO GROWTH AFTER 4 DAYS Anaerobic Blood Culture - Preliminary NO GROWTH AFTER 4 DAYS 05/15/19 09:22 Aerobic Blood Culture - Preliminary Blood NO GROWTH AFTER 4 DAYS Anaerobic Blood Culture - Preliminary NO GROWTH AFTER 4 DAYS 05/13/19 16:36 Aerobic Blood Culture - Final Blood - Venous NO GROWTH AFTER 5 DAYS Anaerobic Blood Culture - Final NO GROWTH AFTER 5 DAYS 05/13/19 14:00 Aerobic Blood Culture - Final Blood - Venous - Lab Draw NO GROWTH AFTER 5 DAYS Anaerobic Blood Culture - Final NO GROWTH AFTER 5 DAYS 05/13/19 13:41 Aerobic Blood Culture - Final Blood - Venous NO GROWTH AFTER 5 DAYS Anaerobic Blood Culture - Final NO GROWTH AFTER 5 DAYS 05/13/19 19:08 Stool Culture - Preliminary Stool / Feces Shiga Toxin I & II - Final Med Orders - Current: Current Medications Acetaminophen (Tylenol) 650 mg PO Q4H PRN PRN Reason: Pain/Fever Last Admin: 05/18/19 19:41 Dose: 650 mg Al Hydroxide/Mg Hydroxide (Mag-Al Plus) 30 ml PO Q4H PRN PRN Reason: Abdominal Pain Last Admin: 05/18/19 18:01 Dose: 30 ml Diphenhydramine/Nystatin/Lidocaine (Magic Mouthwash) 10 ml PO QID PRN PRN Reason: oral sores Fentanyl (Duragesic) 25 mcg TRDERM Q72H [facility] Last Admin: 05/17/19 17:32 Dose: 25 mcg Fentanyl (Duragesic) 12 mcg TRDERM Q72H [facility] Last Admin: 05/17/19 17:34 Dose: 12 mcg Filgrastim (Neupogen) 480 mcg SUBCUT DAILY [facility] Last Admin: 05/19/19 09:54 Dose: 480 mcg Finasteride (Proscar) 5 mg PO DAILY [facility] Last Admin: 05/19/19 09:11 Dose: 5 mg Meropenem 2 gm/ Sodium (Chloride) 100 mls @ 100 mls/hr IV Q8H [facility] Last Admin: 05/19/19 04:37 Dose: 100 mls/hr Vancomycin HCl 1.25 gm/ Sodium (Chloride) 250 mls @ 166.667 mls/hr IV Q12H [facility] Last Admin: 05/18/19 23:23 Dose: 166.667 mls/hr Acyclovir 500 mg/ Sodium (Chloride) 110 mls @ 100 mls/hr IV Q8H [facility] Last Admin: 05/19/19 10:51 Dose: 100 mls/hr Metoprolol Tartrate (Lopressor) 25 mg PO Q12H [facility] Last Admin: 05/19/19 09:09 Dose: 25 mg Morphine Sulfate (Morphine) 15 mg PO Q4H PRN PRN Reason: Pain Last Admin: 05/18/19 18:20 Dose: 15 mg Ondansetron HCl (Zofran) 4 mg IVPUSH Q4H PRN PRN Reason: Nausea/Vomiting Last Admin: 05/16/19 12:58 Dose: 4 mg Prochlorperazine Edisylate (Compazine) 5 mg IVPUSH Q6H PRN PRN Reason: Nausea/Vomiting Tamsulosin HCl (Flomax) 0.4 mg PO DAILY [facility] Last Admin: 05/19/19 09:11 Dose: 0.4 mg Vancomycin HCl (Pharmacy To Dose - Vancomycin) 1 dose .XX ASDIRECTED [facility] Discontinued Medications Acetaminophen (Tylenol Extra Strength) 1,000 mg PO ONETIME ONE Stop: 05/13/19 15:49 Last Admin: 05/13/19 15:54 Dose: 1,000 mg Amlodipine Besylate (Norvasc) 5 mg PO DAILY [facility] Last Admin: 05/19/19 09:11 Dose: 5 mg Diltiazem HCl (Diltiazem) 20 mg IVPUSH ONETIME ONE Stop: 05/17/19 22:01 Last Admin: 05/17/19 22:50 Dose: Not Given Diltiazem HCl (Diltiazem) 20 mg IVPUSH ONETIME ONE Stop: 05/18/19 22:57 Last Admin: 05/18/19 23:09 Dose: 10 mg Diltiazem HCl (Diltiazem) Confirm Administered Dose 25 mg .ROUTE .STK-MED ONE Stop: 05/18/19 23:03 Last Admin: 05/18/19 23:17 Dose: Not Given Diphenhydramine HCl (Benadryl) 25 mg PO ONETIME ONE Stop: 05/16/19 15:39 Last Admin: 05/16/19 15:57 Dose: 25 mg Fentanyl (Duragesic) 25 mcg TRDERM Q72H [facility] Last Admin: 05/13/19 19:16 Dose: Not Given Fentanyl (Duragesic) 25 mcg TRDERM Q72H [facility] Last Admin: 05/14/19 07:13 Dose: Not Given Fentanyl (Duragesic) 12 mcg TRDERM Q72H [facility] Last Admin: 05/14/19 07:13 Dose: Not Given Sodium Chloride (Normal Saline) 1,000 mls @ 999 mls/hr IV STAT ONE Stop: 05/13/19 14:37 Last Admin: 05/13/19 14:01 Dose: 999 mls/hr Piperacillin Sod/Tazobactam (Sod 4.5 gm/ Sodium Chloride) 100 mls @ 100 mls/hr IV ONETIME ONE Stop: 05/13/19 15:49 Last Admin: 05/13/19 14:59 Dose: 100 mls/hr Sodium Chloride (Normal Saline) 1,000 mls @ 999 mls/hr IV STAT [facility] Last Admin: 05/13/19 14:58 Dose: 999 mls/hr Piperacillin Sod/Tazobactam (Sod 4.5 gm/ Sodium Chloride) 100 mls @ 100 mls/hr IV Q6H [facility] Last Admin: 05/13/19 19:17 Dose: Not Given Sodium Chloride (Normal Saline) 1,000 mls @ 125 mls/hr IV ASDIRECTED [facility] Last Admin: 05/15/19 12:49 Dose: 125 mls/hr Piperacillin Sod/Tazobactam (Sod 4.5 gm/ Sodium Chloride) 100 mls @ 100 mls/hr IV Q6H [facility] Last Admin: 05/15/19 03:16 Dose: Not Given Piperacillin Sod/Tazobactam (Sod 4.5 gm/ Sodium Chloride) 100 mls @ 100 mls/hr IV Q6H [facility] Last Admin: 05/17/19 09:00 Dose: 100 mls/hr Magnesium Sulfate 4 gm/ Premix 100 mls @ 25 mls/hr IV ONETIME ONE Stop: 05/15/19 11:51 Last Admin: 05/15/19 08:58 Dose: 25 mls/hr Meropenem 2 gm/ Sodium (Chloride) 100 mls @ 100 mls/hr IV Q8H [facility] Last Admin: 05/17/19 13:01 Dose: 100 mls/hr Lactated Ringer's (Ringers, Lactated) 1,000 mls @ 999 mls/hr IV .BOLUS ONE Stop: 05/17/19 22:59 Last Admin: 05/18/19 00:15 Dose: 999 mls/hr Magnesium Sulfate 2 gm/ Premix 50 mls @ 50 mls/hr IV ONETIME ONE Stop: 05/17/19 23:02 Last Admin: 05/17/19 23:10 Dose: 50 mls/hr Propofol (Diprivan 100 Ml) Confirm Administered Dose 100 mls @ as directed .ROUTE .STK-MED ONE Stop: 05/18/19 01:44 Last Admin: 05/18/19 02:11 Dose: Not Given Iopamidol (Isovue Multipack-370 (76%)) 100 ml IVPUSH ONETIME STA Stop: 05/13/19 17:47 Last Admin: 05/13/19 17:47 Dose: 100 ml Iopamidol (Isovue-370 (76%)) 100 ml IVPUSH ONETIME STA Stop: 05/19/19 00:43 Last Admin: 05/19/19 00:42 Dose: 100 ml Loperamide HCl (Imodium) 2 mg PO Q4H PRN PRN Reason: Diarrhea Last Admin: 05/15/19 13:05 Dose: 2 mg Losartan Potassium (Cozaar) 50 mg PO DAILY [facility] Last Admin: 05/18/19 08:24 Dose: Not Given Non-Formulary Medication (Fentanyl [Fentanyl]) 12 mcg TRDERM Q72H [facility] Last Admin: 05/13/19 19:17 Dose: Not Given Potassium Chloride (Klor-Con M20) 40 meq PO ONETIME ONE Stop: 05/14/19 12:03 Last Admin: 05/14/19 12:36 Dose: 40 meq Potassium Chloride (Klor-Con M20) 40 meq PO ONETIME ONE Stop: 05/15/19 06:44 Last Admin: 05/15/19 07:29 Dose: 40 meq Potassium Chloride (Klor-Con M20) 40 meq PO ONETIME ONE Stop: 05/17/19 07:12 Last Admin: 05/17/19 07:18 Dose: 40 meq Potassium Chloride (Klor-Con M20) 40 meq PO ONETIME ONE Stop: 05/17/19 21:01 Last Admin: 05/17/19 21:41 Dose: 40 meq Potassium Chloride (Klor-Con M20) 40 meq PO ONETIME ONE Stop: 05/18/19 07:24 Last Admin: 05/18/19 12:19 Dose: Not Given Potassium Chloride (Potassium Chloride) 40 meq PO ONETIME ONE Stop: 05/18/19 08:32 Last Admin: 05/18/19 09:04 Dose: 40 meq Vancomycin HCl (Pharmacy To Dose - Vancomycin) 1 dose .XX ASDIRECTED [facility] Warfarin Sodium (Coumadin Ask) 1 each PO ONETIME ONE Stop: 05/19/19 09:57 Last Admin: 05/19/19 11:24 Dose: Not Given
[2019-05-19 12:21] VITALS: BP 112/63; PULSE 118
[2019-05-19] MEDS ORDERED: IN SODIUM CHLORIDE 0.9% IVPUSH SCH (13:00)
[2019-05-19] MEDS: Morphine 15 MG Tab PO PRN (13:05)
[2019-05-19] MEDS ORDERED: Acyclovir 200 MG Cap PO SCH (14:00)
== END 2019-05-19 13:20 | DRG 809 ==
LOC: MW.ED 13:26 → UNDOADMIN 14:04 → MW.MS 14:04
PROVIDERS: ADMIT Internal Medicine; ATTEND Internal Medicine
PROC: 30233N1 Transfusion of Nonautologous Red Blood Cells into Peripheral Vein, Percutaneous Approach (ICD-10-PCS; principal; 2019-05-17)
PROC: 30233R1 Transfusion of Nonautologous Platelets into Peripheral Vein, Percutaneous Approach (ICD-10-PCS; 2019-05-17)
DX: D70.1 Agranulocytosis secondary to cancer chemotherapy (principal); D70.9 Neutropenia, unspecified; R50.9 Fever, unspecified; H54.7 Unspecified visual loss; C64.9 Malignant neoplasm of unspecified kidney, except renal pelvis; C91.50 Adult T-cell lymphoma/leukemia (HTLV-1-associated) not having achieved remission; R50.81 Fever presenting with conditions classified elsewhere; C67.9 Malignant neoplasm of bladder, unspecified; C85.80 Other specified types of non-Hodgkin lymphoma, unspecified site; D61.810 Antineoplastic chemotherapy induced pancytopenia; T45.1X5A Adverse effect of antineoplastic and immunosuppressive drugs, initial encounter; E83.42 Hypomagnesemia; E87.6 Hypokalemia; I10 Essential (primary) hypertension; E78.5 Hyperlipidemia, unspecified; N40.0 Benign prostatic hyperplasia without lower urinary tract symptoms; N28.89 Other specified disorders of kidney and ureter; E78.00 Pure hypercholesterolemia, unspecified; Z79.890 Hormone replacement therapy; Z79.899 Other long term (current) drug therapy
CPT/HCPCS: 36415; 36430; 71045; 71045-26; 71275; 71275-26; 74176; 74176-26; 74177; 74177-26; 80048; 80053; 81001; 81003; 83605; 83735; 85025; 85379; 85610; 86850; 86900; 86901; 86920; 86921; 86922; 87040; 87045; 87046; 87081; 87324; 87497; 87804; 87880-QW; 87899; 93306; 93970; 93970-26; 96361; 96365; 99284; 99284-25; A9270-GY; J0133; J1447; J2185; J2405; J2543; J3370; J3475; J3490; J7030; J7050; J7120; P9016; P9034; Q9967